=== PATIENT | male | born 1950 | race Caucasian/White ===

== ENCOUNTER 2016-07-20 23:26 | Inpatient (IN) | payer MEDICARE, MEDICAID ==
[~2016-07-20] VITALS: Ht 180.3 cm; Wt 137.4 kg
[2016-07-20 23:33] VITALS: BP 126/73; PULSE 163; RESP 30; O2SAT 86
[2016-07-21] VITALS (16 sets, daily range): BP systolic 88–138; BP diastolic 55–79; PULSE 94–142; RESP 18–25; O2SAT 79–93
--- NOTE | 2016-07-21 00:11 | ED.REPORT ---
HPI-General Illness Date of Service Jul 21, 2016 ED Provider: Dr. Emmett Laughlin The patient is a 65 year old male w/ a hx of chronic A. fib, and CHF who presents to the ED due to SOB for the past 8 days. Associated symptoms include nausea, bloated abdomen, insomnia, diaphoresis, chills, and cough. Pt is on a CPAP at home and he cannot sleep lying down due to SOB . He was hospitalized 2 years ago for similar symptoms. He denies any hx of heart disease, vomiting and chest pain. He has been excessively coughing to try to get a "lump" out of his throat. One year ago he had cardiac testing done which did not reveal any active ischemia. Pt is in rapid a-fib at the ED. Nursing Notes Stated Complaint: SHORT OF BREATH Chief Complaint: Respiratory Distress Nursing Notes Reviewed: Yes Allergies: Coded Allergies: No Known Allergies (Verified Allergy, Severe, POLLEN, 06/07/07) Scheduled Apixaban (Eliquis) 5 Mg Tablet 2.5 MG PO BID Digoxin (Digoxin) 125 Mcg Tablet 125 MCG PO DAILY Ferrous Gluconate (Ferrous Gluconate) 324 Mg Tab 324 MG PO DAILY Furosemide (Furosemide) 40 Mg Tablet 40 MG PO BID Metoprolol Succinate ER (Metoprolol Succinate ER) 50 Mg Tab.er.24h 50 MG PO BID Potassium Chloride (Potassium Chloride) 10 Meq Capsule.er 10 MEQ PO DAILY TAKE WITH FOOD Scheduled PRN Zolpidem (Zolpidem) 10 Mg Tablet 10 MG PO HS PRN PRN HS General Time Seen by MD: 00:11 Chief Complaint Other (shortness of breath ) Hx Obtained From: Patient Arrived By: Walk-in Sudden in Onset?: Yes Onset Occurred: 1 week ago Symptom Duration: Since onset Recent Healthcare: No recent doctor visit, No recent hospitalization Similar Sx Previous: No Past Medical History Past Medical History DM HTN atrial-fib Past Surgical History knee surgery hiatal hernia tonsillectomy Social History Alcohol Use: In recovery Other Social History: Local resident Ambulatory Status Independent Review of Systems bloated abdomen insomnia Full Review of Systems Constitutional: Reports: Chills Respiratory: Reports: Non-productive cough, Shortness of breath Cardiovascular: Denies: Chest pain GI: Reports: Nausea, Denies: Vomiting Skin: Reports Diaphoresis Complete sys rev & neg: except as marked. Physical Exam Vital Signs Vital Signs Date Time Temp Pulse Resp B/P Pulse Ox O2 Delivery O2 Flow Rate FiO2 07/20/16 23:33 36.8 163 30 126/73 86 Room Air Initial VS: Reviewed General/Constitutional: Awake, Alert, Cooperative Appearance / Presentation: Positive: Obese, morbidly, Pale Head / Eyes: Atraumatic, Normocephalic, PERRL, EOMI Respiratory / Chest: Atraumatic Resp Distress / Stridor: Positive: Resp distress mild Diminished Breath Sounds: Positive: Decreased L, Decreased R Rales / Rhonchi: Positive: Rales bilateral up to 1/3 Cardiovascular: No gallop, No murmurs, No rubs Heart Rate / Rhythm: Positive: Irreg irregular rhythm, Tachycardia Lower Ext Edema: Positive: Left 2+, Pitting, Right 2+ rapid a-fib Tenderness/Guarding/Rebound: Positive: Tender diffuse Bowel Sounds / Distention: Positive: Distention moderate Upper Extremities Upper Extremity / MS: Atraumatic, Inspection NL, No deformity Wrist / Hand: Atraumatic, Inspection NL, No deformity Lower Extremity / Pelvis / MS: Atraumatic, No deformity Ankle / Foot: Atraumatic, Inspection NL, No deformity Skin: Atraumatic, Warm, Dry Neurologic: Oriented X3, Speech NL, No motor deficits Interpretation & Diagnostics Lab Results Interpretation Result Diagram: 07/20/16 2354 07/20/16 2354 Test 07/20/16 23:54 07/21/16 00:00 White Blood Count 13.1th/mm3 (3.8-10.1) Red Blood Count 5.17mil/mm3 (4.40-5.80) Hemoglobin 15.5g/dL (13.8-17.2) Hematocrit 47.7% (41.0-50.0) Mean Corpuscular Volume 92.3fL (81-100) Mean Corpuscular Hemoglobin 30.0pg (27.0-35.0) Mean Corpuscular Hemoglobin Concent 32.5% (32.0-37.0) Red Cell Distribution Width 17.2% (12.3-15.4) Platelet Count 262bil/L (150-400) Neutrophils (%) (Auto) 79.1% (40-74) Lymphocytes (%) (Auto) 10.7% (14-46) Monocytes (%) (Auto) 9.4% (4-12) Eosinophils (%) (Auto) 0.1% (0-5) Basophils (%) (Auto) 0.2% (0-3) Prothrombin Time 22.0sec (8.1-12.5) Prothromb Time International Ratio 2.03ratio Activated Partial Thromboplast Time 30.7sec (22.8-33.0) Sodium Level 135mEq/L (134-144) Potassium Level 3.9mEq/L (3.5-5.2) Chloride Level 96mEq/L (97-108) Carbon Dioxide Level 20mmol/L (18-29) Blood Urea Nitrogen 23mg/dL (8-27) Creatinine 0.89mg/dL (0.76-1.27) Estimat Glomerular Filtration Rate 91mL/min (>59) Glucose Level 183mg/dL (60-99) Calcium Level 8.3mg/dL (8.5-10.1) Magnesium Level 2.0mg/dL (1.6-2.6) Total Bilirubin 3.2mg/dL (0.0-1.2) Aspartate Amino Transf (AST/SGOT) 1279U/L (0-50) Alanine Aminotransferase (ALT/SGPT) 922U/L (0-44) Alkaline Phosphatase 105U/L (25-160) Troponin T < 0.010ug/L (0.0-0.011) Pro-B-Type Natriuretic Peptide 3061pg/mL (0-376) Total Protein 6.8g/dL (6.4-8.4) Albumin 3.8g/dL (3.4-5.0) Thyroid Stimulating Hormone (TSH) 1.610uIU/mL (0.450-4.500) Direct Bilirubin 0.8mg/dL (0.0-0.3) Procalcitonin 0.48ng/mL (0.00-0.08) X-Ray Chest Interpretation Chest Xray Interpretation: IMPRESSION: CHF View: Portable Interpretation / Wet Read by: Wet read ED physician Re-Eval/Medical Decision Med Decision/Clinical Course 65-year-old with chronic A. fib, orthopnea PND and increasing congestive heart failure, now with rapid ventricular response with his A. 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 His heart rate is only grudgingly responded to diltiazem. He has had Lasix with some diuresis. Would consider digoxin while under observation in the hospital. Admitted now for further evaluation and management on a diltiazem drip. Time of Eval: 00:15 Re-Evaluation/Progress Note: Pt rechecked. Plan for Lasix. 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 Accepts admit. Counseled Regarding: Diagnosis, Lab results, Need for admission Discharge & Departure Primary Impression: CHF (congestive heart failure) Congestive heart failure type: unspecified congestive heart failure type Congestive heart failure chronicity: unspecified congestive heart failure chronicity Qualified Code: I50.9 - Heart failure, unspecified Additional Impressions: Atrial fibrillation Atrial fibrillation type: chronic Qualified Code: I48.2 - Chronic atrial fibrillation Paroxysmal nocturnal dyspnea Disposition: ADMITTED TO HOSPITAL Discharge Condition All VS Reviewed: Yes Condition: Stable Referrals: NOPCP (PCP) [facility] Crit Care Except Billable Proc Time Spent: 30-74 minutes Services Performed: Patient management by me, Time spent at bedside, Reviewing test results, Reviewing imaging, Discussing patient care, Documentation in record, Time with fam/surrogate Scribe Attestation Portion of this note were transcribed by Yahaira Martinez. I, Dr. Laughlin, personally performed the history, physical exam, and medical decision-making: I reviewed and confirmed the accuracy for the information in the transcribed note. Signed by: joseph Phan, 07/21/16 0500 copies to: [facility] Emmett Laughlin MD Jul 21, 2016 00:11 Yahaira Martinez Jul 21, 2016 00:16
[2016-07-21 00:13] LABS: BASOPHILS % (AUTO) 0.2 % (0-3); EOSINOPHILS % (AUTO) 0.1 % (0-5); MONOCYTES % (AUTO) 9.4 % (4-12); Mean Corpuscular Volume 92.3 fL (81-100); NEUTROPHILS % (AUTO) 79.1 % (40-74); Platelet Count 262 bil/L (150-400)
[2016-07-21] MEDS ORDERED: Diltiazem Inj 125 MG in 0.9% Sodium Chloride 100 ML, Pharmacy To Mix 1 EA IV SCH (00:20)
[2016-07-21] MEDS ORDERED: Furosemide 10 mg/mL 10 mL Inj IVPUSH ONE (00:20)
[2016-07-21] MEDS ORDERED: Diltiazem 5 mg/mL 5 mL Inj IVPUSH ONE ×2 (00:20→02:25)
[2016-07-21 00:37] LABS: INR 2.03 ratio
[2016-07-21 01:21] LABS: TROPONIN T < 0.010 ug/L (0.0-0.011)
[2016-07-21] MEDS ORDERED: Alum-Mag Hydrox-Simeth 30 mL Suspension PO PRN (02:10)
[2016-07-21] MEDS ORDERED: Ondansetron 2 mg/mL 2 mL Inj IVPUSH PRN (02:10)
[2016-07-21] MEDS ORDERED: Polyethylene Glycol (PEG) 17 Gm Powder PO PRN (02:10)
[2016-07-21 03:09] LABS: Bilirubin, Direct 0.8 mg/dL (0.0-0.3)
--- NOTE | 2016-07-21 03:13 | NUR ---
ADMISSION PATIENT ADMITTED TO ROOM 2018 Addendum: 07/21/16 at 0417 by KYLEE MONTOYA RN COMPLETED ADMISSION AND MED REC. PATIENT REPORTS "I CUT MY MEDICATION DOSES IN HALF, BUT I THINK I SHOULDN'T DO THAT ANYMORE." GIVEN MEAL REVIEWED PLAN OF CARE, CPAP AT BEDSIDE. Addendum: 07/21/16 at 0510 by KYLEE MONTOYA RN on arrival to room telemetry is afib rate 130's loc gtt running at 15 mg/hour.
--- NOTE | 2016-07-21 04:02 | PCM.HPMED ---
Subjective Date of Service Jul 21, 2016 Primary Provider: Admitting Physician: Cassandra Shahid DO Primary Care Physician: Ozzy Lowry MD Attending Physician: Cassandra Shahid DO Admit Status: From the Emergency Department Chief Complaint: shortness of breath History of Present Illness: 65-year-old male with past medical history remarkable for high output/ tachycardia associated cardiomyopathy, chronic systolic heart failure, and atrial fibrillation presents with 1 week of worsening shortness of breath. The patient states that he has noted the shortness of breath both with exertion stating he can only walk less than 50ft before needing to stop as well as lying flat. The patient states that he has not been able to sleep more than a few hours due to severe orthopnea. The patient states that he has had a dry cough recently which he is not sure is associated with his heart failure or seasonal allergies. The patient states that he believes his belly is more distended and with associated lower extremity swelling. The patient also admits to nausea without vomiting or diarrhea. Patient states that his heart rate is chronically elevated but not as elevated as it is today. The patient states that he continues to only take half of a tab about quits daily due to rectal bleeding he believes is due to hemorrhoids without a formal diagnosis. He has not had a colonoscopy ever. The patient is also only taking a half tab of metoprolol XL due to drug associated fatigue. 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 The patient had a possible gout flare after his last outpatient cardiology appointment delaying his scheduling of the cardioversion. He states that he lives in [facility] [address] however he remains a patient of Dr. Reeder and Dr. Lowry. Review of Systems: A comprehensive review of systems was obtained and all are negative except for what is included in the history of present illness. Allergies Coded Allergies: No Known Allergies (Verified Allergy, Severe, POLLEN, 06/07/07) Home Medications Ambien 10 mg tablet digoxin 125 mcg tablet take 1/2 tablet by oral route every day Eliquis take 1/2 tablet by oral route 2 times every day FERROUS GLUCONATE 324 MG TAB take 1 tablet by mouth once daily furosemide (LASIX) 40 MG tablet Take 1 tablet by mouth Two times daily. hydrocodone 7.5 mg-acetaminophen 325 mg tablet take 1 tablet by oral route every 8 hours as needed for pain Hyomax 0.125 mg Tab take 1 tablet by mouth four times a day losartan 25 mg tablet take 1 tablet by oral route every day metoprolol succinate ER 50 mg tablet,extended release 24 hr take 1 tablet by oral route 2 times every day Multiple Vitamin Tab take 1 tablet by ORAL route every day with food potassium chloride ER 10 mEq capsule,extended release take 1 capsule by oral route every day with food PMH Tachycardia-induced cardiomyopathy COPD Diabetes mellitus Hypothyroidism Hyperlipidemia Atrial fibrillation Hypertension Chronic lower back pain Cataracts Seasonal allergies IBS Sleep apnea Restless leg syndrome Moderate aortic arch aneurysm Seborrheic dermatitis Diverticulosis History of C. difficile infection Surgical History Tracheostomy in 2007 Percutaneous closure of patent foramen ovale 2007 Right inguinal hernia repair Tonsillectomy Knee surgery Family History The patient was adopted and does not know the health history of his mother or father or 2 siblings. Social History Occupation: retired white Hx Alcohol Use: Yes (quit in 2007) Hx Substance Use: Yes (marijuana only) Hx Tobacco Use: Yes (quit in 2007) Smoking Status: Former Smoker Years of Smokin Living Arrangement: Alone Exam Vital Signs Vital Sign - Last Date Time Temp Pulse Resp B/P Pulse Ox O2 Delivery O2 Flow Rate FiO2 07/21/16 03:06 123 07/21/16 02:55 36.8 20 126/64 90 Nasal Cannula 5 Exam Gen.: obese male in no acute distress sitting comfortably in bed Eyes: Pupils equal round and reactive to light, extraocular motion intact, mild icteric sclera, noninjected conjunctiva HENT: Normocephalic atraumatic, moist mucous membranes without central cyanosis , sublingual jaundice noted without cobblestoning mucosa Neck: Supple, trachea midline, thick neck without noted JVD Cardiovascular: tachycardia with irregularly irregular rhythm, no murmurs rubs or gallops noted Lungs: rales noted in the bases bilaterally, no wheezing noted GI: nontender, normal active bowel sounds, distended, tympanic to percussion Extremities: 2+ peripheral edema to the knee, Pulses intact at radial and dorsalis pedis bilaterally Skin: Warm and dry, very mild chronic venous stasis changes in bilateral lower extremities right worse than left : No Kiser in place Lymph: no cervical or supraclavicular lymphadenopathy Neuro: No focal neurologic deficits MSK: no erythema or edema of joints, ROM is WNL Psych: Normal mood and affect Lab and Diagnostics Result Diagram: 07/20/16 0966 07/20/16 0033 Cardiac Echo Impressions Echocardiogram Report from 10/30/2014 Interpretation Summary The left ventricle is mild-moderately dilated. Left ventricular systolic function is moderately reduced. The ejection fraction is estimated to be 40- 45%. There is moderate hypokinesis along the septum and basal/mid inferior wall with the lateral wall showing preserved augmentation. The right ventricle is mildly dilated. Right ventricular systolic function is mildly reduced. The right ventricular systolic pressure is estimated at 35 mmHg assuming a right atrial pressure of 3 mm Hg. The left atrium is severely dilated. The right atrium is severely dilated. An ASD closure device is visualized. There is mild mitral regurgitation. There is no other significant valvular heart disease. The aortic root is moderately dilated. The ascending aorta is mildly enlarged. Reading Physician:PM Assessment & Plan 65-year-old male with past medical history remarkable for high output/ tachycardia associated cardiomyopathy, chronic systolic heart failure, and atrial fibrillation presents with 1 week of worsening shortness of breath. # atrial fibrillation with rapid ventricular response - Records indicate the patient was last seen by cardiology in May 2016 with plans for possible cardioversion in the future, and switched from carvedilol to metoprolol XL with possible future induction of diltiazem with improved ejection fraction - ECG shows A. fib with RVR - Patient given diltiazem loading dose 10mg and continued on diltiazem drip from ED - Complete echo ordered - Continue outpatient Apixaban at standard dosing, monitoring for lower GI bleed per patient report with full regular dosing - Continue outpatient metoprolol XL 50mg daily - Optimize electrolytes, monitor with daily BMP # Tachycardia induced cardiomyopathy - Echocardiogram from 2014 shows EF of 40-45% - Continue outpatient metoprolol XL 50 mg daily - Continue outpatient digoxin 0.0625mg - Patient given diltiazem loading dose 10mg and continued on diltiazem drip from ED # Acute exacerbation of Chronic systolic heart failure - Patient appears hypervolemic on exam, and elevated Pro-BNP 3061 - Echocardiogram from 2014 shows EF of 40-45% - Continue outpatient metoprolol XL 50 mg daily - Continue outpatient losartan 25 mg daily - Patient already received furosemide 80 mg IV push once in the ED - Lasix 40mg IV at twice daily at 08:30 and 14:30 # Leukocytosis - Patient is SIRS positive with WBC 13.1, heart rate 163, respiratory rate 30 - Elevated Lactic Acid 2.5 with elevated procalcitonin of 0.48 consistent with possible infection - No definitive source of infection is identified and patient does not appear acutely infectious at this time - Patient is hypervolemic with CHF described above avoid IV fluids - Acute hepatitis panel ordered - Blood cultures ordered - CXR ordered and pending - Patient has a history of C. difficile infection avoid unwanted antibiotics # Transaminitis with elevated indirect bilirubin - AST 1279 and ALT 922 with indirect bilirubin 2.4 - Patient denies risky sexual activity or illicit drug use - Acute hepatitis panel ordered - Potential congestive hepatopathy # Diabetes mellitus - Per [facility] records which also indicated an A1c of 5.8 in September 2015 - Correction scale lispro ordered - Constant carb diet # Subclinical Hypothyroidism - Per [facility] records which also indicated an TSH of 0.811 in June 2012 - TSH ordered - Not currently on outpatient medication # Hyperlipidemia - Per [facility] records which also indicated LDL 107, HDL 39, total cholesterol 177 - Not currently on outpatient medication # History of Moderate aortic arch aneurysm - Complete echo ordered - Monitor # History of lower GI bleed - [facility] records indicate possible diverticulosis - Patient indicates bright blood on toilet tissue when taking full dose of Apixaban - Encourage patient to obtain colonoscopy in near future - Hemoglobin is 15.5 - Monitor with initiation of full dose Apixaban DVT prophylaxis: Continue Apixaban GI prophylaxis: Not indicated CODE STATUS full The patient is admitted to inpatient status with expected length of stay greater than 2 midnights given presenting symptoms likely diagnosis possible complications and required treatment. Pain Evaluation: Adequate Pain Control GI Prophylaxis: Not indicated VTE Prophylaxis Indicated: Meets Criteria for Anticoag Therapy VTE Prophylaxis: Other (on our was chronically) Resuscitation Status: CPR: Attempt Resuscitation Attending Statement The patient was seen and examined together with house staff on 07/21/2016 and I agree with the history, exam and plan as outlined in the note above. Fam Baker DO Jul 21, 2016 04:02 Cassandra Shahid DO Jul 21, 2016 05:40
[2016-07-21] MEDS ORDERED: DIGO125T73 PO (04:13)
[2016-07-21] MEDS ORDERED: METO-272 PO (04:13)
[2016-07-21] MEDS ORDERED: ZOLP10TA5 PO (04:13)
[2016-07-21] MEDS ORDERED: APIX5TAB PO (04:14)
--- NOTE | 2016-07-21 04:43 | NUR ---
anxiety patient is very anxious about his belongings. does not want staff touching his belongings. states 'you are going to break it." will not allow his home medications or wallet to be checked in the pharmacy and safe. states "they are mine. you have no right." when his toothpaste fell off the table and i picked it up he said "you are manhandling my belongings." discussed the medications staying in the room with discharge specialist elton. patient given belongings waver to sign to keep his medications at the bedside. this includes eliquis, metoprolol and zolipidem and digoxin. explained to patient it is imperative that he does not take his medications while in the room. patient agreed. patient refuse to have bp cuff on his arm until he was "ready." care ongoing. Addendum: 07/21/16 at 0554 by KYLEE MONTOYA RN agreed to have bp every 2 hours. requests a different room. states he feels like he is in a "storage closet.' does not care for the bed. states it is uncomfortable. not able to tolerate cpap machine. care ongoing. Addendum: 07/21/16 at 0554 by KYLEE M BOLLES RN refuses bedside pulse oximetry.
[2016-07-21] MEDS ORDERED: FEG324 PO (05:04)
[2016-07-21] MEDS ORDERED: FURO40TA4 PO (05:04)
[2016-07-21] MEDS ORDERED: POTA10CA42 PO (05:04)
[2016-07-21] MEDS ORDERED: Glucose 40% Oral Gel 15 Gm Tube PO PRN (05:05)
--- NOTE | 2016-07-21 06:39 | NUR ---
oxygen need patient requirement increased. 9 liters oxymask for sats 88-90%. coarse breath sounds. rr 22. sitting at side of bed states "when i lie down i can't breathe." coughing up dark brown sputum. anxious. requests "more lasix." states "dont' just turn up my oxygen. get me lasix." cookpaged resident. awaiting call back Addendum: 07/21/16 at 0740 by KYLEE MONTOYA RN recieved orders for lasix 40mg give am dose now. (administered) recieved orders for ativan 0.5mg po ativan (given) paged resident and requested a chest xray. ordered. patient sitting at side of bed. requesting to order breakfast. asked patient to please be compliant with his oxygen (he takes the mask off). requests new bed. passed on to day shift. care ongoing.
[2016-07-21] MEDS ORDERED: LORazepam 0.5 mg Tablet PO ONE (06:45)
[2016-07-21] MEDS: Furosemide 10 mg/mL 4 mL Inj IVPUSH SCH ×2 (07:01→16:08)
[2016-07-21] MEDS: Insulin LISPRO 300 Unit/3 mL Inj SUBQ SCH ×4 (08:00→21:23)
[2016-07-21] MEDS ORDERED: Heparin 5,000 Unit/mL Inj SUBQ SCH (08:30)
[2016-07-21] MEDS: MeTOProlol XL 50 mg ER24 Tablet PO SCH (08:30)
--- NOTE | 2016-07-21 09:10 | DRSVH ---
PROCEDURE: X-RAY CHEST ONE VIEW, PORTABLE ([id number]) INDICATIONS: SOB TECHNIQUE: One view of the chest was acquired. COMPARISON: [facility], CR, XR CHEST 2VW, 10/10/2014, 15:03. [facility], CR , CHEST 1VW (PORTABLE), 06/18/2007, 6:22. FINDINGS: Surgical changes and devices: None. Lungs and pleura: No pleural effusions or pneumothorax. Lungs are clear and interstitium is promine nt. Mediastinum: Mediastinal contours appear normal. Heart size is enlarged. Bones and chest wall: No suspicious bony lesions. Overlying soft tissues appear unremarkable. IMPRESSION: Cardiomegaly and interstitial prominence. No definite acute cardiopulmonary process. Dictated by: Justice MARTINEZ Interpreted: Catalina Maxwell MD on 07/21/2016 at 9:09 Transcribed by: WILSON on 07/21/2016 at 9:09 Approved by: Catalina Maxwell M.D. on 07/21/2016 at 10:14
[2016-07-21] MEDS ORDERED: cefTRIAXone Inj 2,000 MG in Dextrose 5% Minibag Plus 50 ML IV SCH (12:00)
[2016-07-21] MEDS ORDERED: 0.9% Sodium Chloride 250 ML ONE (13:37)
--- NOTE | 2016-07-21 14:08 | PCM.PNMED ---
Subjective Date of Service Jul 21, 2016 Subjective Mr. Bui remains quite dyspnic and tachycardic. He continues to be intermittently noncompliant with care, frequently found without oxygen in place , manually deactivated his Dilt drip, and is generally difficult to work with and highly demanding of nursing care. He denies chest pain, nausea, vomiting, or diarrhea. He does relate that his abdomen has been increasing in circumference lately. Overnight the patient was very noncompliant with oxygen, yet frequently complaining of SOB. Comprehensive ROS negative except as listed above. Exam Vital Signs Vital Sign - Last Date Time Temp Pulse Resp B/P Pulse Ox O2 Delivery O2 Flow Rate FiO2 07/21/16 12:57 117 07/21/16 12:56 24 138/75 89 Simple Mask 9.00 07/21/16 02:55 36.8 Intake and Output 07/20/16 07/20/16 07/21/16 Cumulative From/Thru 14:59 22:59 06:59 07/20/16 23:33 - 07/21/16 05:25 Intake Total 275 ml 275 ml Output Total 475 ml 475 ml Balance -200 ml -200 ml Intake Oral 200 ml 200 ml IV Total 75 ml 75 ml Output Urine Total 475 ml 475 ml Exam Gen: A/O x3 somewhat anxious gentleman in mild acute distress secondary to SOB Neck: Large circumference neck with approximately 3 cm x 5 cm mass at the right base consistent with lipoma HEENT: PERRL, EOMI, no scleral icterus, no conjunctival pallor CV: Very distant heart sounds, irregularly irregular, no perceptible murmurs Resp: Lungs with mild bibasilar crackles, no wheezing rales or rhonchi Abd: Large protuberant belly, cannot appreciate fluid wave but patient refused to lie supine Extr: Moderate BL LE edema, no cyanosis or clubbing Neuro: CN 2-12 grossly intact, no focal neurologic deficit Psych: Very tangential conversation, anxiety about course of care, appropriate IVs and Medications IV Fluids 425 ml NS delivered with IV meds Medications Reviewed: Medications were reviewed in detail Lab and Diagnostics Item Value Date Time Red Blood Count 5.17 mil/mm3 07/20/162353 Mean Corpuscular Volume 92.3 fL 07/20/162353 Mean Corpuscular Hemoglobin 30.0 pg 07/20/162353 Mean Corpuscular Hemoglobin Concent 32.5 % 07/20/162353 Red Cell Distribution Width 17.2 % H 07/20/162353 Neutrophils (%) (Auto) 79.1 % H 07/20/162353 Lymphocytes (%) (Auto) 10.7 % L 07/20/162353 Monocytes (%) (Auto) 9.4 % 07/20/162353 Eosinophils (%) (Auto) 0.1 % 07/20/162353 Basophils (%) (Auto) 0.2 % 07/20/162353 Estimat Glomerular Filtration Rate 91 mL/min 07/20/162353 Calcium Level 8.3 mg/dL L 07/20/162353 Magnesium Level 2.0 mg/dL 07/20/162353 Total Bilirubin 3.2 mg/dL H 07/20/162353 Aspartate Amino Transf (AST/SGOT) 1279 U/L H 07/20/162353 Alanine Aminotransferase (ALT/SGPT) 922 U/L H 07/20/162353 Alkaline Phosphatase 105 U/L 07/20/162353 Troponin T < 0.010 ug/L 07/20/162353 Pro-B-Type Natriuretic Peptide 3061 pg/mL H 07/20/162353 Total Protein 6.8 g/dL 07/20/162353 Albumin 3.8 g/dL 07/20/162353 Lactic Acid Level 3.0 mmol/L H 07/21/16 1015 Direct Bilirubin 0.8 mg/dL H 07/21/16 0000 Procalcitonin 0.48 ng/mL H 07/21/16 0000 Thyroid Stimulating Hormone (TSH) 1.610 uIU/mL 07/20/162353 Result Diagram: 07/20/16235307/20/162353 X-Rays, CTs and MRIs X-RAY CHEST ONE VIEW, PORTABLE IMPRESSION: Cardiomegaly and interstitial prominence. No definite acute cardiopulmonary process. Dictated by: Justice MARTINEZ Interpreted: Catalina Maxwell MD on 07/21/2016 at 9:09 Transcribed by: WILSON on 07/21/2016 at 9:09 Approved by: Catalina Maxwell M.D. on 07/21/2016 at 10:14 . Cardiac Echo Impressions Echocardiogram Report from 10/30/2014 Interpretation Summary The left ventricle is mild-moderately dilated. Left ventricular systolic function is moderately reduced. The ejection fraction is estimated to be 40- 45%. There is moderate hypokinesis along the septum and basal/mid inferior wall with the lateral wall showing preserved augmentation. The right ventricle is mildly dilated. Right ventricular systolic function is mildly reduced. The right ventricular systolic pressure is estimated at 35 mmHg assuming a right atrial pressure of 3 mm Hg. The left atrium is severely dilated. The right atrium is severely dilated. An ASD closure device is visualized. There is mild mitral regurgitation. There is no other significant valvular heart disease. The aortic root is moderately dilated. The ascending aorta is mildly enlarged. Reading Physician:PM Assessment & Plan 65-year-old male with past medical history remarkable for high output/ tachycardia associated cardiomyopathy, chronic systolic heart failure, and atrial fibrillation presents with 1 week of worsening shortness of breath. Patient is intermittently compliant with care, frequently removes oxygen and then complains of SOB, manually switched off Dilt drip for no explicable reason , and patients Digoxin level was essentially zero despite his assurance that he takes that med as directed. Ongoing concern for as yet not established infection , likely pulmonary or abdominal source. Self reports that he takes Metoprolol and eliquis at half recommended dosing. atrial fibrillation with rapid ventricular response, POA, acute on chronic. Active - Records indicate the patient was last seen by cardiology in May 2016 with plans for possible cardioversion in the future, and switched from carvedilol to metoprolol XL with possible future induction of diltiazem with improved ejection fraction - ECG shows A. fib with RVR - Patient given diltiazem loading dose 10mg and continued on diltiazem drip from ED - Complete echo ordered - Continue outpatient Apixaban at standard dosing, monitoring for lower GI bleed per patient report with full regular dosing - Continue outpatient metoprolol XL 50mg daily - Optimize electrolytes, monitor with daily BMP Tachycardia induced cardiomyopathy, POA, chronic. Active - Echocardiogram from 2014 shows EF of 40-45% - Continue outpatient metoprolol XL 50 mg daily - Continue outpatient digoxin 0.0625mg(Dig level undetectable) - Patient given diltiazem loading dose 10mg and continued on diltiazem drip from ED Acute exacerbation of Chronic systolic heart failure, POA, acute on chronic. Active - Patient appears hypervolemic on exam, and elevated Pro-BNP 3061 - Echocardiogram from 2014 shows EF of 40-45% - Continue outpatient metoprolol XL 50 mg daily - Continue outpatient losartan 25 mg daily - Patient received furosemide 80 mg IV push once in the ED - Lasix 40mg IV at twice daily at 08:30 and 14:30 Leukocytosis, POA, acute. Active - Source likely either pulmonary or abdominal(SBP) - Patient is SIRS positive with WBC 13.1, heart rate 163, respiratory rate 30 - Elevated Lactic Acid 2.5 with elevated procalcitonin of 0.48 consistent with possible infection - No definitive source of infection is identified and patient does not appear acutely infectious at this time - Patient is hypervolemic with CHF described above avoid IV fluids - Acute hepatitis panel ordered - Blood cultures ordered - CXR ordered and pending - Abdominal US ordered to eval for possible diagnostic abdominocentesis to eval for SBP - ID consulted and we appreciate their input Acute liver failure with elevated indirect bilirubin and transaminase, POA, chronicity uncertain. Active - AST 1279 and ALT 922 with indirect bilirubin 2.4 - Meld 20 indicative of 6% 3 month mortality, Maddrey discriminate function 53 indicative of benefit from steroids - Prednisone 40 mg daily - Patient denies risky sexual activity or illicit drug use - Acute hepatitis panel ordered - Potential congestive hepatopathy - Abdominal US as above Diabetes mellitus type 2, POA, chronic. Active - Per [facility] records which also indicated an A1c of 5.8 in September 2015 - Correction scale lispro ordered - Constant carb diet - A1c repeated Subclinical Hypothyroidism, POA, chronic. Active - Per [facility] records which also indicated an TSH of 0.811 in June 2012 - TSH within normal limits - Not currently on outpatient medication Hyperlipidemia, POA, chronic. Active - Per [facility] records which also indicated LDL 107, HDL 39, total cholesterol 177 - Not currently on outpatient medication - Withholding Statin due to liver failure History of Moderate aortic arch aneurysm, POA, chronic. Active - Complete echo ordered - Monitor History of lower GI bleed, POA, chronicity uncertain. Active - [facility] records indicate possible diverticulosis - Patient indicates bright blood on toilet tissue when taking full dose of Apixaban - Encourage patient to obtain colonoscopy in near future - Hemoglobin is 15.5 - Monitor with initiation of full dose Apixaban DVT prophylaxis: Continue Apixaban GI prophylaxis: Not indicated CODE STATUS full Disposition: Patient will likely be able to DC home with no needs in the next 1- 3 days depending upon identification of his potential infectious etiology and rate control of his Afib. Pain Evaluation: Adequate Pain Control GI Prophylaxis: Not indicated VTE Prophylaxis: Other Resuscitation Status: CPR: Attempt Resuscitation Attending Statement The patient was seen and examined together with Dr. Thompson on 07/21/2016 and I agree with the history, exam and plan as outlined in the note above. . Guillermo Thompson DO Jul 21, 2016 14:08 Joel Jacobson MD Jul 22, 2016 07:38
[2016-07-21] MEDS ORDERED: Furosemide 10 mg/mL 4 mL Inj IVPUSH SCH (14:30)
--- NOTE | 2016-07-21 14:42 | DRSVH ---
PROCEDURE: US ABDOMEN, LIMITED ([id number]) INDICATIONS: eval for ascites possiblity for tap TECHNIQUE: Real-time focused scanning was performed of the abdomen, with image documentation. COMPARISON: None. FINDINGS: No ascites throughout the 4 quadrants of the abdomen. Incidental note is made of cortical thinning of the kidneys bilaterally with increased echogenicity. No hydronephrosis is evident. Ther e also is increased coarse echogenicity of the liver. IMPRESSION: 1. No ascites. 2. Probable chronic liver and kidney disease. No hydronephrosis of the kidneys. Dictated by: Justice MARTINEZ Interpreted: Kevin Kearney MD on 07/21/2016 at 14:40 Transcribed by: JACKY on 07/21/2016 at 14:42 Approved by: Kevin Kearney M.D. on 07/21/2016 at 15:10
--- NOTE | 2016-07-21 15:42 | NUR ---
Noncompliance Pt has been refusing to wear supplemental oxygen for much of the shift. Has to be reminded frequently to put his oxy mask back on and oftentimes would say that he wasn't going to put it on. He is also refusing to wear a nasal cannula. He reports that he is able to increase his own oxygen saturation level if he focuses on his breathing. He is refusing to wear a continuous pulse oximeter. Periodic checks of oxygen saturation showed o2 sats in the 80's on RA. Pt educated on the risk/danger of hypoxia but continues to wear supplemental oxygen only occasionally. He has refused to be on an MP30 monitor or the electronic device monitor in his room. At this time the patient is on remote tele. He was accepting of AM medications after initially refusing. He refused blood glucose check in the AM and insulin coverage at lunch (blood glucose was 188).
--- NOTE | 2016-07-21 16:05 | DRSVH ---
[facility] [address] [place] [address] Echocardiogram Report Name: KESHA PANIAGUA ate: 07/21/2016 Height: 71 in Hospital Exam Location: [facility] Weight: 31 5 lb Gender: Male BSA: 2.6 m2 : 1950 Age: 65 yrs BP: 130/79 mmHg Reason For Study: Hypervolemia Ordering Physician: HOSPITALIST [facility] Performed By: Gerson Kent Referring Physician: ABDIFATAH CRUZ Interpretation Summary The left ventricle is moderately dilated. The ejection fraction is estimated to be 20-25%. There is severe global hypokinesis of the left ventricle. Compared to the prior exam, left ventricular function is significantly decreased. The right ventricle is moderately dilated. Right ventricular systolic function is moderately reduced. There is severe biatrial enlargement. There is no Doppler evidence for an interatrial shunt. There is moderate mitral regurgitation. There is moderate tricuspid regurgitation. The right ventricular systolic pressure is estimated at 45 mmHg assuming a right atrial pressure of 15 mm Hg. Procedure: A two-dimensional transthoracic echocardiogram with color flow and Doppler was performed. The study quality was technically adequate. A contrast injection of Definity was performed to improve assessment of LV function. Comparison is made with the echocardiogram of 10/05/15. The patient was in atrial fibrillation with heart rates between 88-122 bpm during the exam. Left Ventricle: The left ventricle is moderately dilated. Left ventricular wall thickness is borderline increased. The ejection fraction is estimated to be 20-25%. Compared to the prior exam, left ventricular function is significantly decreased. There is severe global hypokinesis of the left ventricle. Diastolic function could not be accurately assessed due to atrial fibrillation. Right Ventricle: The right ventricle is moderately dilated. Right ventricular systolic function is moderately reduced. Atria: There is severe biatrial enlargement. There is no Doppler evidence for an interatrial shunt. Mitral Valve: The mitral valve leaflets appear borderline thickened, but open well. There is moderate mitral regurgitation. Aortic Valve: The aortic valve is normal in structure and function. There is trace aortic regurgitation. Tricuspid Valve: The tricuspid valve leaflets are thickened and/or calcified, but open well. There is moderate tricuspid regurgitation. The right ventricular systolic pressure is estimated at 45 mmHg assuming a right atrial pressure of 15 mm Hg. Pulmonic Valve: The pulmonic valve is not well seen, but is grossly normal. There is mild pulmonic regurgitation. Great Vessels: The aortic root is normal size. The ascending aorta is mild- moderately enlarged. The pulmonary artery is not well visualized, but is probably normal size. The IVC is dilated (diameter is greater than 2.1 cm) and it collapses less than 50% with a sniff. This suggests a high right atrial pressure of 15 mm Hg. Pericardium/ Pleura There is no pericardial effusion. There is no pleural effusion. MMode/2D Measurements & Calculations LVIDd: 6.8 cm RA long axis: 6.1 cm LVOT diam LVIDs: 5.9 cm LA A2 area: 30.4 cm FS: 13.2 % LA A4 area: 32.0 cm RA area: 33.6 cm AoV Opening EPSS: 2.0 cm LA length (vol): 6.2 cm RA vol: 157.4 ml IVSd: 1.1 cm LA vol: 133.2 ml RA : 61.5 ml/m2 Ao root diam LVPWd: 1.0 cm LA vol index asc Aorta Diam: 4.1 cm IVC diam: 3.0 cm EDV(MOD-sp2) LV giang. diameter/BSA LV sys. diameter/BSA RVD1 (basal) (cm/m^2): 2.6 (cm/m^2): 2.3 : 5.4 cm ESV(MOD-sp2) EF(MOD-sp2) TAPSE: 0.58 cm Doppler Measurements & Calculations Ao V2 max MV E max arben Med Peak E' Arben TR max arben : 98.0 cm/sec : 109.9 cm/sec : 274.6 cm/sec Ao max PG E/E' med: 19.3 TR max P.3 mmHg : 3.9 mmHg Lat Peak E' Arben PA V2 max: 48.0 cm/sec Ao mean PG PA mean P.50 mmHg E/E' lat: 10.6 LVOT Max Arben E/e' average : 75.8 cm/sec SUNDAY(I,D): 3.8 cm sev ratio Ao V2 mean LV V1 max PG PA V2 mean SUNDAY indexed to BSA : 76.3 cm/sec : 33.0 cm/sec (cm^2/m^2): 1.5 Ao V2 VTI LV V1 VTI: 9.7 cm PA pr(Accel) : 44.7 mmHg SUNDAY(V,D): 3.6 cm2 Electronically signed by: Jean Marie Arteaga on Reading Physician:07/21/2016 04:04 PM
[2016-07-21] MEDS: predniSONE 20 mg Tablet PO SCH (16:09)
[2016-07-21] MEDS ORDERED: Amiodarone 150 mg/100 mL D5W 150 MG in IV Premix 1 EACH IV ONE ×2 (19:15→19:50)
[2016-07-21] MEDS ORDERED: IV Premix 1 EACH IV ONE (20:20)
[2016-07-21] MEDS ORDERED: Amiodarone 360 mg/200 mL D5W Premix IV ONE (20:20)
[2016-07-21] MEDS: Amiodarone 360 mg/200 mL D5W 360 MG, Filter, Taxol 14256-28 1 EACH in IV Premix 1 EACH IV SCH (20:27)
--- NOTE | 2016-07-21 22:05 | CONS ---
[address] [address] CONSULTATION REPORT PATIENT: KESHA PANIAGUA : 1950 MR#: [id number] ADMIT: 07/21/2016 JOB ID: [id number] DATE OF SERVICE: 07/21/[address] Thompson for this timely consult. REASON FOR CONSULTATION: Pulmonary infiltrates in a patient with elevated procalcitonin. HISTORY OF THE PRESENT ILLNESS: The patient is a complex 65-year-old gentleman with longstanding cardiac disease including cardiomyopathy, congestive heat failure and atrial fibrillation. The patient is on a complex medical regimen for this but his compliance is uncertain. He recently moved to the [facility] in [facility] a while ago but continues to come up and see his physicians in [facility] and to get his followup care here. The patient was admitted overnight with increasing shortness of breath and dyspnea on exertion which has been going on for about a week. Because of concerns about possible pneumonia he was started on azithro and ceftriaxone, and we were consulted regarding whether or not he may have an infection. Note that the patient himself though says he has had no fevers, no chills, no sweats, no symptoms of sinusitis. He is short of breath with exertion and has a dry cough, but no purulent sputum. No diarrhea, no symptoms of urinary tract infection are noted. He does tell us in great detail about his recent struggles with gout which he said was diagnosed on the basis of uric acid level of 9.6. He also notes that he has been quite inactive during the last six months and has been basically confined to the house "eating donuts" for the last six months. PAST MEDICAL HISTORY: 1. Organic heart disease. a. Cardiomyopathy. b. Congestive heart failure. c. Atrial fibrillation. 2. COPD. 3. Diabetes mellitus. 4. Hyperlipidemia. 5. Hypothyroidism. 6. Chronic back pain. 7. Aortic arch aneurysm. 8. History of C. diff. SOCIAL HISTORY: The patient is a retired white. He quit smoking and drinking 10 years ago. He had about a 40 pack-year history of smoking before he quit. He lives alone in [place] at this point. FAMILY HISTORY: The patient has no known family history as he is adopted. He has no history that he is aware of, of tuberculosis. REVIEW OF SYSTEMS: The patient has no significant headache. No acute visual change. No sore throat. He has a nonproductive cough worse with exertion. No nausea, vomiting, diarrhea. No dysuria. He notes swelling of his legs but this is diffuse and bilateral. No skin rash he is aware of. Remainder of the review of systems negative. PHYSICAL EXAMINATION: Reveals a morbidly obese gentleman. BMI 44, weight 142 kg, which is slightly over 300 pounds. He is afebrile and has been since admission, which was just before midnight. Temperature currently 36.8, his pulse is 110 through 125, respiratory rate in the low to mid 20s. Blood pressure 138/75. He is saturating 89% and that requires a 9 L mask. Of note, the patient is not at all compliant, constantly takes off his mask, and has also even interrupted his intravenous drips. Despite these seemingly inappropriate actions, the patient is awake,alert, oriented and seems quite affable. Examination of the head: No trauma. Sinuses nontender. Eyes without conjunctivitis. Oral cavity: No thrush or hairy leukoplakia. Teeth are in fairly good repair. Neck is reasonably supple without adenopathy. Lungs notable for a few crackles at the right base. Fair air flow. Cardiac tones tachycardic and hard to discern if there is a murmur or not, but he has irregular rate and rhythm. Abdomen is distended, very obese without appreciable organomegaly, but it would be hard to tell given his girth. No obvious ascites. His inguinal nodes cannot be examined because of his size. He does not have a Kiser. No suprapubic tenderness can be appreciated, but again that would be difficult given his size. He has no evidence of synovitis. His lower extremities are notable for 2+ edema which extends above the knees bilaterally. Venous stasis changes are present bilaterally. The patient has difficult to palpate pulses in his feet because of edema, but he does have palpable dorsal pedal and posterior tibial pulses. Fair capillary refill is noted as well. Neurologically, he is intact, he can move around the room but slowly and with difficulty. LABORATORIES: Include white count 13,000; 79% segs. Lactic acid 2.8. Creatinine 0.89. Procalcitonin 0.48 on single measurement. Liver function tests are quite abnormal. His AST is 1279, his ALT 922, alk phos 105. Albumin 3.8. TSH 1.6. Digoxin level was not measurable when he was admitted. Hep B and hep C serologies are pending. Blood cultures are negative. IMAGING: Includes a chest x-ray which shows cardiomegaly and interstitial prominence bilaterally. Abdominal ultrasound of the right upper quadrant shows no ascites with what appears to be chronic liver disease with increased coarse echogenicity. An echocardiogram was just done. The tech gave us an unofficial estimate of his ejection fraction of 20% to 25% which is much worse than 45% two years ago. IMPRESSION: The patient does not look infected in any way to me. It would seem to me that most everything here can be explained by considerable worsening of his congestive heart failure and drop in his ejection fraction. The infiltrates on chest radiograph likely represent fluid overload and his cough and shortness of breath are likely a consequence of that. His LFTs are most likely explained by passive liver congestion on the basis of congestive heart failure. His gout may have contributed to the mildly elevated white blood count he had on admission. RECOMMENDATIONS: 1. I would discontinue all antibiotics at this time. 2. Infectious Disease will be available if there are additional questions or problems. For now, we are going to go ahead and sign off on this case as I really do not suspect strongly that he has any form of infection. Thank you very much for this consult.
[2016-07-22] VITALS (14 sets, daily range): BP systolic 87–136; BP diastolic 60–83; PULSE 102–123; RESP 15–28; O2SAT 89–95
[2016-07-22 02:08] LABS: Hepatitis A Antibody IgM Negative (Negative); Hepatitis B Core Antibody IgM Negative (Negative)
[2016-07-22] MEDS ORDERED: Amiodarone 360 mg/200 mL D5W Premix IV ONE (02:44)
[2016-07-22] MEDS ORDERED: IV Premix 1 EACH IV ONE (02:44)
[2016-07-22] MEDS: Amiodarone 360 mg/200 mL D5W 360 MG, Filter, Taxol 14256-28 1 EACH in IV Premix 1 EACH IV SCH (02:49)
[2016-07-22 03:20] LABS: BASOPHILS % (AUTO) 0.1 % (0-3); EOSINOPHILS % (AUTO) 0 % (0-5); MONOCYTES % (AUTO) 4.3 % (4-12); Mean Corpuscular Hemoglobin 29.7 pg (27.0-35.0); NEUTROPHILS % (AUTO) 85.1 % (40-74); Platelet Count 270 bil/L (150-400)
[2016-07-22 03:31] LABS: INR 2.29 ratio
[2016-07-22 03:59] LABS: Magnesium 2.3 mg/dL (1.6-2.6); Phosphorus 4.7 mg/dL (2.5-4.9)
--- NOTE | 2016-07-22 04:19 | ABG ---
DateTimeAnalyzed 04:13:00 -_ pH ____7.361 - 7.350 7.450 pCO2 ___44.8__ -mmHg 35.0 45.0 pO2 ___71.6__ -mmHg 69.0 116 HCO3- ___24.7__ -mmol/L 22.0 26.0 ABE ___-0.5__ -mmol/L -2.0 2.0 tHb ___15.5__ -g/dL O2Hb ___89.8__ -% COHb ____1.8__ -% MetHb ____0.8__ -% sO2 ___92.2__ -% 25.0 FIO2 ___80.0__ -% Drawn By blf - Date/Time Notified____ 04:18:00 -_ Spontaneous_RR ___20.0__ -b/min Liter_Flow ___20.0__ -L/min Oxygen Device 1 _oxy mask - Notified By blf - Notified Whom Miladys Pukwana RN - B 760 -mmHg tO2 ___19.6__ -Vol% Nain test _Positive -
--- NOTE | 2016-07-22 05:08 | NUR ---
Education / Resp Patient continues to be non-compliance with treatment. At the beginning of the shift nearly an hour was spent talking with him and educating him about his respiratory status, KANG, a-fib, the medications he is on to treat these conditions. Patient continues to take monitor off to get up to the bathroom, take of O2 mask, and take off pulse ox. Resp During spot checks of patient's oxygen he is found mostly in the 70s-80s but is seen at 69% once as well. Patient continues to take oxymask off. During vital sign check he is found to have increases RR in the 30s, have dusky looking feet, be grunting, using accessory muscles, and speak only 4-5 words at a time. Patient appears exhausted. All of these symptoms are explained to the patient and the great concern for continued respiratory deterioration. MD notified. Orders received for ABG. RT in to assess. Orders received for Bipap. Patient had been refusing his home CPAP machine but is agreeable to the bipap at this point. Patient falls asleep after it is placed and he appears comfortable. Addendum: 07/22/16 at 0601 by VIVEK VERDUGO RN Charge nurse also in patient room providing education on the importance of remaining on monitors during his current treatments.
[2016-07-22] MEDS: predniSONE 20 mg Tablet PO SCH (07:58)
[2016-07-22] MEDS: Furosemide 10 mg/mL 4 mL Inj IVPUSH SCH ×2 (07:59→14:30)
[2016-07-22] MEDS: MeTOProlol XL 50 mg ER24 Tablet PO SCH (07:59)
[2016-07-22] MEDS: Insulin LISPRO 300 Unit/3 mL Inj SUBQ SCH ×4 (08:00→20:24)
[2016-07-22] MEDS ORDERED: Azithromycin Inj 500 MG in Dextrose 5% w/Vial Mate 250 ML IV SCH (08:30)
[2016-07-22] MEDS: PrednisoLONE 1 mg/mL 118 mL Solution PO SCH (09:15)
--- NOTE | 2016-07-22 12:57 | NUR ---
Social Work: Initial Assessment D: EMR reviewed. Pt is a 65 y/o male admitted for MARTHA, CHF per H&P. SW met with pt at bedside to conduct initial assessment. Pt was alert and oriented x3. SW explained role and wrote phone number on white board in room. Pt gave verbal consent to contact friend, Tu Colón ([phone]) for discharge planning. Pt's insurance is Medicare and [facility] Supplemental. Pt states he does not have a [facility] caregiver. Pt's PCP is Ozzy Lowry MD. Pt has no hx of HH. Pt has hx at [facility]. Pt does not have LTC insurance or VA benefits. Pt is independent with ADLs. Pt owns/uses a CPAP machine. Pt owns a FWW, wheelchair, and crutches but does not use this equipment at this time. Pt does not own or use any other DME. Pt drives. Pt is independent at baseline. Pt lives at alone in a single-story home with 4 steps to enter in [place]. Pt's friend Tu Colón will provide transportation via POV when pt is medically stable. SW does not anticipate any discharge needs at this time but will continue to follow if needs arise. A: Pt who is independent at baseline. Pt's friend Tu Colón will provide transportation via POV when pt is medically stable. WILLIAN does not anticipate any discharge needs at this time but will continue to follow if needs arise. NAYELI Arzola Addendum: 07/22/16 at 1423 by KENTON ROQUE Amended: Links added.
[2016-07-22] MEDS: Diltiazem Inj 125 MG in Dextrose 5% 100 ML IV SCH (14:15)
--- NOTE | 2016-07-22 14:16 | PCM.PNMED ---
Subjective Date of Service Jul 22, 2016 Subjective The primary team had a brad discussion with Mr. Bui about compliance with medical recommendations and how following directions in regards to O2 supplementation would expedite his recovery and discharge. He expressed understanding and placed the nasal cannula in its proper position. Otherwise he states that his breathing has improved since admission, he remains slightly odd and very talkative with tangential longwinded answers to questioning. He reports that part of the reason for him seeking care so far from his residence in [place] is his desire to move back to the area, and refuses to consider establishing care with a provider closer to his current residence because he sees that as an impediment towards transitioning back here(despite the fact that he reports he purchased a large shipping crate to pack for moving 4 years ago). There were no significant overnight events beyond hypoxemic events due to non compliance with supplemental O2. Comprehensive ROS negative except as listed above. Exam Vital Signs Vital Sign - Last Date Time Temp Pulse Resp B/P Pulse Ox O2 Delivery O2 Flow Rate FiO2 07/22/16 12:29 113 119/81 92 Nasal Cannula 10.00 75 07/22/16 08:30 35.4 16 Intake and Output 07/21/16 07/21/16 07/22/16 Cumulative From/Thru 14:59 22:59 06:59 07/20/16 23:33 - 07/22/16 06:00 Intake Total 640 ml 250 ml 1165 ml Output Total 725 ml 325 ml 1525 ml Balance -85 ml -75 ml -360 ml Intake Oral 640 ml 250 ml 1090 ml IV Total 75 ml Output Urine Total 725 ml 325 ml 1525 ml # Voids 2 2 Exam Gen: A/O x3 somewhat anxious gentleman in mild acute distress secondary to SOB Neck: Large circumference neck with approximately 3 cm x 5 cm mass at the right base consistent with lipoma HEENT: PERRL, EOMI, no scleral icterus, no conjunctival pallor CV: Very distant heart sounds, irregularly irregular, no perceptible murmurs Resp: Lungs with mild bibasilar crackles, no wheezing rales or rhonchi Abd: Large protuberant belly,BS+ 4Q, no rebound masses or guarding Extr: Moderate BL LE edema, no cyanosis or clubbing Neuro: CN 2-12 grossly intact, no focal neurologic deficit Psych: Very tangential conversation, anxiety about course of care, appropriate IVs and Medications IV Fluids 125 ml NS delivered with IV meds Medications Reviewed: Medications were reviewed in detail Lab and Diagnostics Item Value Date Time Red Blood Count 5.22 mil/mm3 07/22/16299 Mean Corpuscular Volume 92.0 fL 07/22/16299 Mean Corpuscular Hemoglobin 29.7 pg 07/22/16299 Mean Corpuscular Hemoglobin Concent 32.3 % 07/22/16299 Red Cell Distribution Width 17.4 % H 07/22/16 030 Neutrophils (%) (Auto) 85.1 % H 07/22/16 030 Lymphocytes (%) (Auto) 10.1 % L 07/22/16299 Monocytes (%) (Auto) 4.3 % 07/22/16299 Eosinophils (%) (Auto) 0 % 07/22/16299 Basophils (%) (Auto) 0.1 % 07/22/16299 Estimat Glomerular Filtration Rate 76 mL/min 07/22/16299 Lactic Acid Level 2.1 mmol/L H 07/22/16 030 Calcium Level 8.5 mg/dL 07/22/16299 Phosphorus Level 4.7 mg/dL 07/22/16299 Magnesium Level 2.3 mg/dL 07/22/16 030 Total Bilirubin 2.3 mg/dL H 07/22/16 030 Aspartate Amino Transf (AST/SGOT) 638 U/L H 07/22/16 030 Alanine Aminotransferase (ALT/SGPT) 1069 U/L H 07/22/16 030 Alkaline Phosphatase 107 U/L 07/22/16 030 Total Protein 6.8 g/dL 07/22/16 030 Albumin 3.6 g/dL 07/22/16 030 Procalcitonin 0.90 ng/mL H 07/22/16 030 Result Diagram: 07/22/1629907/22/16299 Microbiology Blood cultures no growth after 24 hours X-Rays, CTs and MRIs X-RAY CHEST ONE VIEW, PORTABLE IMPRESSION: Cardiomegaly and interstitial prominence. No definite acute cardiopulmonary process. Dictated by: Justice MARTINEZ Interpreted: Catalina Maxwell MD on 07/21/2016 at 9:09 Transcribed by: WILSON on 07/21/2016 at 9:09 Approved by: Catalina Maxwell M.D. on 07/21/2016 at 10:14 . Additional Diagnostics PROCEDURE: US ABDOMEN, LIMITED IMPRESSION: 1. No ascites. 2. Probable chronic liver and kidney disease. No hydronephrosis of the kidneys. Dictated by: Justice Gregory RRA Interpreted: Kevin Kearney MD on 07/21/2016 at 14 :40 Transcribed by: JACKY on 07/21/2016 at 14:42 Approved by: Kevin Kearney M.D. on 07/21/2016 at 15:10 . Assessment & Plan 65-year-old male with past medical history remarkable for high output/ tachycardia associated cardiomyopathy, chronic systolic heart failure, and atrial fibrillation presents with 1 week of worsening shortness of breath. Patient remains in Afib Aflutter with rates in the 110-120 range, will have him work with PT to establish his exertional rate. atrial fibrillation with rapid ventricular response, POA, acute on chronic. Active - Records indicate the patient was last seen by cardiology in May 2016 with plans for possible cardioversion in the future, and switched from carvedilol to metoprolol XL with possible future induction of diltiazem with improved ejection fraction - ECG shows A. fib with RVR - Patient given diltiazem loading dose 10mg and continued on diltiazem drip from ED - Prior anticoagulation adherence before admission is questionable given overall non compliance and reported half dosing at best, will withhold anti- arrhythmics to forestall conversion until anti-coagulation is more assured - Complete echo ordered, official report pending, per Diet Consultant EF 20-25% - Continue outpatient Apixaban at standard dosing, monitoring for lower GI bleed per patient report with full regular dosing - Continue outpatient metoprolol XL 50mg daily - Optimize electrolytes, monitor with daily BMP - Cardiology consultation Acute on chronic hypoxemic respiratory failure, POA, acute on chronic. Active - Patient with desaturation as low as 70s without supplemental O2 - Patient only intermittently compliant with O2 supplementation, thus frequent hypoxemic events - Likely secondary to CHF exacerbation - Diuresis and cardiac management as outlined below Tachycardia induced cardiomyopathy, POA, chronic. Active - Echocardiogram from 2014 shows EF of 40-45%, repeat ECHO official results pending - Continue outpatient metoprolol XL 50 mg daily - Continue outpatient digoxin 0.0625mg(Dig level undetectable) - Patient given diltiazem loading dose 10mg and continued on diltiazem drip from ED Acute exacerbation of Chronic systolic heart failure, POA, acute on chronic. Active - Patient appears hypervolemic on exam, and elevated Pro-BNP 3061 - Echocardiogram from 2014 shows EF of 40-45% - Continue outpatient metoprolol XL 50 mg daily - Continue outpatient losartan 25 mg daily - Patient received furosemide 80 mg IV push once in the ED - Lasix 40mg IV at twice daily at 08:30 and 14:30 Leukocytosis, POA, acute. Active - Perhaps secondary to elevated uric acid - Patient is SIRS positive with WBC 13.1, heart rate 163, respiratory rate 30 upon admission - Elevated Lactic Acid 2.5 with elevated procalcitonin of 0.48 consistent with possible infection - No definitive source of infection is identified and patient does not appear acutely infectious at this time - Patient is hypervolemic with CHF described above avoid IV fluids - Acute hepatitis panel ordered - Blood cultures ordered - CXR ordered and pending - Abdominal US negative for ascites, indicative of perhaps liver or kidney disease - ID consulted and we appreciate their input Acute liver failure with elevated indirect bilirubin and transaminase, POA, chronicity uncertain. Active - AST 1279 and ALT 922 with indirect bilirubin 2.4 on admission, now improving - Meld 20 indicative of 6% [facility] indicative of benefit from steroids - Prednisolone 40 mg daily - Patient denies risky sexual activity or illicit drug use - Acute hepatitis negative - Potential congestive hepatopathy - Abdominal US as above Hyperglycemia, POA, chronic. Active - A1c 5.8 - Correction scale lispro ordered - Constant carb diet Subclinical Hypothyroidism, POA, chronic. Active - Per [facility] records which also indicated an TSH of 0.811 in June 2012 - TSH within normal limits - Not currently on outpatient medication Hyperlipidemia, POA, chronic. Active - Per [facility] records which also indicated LDL 107, HDL 39, total cholesterol 177 - Not currently on outpatient medication - Withholding Statin due to liver failure History of Moderate aortic arch aneurysm, POA, chronic. Active - Complete echo ordered - Monitor History of lower GI bleed, POA, chronicity uncertain. Active - [facility] records indicate possible diverticulosis - Patient indicates bright blood on toilet tissue when taking full dose of Apixaban - Encourage patient to obtain colonoscopy in near future - Hemoglobin is 15.5 - Monitor with initiation of full dose Apixaban DVT prophylaxis: Continue Apixaban GI prophylaxis: Not indicated CODE STATUS full Disposition: Patient will likely be able to DC home in 1-2 days depending upon control of his rapid Afib. Pain Evaluation: Adequate Pain Control GI Prophylaxis: Not indicated VTE Prophylaxis: Other (Continue home Eliquis) Resuscitation Status: CPR: Attempt Resuscitation Attending Statement The patient was seen and examined together with Dr. Thompson on 07/22/2016 and I agree with the history, exam and plan as outlined in the note above. . Guillermo Thompson DO Jul 22, 2016 14:16 Joel Jacobson MD Jul 23, 2016 17:46
--- NOTE | 2016-07-22 17:11 | CONS ---
[address] [address] CONSULTATION REPORT PATIENT: KESHA PANIAGUA : 1950 MR#: [id number] ADMIT: 07/21/2016 JOB ID: [id number] DATE OF SERVICE: 07/22/2016 CHIEF COMPLAINT: I was asked by the hospital team to consult on this patient given heart failure and atrial fibrillation with rapid ventricular response. HISTORY OF PRESENT ILLNESS: The patient is a 65-year-old man with a history of CHF and atrial fibrillation. He has a mild cardiomyopathy which has been attributed to a tachycardia mediated etiology. He is followed by Dr. Lyman in Cardiology and he last saw them in May of this year. At that time, he was only taking 25 mg a day, 25 mg b.i.d. of metoprolol although apparently he was supposed to be taking more. He was only taking half doses of Eliquis. He was being considered for cardioversion, but I think there was concern about the Eliquis. He says that he lives in the [facility] and spends a great deal of time driving back and forth, but at about the time of Dr. Lyman's visit with him, he developed right ankle pain. Apparently, he had a significant workup including ruling out DVT, MRIs, consultation, and for the patient no clear consensus was achieved in terms of the cause of his pain. He then developed some left toe pain. He thought maybe he had gout. Over the last week or so, he has been noticing that he has orthopnea and PND, increased lower extremity edema and has now gotten to the point where he could not walk without shortness of breath. He denies chest pain, chest pressure. When he is at rest sitting in bed, he feels fine. He did call Dr. Lyman and was told to increase his Lasix but told them that he might have to go to the ED. He ultimately did go to the ED and was found to be in atrial fibrillation with rapid ventricular response. He is now on a diltiazem drip with heart rates in the low 100s. He appears comfortable. He has received at least one IV dose of Lasix and he is scheduled for another later this evening. He says he does not feel that his lower extremity has yet improved, although he tells me that his heart rate only recently increased to this high. He said his heart rates have always been reasonably controlled, and he has been compliant with taking the medications at the doses that he felt he should be taking. PAST MEDICAL HISTORY/PROBLEM LIST: 1. History of atrial fibrillation. 2. Cardiomyopathy, possibly tachycardia mediated. 3. COPD. 4. Diabetes. 5. Hypothyroidism. 6. Hypertension. HOME MEDICATIONS: 1. Digoxin half tablet every day. The patient is not sure if he is taking this. 2. Eliquis only taking half a tablet by mouth two times a day. Not therapeutic. 3. Furosemide 40 mg b.i.d. 4. Losartan 25 mg daily. 5. Metoprolol succinate. He is supposed to be taking 50 2 times a day and I think he is actually taking only 25. 6. Potassium chloride 10 mEq daily. ALLERGIES: No known drug allergies. SOCIAL HISTORY: Quit alcohol in 2007. Sometimes smokes marijuana. Quit tobacco in 2007. FAMILY HISTORY: No early coronary disease. REVIEW OF SYSTEMS: Overall health: No fevers, night sweats or weight loss. GI: No problems with ulcers or blood in his stool although he says he has hemorrhoidal bleeding which is concerning and part of the reason why he cut his Eliquis dose. : No dysuria, hematuria. Pulmonary: Increased shortness of breath. He has history of COPD. Cardiac: As per HPI. Musculoskeletal: Problems with right ankle pain and left toe pain, possibly gout, per patient. Endocrine: No heat or cold intolerance. Positive for hypothyroidism and diabetes. Heme: No easy bruising or bleeding. Derm: No new rashes or skin breakdown. Neuro: No chronic headaches. ENT: No difficulty swallowing, no sore throat. Ophtho: Vision no acute changes. All other review of systems of a 12 point review of systems negative. PHYSICAL EXAMINATION: Blood pressure 133/60, heart rate 109, he is afebrile. Sats are 92% on 10 L. General: In no acute distress. Speaking in full sentences without apparent shortness of breath. Head and neck exam: Normocephalic, atraumatic. Neck: I do not appreciate carotid bruits. Heart exam: Distant sounds. Irregular. Lungs: Occasional crackles appreciated at the bases, no wheezes appreciated. Abdomen: Soft, nondistended, nontender. Extremities with edema. Difficult to appreciate distal pulses. Skin: Without obvious breakdown appreciated. Neuro: Alert and interactive. Gait is not tested. Psych: Appropriate mood and affect. ENT: Mucous membranes are moist. Ophtho: Vision is grossly intact. CURRENT MEDICATIONS: Include: 1. Diltiazem drip. 2. Colchicine. 3. Eliquis 5 mg b.i.d. 4. Losartan 25 daily. 5. Furosemide 40 IV push b.i.d. at this time. 6. Metoprolol succinate 50 mg daily. He did get a dose of that today. OTHER STUDIES: He has an echocardiogram from October 30, 2014 which shows EF of 40-45%. Left atrium was severely dilated. Right atrium was severely dilated. He had an ASD closure device which was visualized. Mild mitral regurgitation. No significant valvular disease. LABORATORIES: Show a white count 11.3, H and H 15.5 and 48, platelets of 270,000. Chemistry shows sodium 137, potassium 4.3, chloride and bicarb 97 and 20 respectively. BUN and creatinine 4 and 1.04. Total bilirubin elevated at 2.3. AST and ALT also elevated. Procalcitonin elevated. IMPRESSION: The patient comes in with increased dyspnea on exertion, symptoms consistent with heart failure. His heart rates are elevated right now. He said he has been taking a somewhat lower dose than recommended of metoprolol, but he tells me heart rates were well controlled until recently. He has edema. He has elevated LFTs which may be related to hepatic congestion related to heart failure. PLAN: 1. I would continue with the IV rate control for now, mostly to get his rate under control. I believe he is getting a dose of metoprolol which is fine as long as he is absorbing this. 2. I would continue with IV diuresis right now. We will try to keep a tally of the ins and outs, although that has been somewhat difficult. We can certainly follow him for symptoms and some of the edema and see if this improves with his continued diuresis. 3. Once he has achieved a reasonable diagnosis, we can certainly transition him back to oral medications. Per review of his MAR, it does appear that he is getting an oral dose of metoprolol. Since the patient has not been fully compliant with anticoagulants and taking only half doses, he was therapeutic and he is not a good candidate at this juncture for cardioversion. I spent 45 minutes reviewing this patient's records and old studies, speaking with him and examining him and discussing my recommendations with the hospitalists DONNA
[2016-07-23] VITALS (13 sets, daily range): BP systolic 96–134; BP diastolic 64–105; PULSE 90–122; RESP 16–22; O2SAT 90–97
--- NOTE | 2016-07-23 04:53 | NUR ---
Cardiac/Resp Patient rested in bed this shift, up in room walking around and into bathroom, requested Ambien for sleep, notified and Melatonin ordered for sleep but patient refused med, on BiPap this shift for a few hours, O2 6L NC when not on Bipap. On Diltiazem gtt at 10mg/hr this shift and HR 100-110's, BP 100-110's/50-70's, denied any pain this shift, denied chest pain, patient stated he is concerned about 3kg wt gain since admit, no distress noted at this time, will continue to monitor. Addendum: 07/23/16 at 5784 by TYE SUBRAMANIAN RN Amended: Links added.
[2016-07-23] MEDS: Diltiazem Inj 125 MG in Dextrose 5% 100 ML IV SCH ×2 (05:09→13:28)
[2016-07-23] MEDS: Insulin LISPRO 300 Unit/3 mL Inj SUBQ SCH ×4 (08:00→20:45)
[2016-07-23 08:02] LABS: BASOPHILS % (AUTO) 0.1 % (0-3); EOSINOPHILS % (AUTO) 0.4 % (0-5); MONOCYTES % (AUTO) 9.8 % (4-12); Mean Corpuscular Hemoglobin 29.7 pg (27.0-35.0); NEUTROPHILS % (AUTO) 80.8 % (40-74); Platelet Count 277 bil/L (150-400)
[2016-07-23 08:26] LABS: Magnesium 2.5 mg/dL (1.6-2.6); Phosphorus 4.2 mg/dL (2.5-4.9)
[2016-07-23] MEDS: PrednisoLONE 1 mg/mL 118 mL Solution PO SCH ×2 (09:00→09:59)
[2016-07-23] MEDS: MeTOProlol XL 50 mg ER24 Tablet PO SCH (09:12)
[2016-07-23] MEDS: Furosemide 10 mg/mL 4 mL Inj IVPUSH SCH ×2 (09:27→15:26)
--- NOTE | 2016-07-23 10:11 | NUR ---
Non compliant with treatment/ Medications: Patient refused AM glucose check stating that he only checks his blood sugar once or twice a month and "they are always fine". Pt angry about monitoring and states he is being tied down. Educated pt on Diltiazem gtt and need for continuous monitoring. Pt continues to be agitated/angry and states that monitor readings are not correct anyway. Pt refused Prednisolone solution 40mg PO despite medication education by RN and by Pharmacist. MD notified. VSS. Oxygen titrated down from 6L NC to 4L NC. SpO2 remains low 90's. Pt continues on telemetry for monitoring and frequent rounding in place.
--- NOTE | 2016-07-23 10:12 | DRSVH ---
PROCEDURE: X-RAY CHEST ONE VIEW, PORTABLE ([id number]) INDICATIONS: FU CHF v PNA TECHNIQUE: One view of the chest was acquired. COMPARISON: [facility] [place], [place], CR, CHEST 2VW, 12/12/2009, 14:42. [facility], CR, XR CHEST 1VW (PORTABLE), 07/20/2016, 23:48. FINDINGS: Surgical changes and devices: None. Lungs and pleura: Trace effusions. No pneumothorax. No focal lung consolidation. Mild bilateral in terstitial infiltrates compatible with mild congestive heart failure. Mediastinum: Mediastinal contours appear normal. Heart size is enlarged. Aortic atherosclerosis. Bones and chest wall: No suspicious bony lesions. Overlying soft tissues appear unremarkable. IMPRESSION: Cardiomegaly and mild congestive heart failure. Dictated by: Justice Gregory RRA Interpreted: India Kraus MD on 07/23/2016 at 9:35 Approved by: India Kraus M.D. on 07/23/2016 at 10:10
--- NOTE | 2016-07-23 13:26 | PCM.PNMED ---
Subjective Date of Service Jul 23, 2016 Subjective Mr. Bui continues to complain of SOB, which has improved slightly, and LE edema which he says has gotten worse. He was counseled that his habit of sitting upright with his legs hanging down all day is not conducive to resolution of his LE edema, and furthermore he needs to urinate in the appropriate receptacle in order to titrate his diuretic. He expressed a willingness to comply with these orders in exchange for a mobile telemetry unit that would allow him move freedom of movement. He did experience a 14 beat run of Vtach in the afternoon, otherwise no significant overnight events other than his usual curmudgeonly behavior. Comprehensive ROS negative except as listed above. Exam Vital Signs Vital Sign - Last Date Time Temp Pulse Resp B/P Pulse Ox O2 Delivery O2 Flow Rate FiO2 07/23/16 11:59 98 07/23/16 11:42 36.9 20 134/96 94 Nasal Cannula 6.00 07/23/16 02:10 50 Intake and Output 07/22/16 07/22/16 07/23/16 Cumulative From/Thru 15:00 23:00 07:00 07/20/16 23:33 - 07/23/16 06:46 Intake Total 1530 ml 1145 ml 3840 ml Output Total 2350 ml 325 ml 4200 ml Balance -820 ml 820 ml -360 ml Intake Oral 1530 ml 1020 ml 3640 ml IV Total 125 ml 200 ml Output Urine Total 2350 ml 325 ml 4200 ml # Voids 1 3 # Bowel Movements 1 1 Exam Gen: A/O x3, very talkative and tangential gentleman in NAD Neck: Large circumference neck, no JVD, Full ROM HEENT: PERRL, EOMI, no scleral icterus, no conjunctival pallor CV: Very distant heart sounds, irregularly irregular, no perceptible murmurs Resp: Lungs with mild bibasilar crackles, no wheezing rales or rhonchi Abd: Large protuberant belly,BS+ 4Q, no rebound masses or guarding Extr: Moderate BL LE edema, no cyanosis or clubbing Neuro: CN 2-12 grossly intact, no focal neurologic deficit Psych: Very tangential conversation, anxiety about course of care, appropriate IVs and Medications IV Fluids 125 ml NS delivered with IV medications Medications Reviewed: Medications were reviewed in detail Lab and Diagnostics Item Value Date Time Red Blood Count 5.19 mil/mm3 07/23/16733 Mean Corpuscular Volume 94.0 fL 07/23/16733 Mean Corpuscular Hemoglobin 29.7 pg 07/23/16733 Mean Corpuscular Hemoglobin Concent 31.6 % L 07/23/16733 Red Cell Distribution Width 17.6 % H 07/23/16 07 Neutrophils (%) (Auto) 80.8 % H 07/23/16 07 Lymphocytes (%) (Auto) 8.7 % L 07/23/16 07 Monocytes (%) (Auto) 9.8 % 07/23/16733 Eosinophils (%) (Auto) 0.4 % 07/23/16733 Basophils (%) (Auto) 0.1 % 07/23/16733 Estimat Glomerular Filtration Rate 97 mL/min 07/23/16733 Lactic Acid Level 2.1 mmol/L H 07/22/16 0300 Calcium Level 9.1 mg/dL 07/23/16733 Phosphorus Level 4.2 mg/dL 07/23/16 0734 Magnesium Level 2.5 mg/dL 07/23/16 0734 Total Bilirubin 1.6 mg/dL H 07/23/16 07 Aspartate Amino Transf (AST/SGOT) 195 U/L H 07/23/16 07 Alanine Aminotransferase (ALT/SGPT) 684 U/L H 07/23/16 07 Alkaline Phosphatase 112 U/L 07/23/16 0734 Total Protein 6.5 g/dL 07/23/16 07 Albumin 3.7 g/dL 07/23/16 07 Procalcitonin 0.57 ng/mL H 07/23/16 07 Result Diagram: 07/23/16 0707/23/16733 Microbiology Blood cultures no growth after 24 hours X-Rays, CTs and MRIs X-RAY CHEST ONE VIEW, PORTABLE IMPRESSION: Cardiomegaly and interstitial prominence. No definite acute cardiopulmonary process. Dictated by: Justice MARTINEZ Interpreted: Catalina Maxwell MD on 07/21/2016 at 9:09 Transcribed by: WILSON on 07/21/2016 at 9:09 Approved by: Catalina Maxwell M.D. on 07/21/2016 at 10:14 . Additional Diagnostics PROCEDURE: US ABDOMEN, LIMITED IMPRESSION: 1. No ascites. 2. Probable chronic liver and kidney disease. No hydronephrosis of the kidneys. Dictated by: Justice Gregory RRA Interpreted: Kevin Kearney MD on 07/21/2016 at 14 :40 Transcribed by: JACKY on 07/21/2016 at 14:42 Approved by: Kevin Kearney M.D. on 07/21/2016 at 15:10 . Assessment & Plan 65-year-old male with past medical history remarkable for high output/ tachycardia associated cardiomyopathy, chronic systolic heart failure, and atrial fibrillation presents with 1 week of worsening shortness of breath. Patient remains in Afib Aflutter with rates in the 90-110 range, will have him work with PT to establish his exertional rate. Patient with 14 beat run of Vtach. We are increasing his dosage of beta jonnie and Lasix to see if this improves his breathing and heart rate. atrial fibrillation with rapid ventricular response, POA, acute on chronic. Active - Records indicate the patient was last seen by cardiology in May 2016 with plans for possible cardioversion in the future, and switched from carvedilol to metoprolol XL with possible future induction of diltiazem with improved ejection fraction - Changing to Metoprolol tartrate 50 mg BID due to nocturnal tachycardia and increased beta blockage - ECG shows A. fib with RVR - Patient given diltiazem loading dose 10mg and continued on diltiazem drip from ED - Prior anticoagulation adherence before admission is questionable given overall non compliance and reported half dosing at best, will withhold anti- arrhythmics to forestall conversion until anti-coagulation is more assured - Complete echo reveals decreased EF of 25% down from 45% in 2015 - Continue outpatient Apixaban at standard dosing, monitoring for lower GI bleed per patient report with full regular dosing - Optimize electrolytes, monitor with daily BMP - Cardiology consulted and we appreciate their expertise Acute on chronic hypoxemic respiratory failure, POA, acute on chronic. Active - Patient with desaturation as low as 70s without supplemental O2 - Patient initially only intermittently compliant with O2 supplementation, thus frequent hypoxemic events, now more compliant with less desaturation - Likely secondary to CHF exacerbation - Diuresis and cardiac management as outlined below Tachycardia induced cardiomyopathy, POA, chronic. Active - Echocardiogram from 2014 shows EF of 40-45%, repeat ECHO official results pending - Continue outpatient digoxin 0.0625mg(Dig level undetectable) - Patient given diltiazem loading dose 10mg and continued on diltiazem drip from ED - Metoprolol as above Acute exacerbation of Chronic systolic heart failure, POA, acute on chronic. Active - Patient appears hypervolemic on exam, and elevated Pro-BNP 3061 - Echocardiogram from 2014 shows EF of 40-45% - Continue outpatient losartan 25 mg daily - Patient received furosemide 80 mg IV push once in the ED - Lasix 60mg IV at twice daily at 08:30 and 14:30 Leukocytosis, POA, acute. Active - Perhaps secondary to elevated uric acid - Patient is SIRS positive with WBC 13.1, heart rate 163, respiratory rate 30 upon admission - Elevated Lactic Acid 2.5 with elevated procalcitonin of 0.48 consistent with possible infection - No definitive source of infection is identified and patient does not appear acutely infectious at this time - Patient is hypervolemic with CHF described above avoid IV fluids - Acute hepatitis panel ordered - Blood cultures ordered - CXR ordered and pending - Abdominal US negative for ascites, indicative of perhaps liver or kidney disease - ID consulted and we appreciate their input Acute liver failure with elevated indirect bilirubin and transaminase, POA, chronicity uncertain. Improving - AST 1279 and ALT 922 with indirect bilirubin 2.4 on admission, now improving - Meld 20 indicative of 6% 3 month mortality, [facility] discriminate function 53 indicative of benefit from steroids - Patient denies risky sexual activity or illicit drug use - Acute hepatitis negative - Potential congestive hepatopathy - Abdominal US as above Hyperglycemia, POA, chronic. Active - A1c 5.8 - Correction scale lispro ordered - Constant carb diet Subclinical Hypothyroidism, POA, chronic. Active - Per [facility] records which also indicated an TSH of 0.811 in June 2012 - TSH within normal limits - Not currently on outpatient medication Hyperlipidemia, POA, chronic. Active - Per [facility] records which also indicated LDL 107, HDL 39, total cholesterol 177 - Recheck this admission - Not currently on outpatient medication - Withholding Statin due to liver failure History of Moderate aortic arch aneurysm, POA, chronic. Active - Complete echo ordered - Monitor History of lower GI bleed, POA, chronicity uncertain. Active - [facility] records indicate possible diverticulosis - Patient indicates bright blood on toilet tissue when taking full dose of Apixaban - Encourage patient to obtain colonoscopy in near future - Hemoglobin is 15.5 - Monitor with initiation of full dose Apixaban DVT prophylaxis: Continue Apixaban GI prophylaxis: Not indicated CODE STATUS full Disposition: Patient will likely be able to DC home in 1-2 days depending upon control of his rapid Afib. Pain Evaluation: Adequate Pain Control GI Prophylaxis: Not indicated VTE Prophylaxis: Other (Continue home Eliquis) Resuscitation Status: CPR: Attempt Resuscitation Attending Statement The patient was seen and examined together with Dr. Thompson on 07/23/2016 and I agree with the history, exam and plan as outlined in the note above. . Guillermo Thompson DO Jul 23, 2016 13:26 Joel Jacobson MD Jul 23, 2016 17:47
--- NOTE | 2016-07-23 14:21 | NUR ---
spiritual care: routine/staff lengthy conversational visit. pt began conversation with his account of a longtime medical coma at [facility] in 2007. He described his sense of general mistrustfulness and feeling misunderstood as he shared various details about care and procedures (feeling tied down by wires, dependence on staff for bathroom help, call light time, food temperature) pt reflected on his personal history kailey in terms of his own resourcefulness and supportive family (including past local leaders) pt shared some sources of longtime grief and personal challenge, as well as his sense of managing through current medical condition. He described managing diabetes with minimal effort though he knows others who "make a big deal about it" he described his experiences with "afib--all the time. I'm used to it." Pt engaged easily on many themes and seemed to appreciate supportive listening. he articulated his beliefs and values from family's islam background. available to follow
--- NOTE | 2016-07-23 17:39 | NUR ---
Diltiazem gtt /Tele/ Oxygen/urine output: P: rec'd order for patient to be off tele for shower I: Tele: Afib 90-115. Diltiazem 15mg/hr gtt, @ 1109 had 13 beats of VTach (pt asymptomatic) and is non-compliant with keeping oxygen on. SpO2: at rest is mid 80's and low 90s on 4L NC. Patient was educated on the need for oxygen. Pt states he can just concentrate on breathing and oxygen will come up. Dr Thompson notified of RN concerns. E: Patient was offered and bed bath and refused insisting he needed a shower. Pt signed a waiver indicating he was aware of possible risks if tele and oxygenation monitors were discontinued during shower (waiver in chart). Pt is also non-compliant with urinal use and accurate urine output was difficult to obtain. Diltiazem was titrated down to 10mg/hr. Tele: Afib 80-90s. SpO2: low 90s on 4L NC and needs frequent reminders to keep oxygen on.
--- NOTE | 2016-07-23 18:12 | NUR ---
spiritual care: follow up pt shared of afternoon's events including that he is feeling better after his shower. Reflections on illness and changes in his life since serious medical events. prayer
[2016-07-24] VITALS (11 sets, daily range): BP systolic 93–173; BP diastolic 63–139; PULSE 76–134; RESP 16–22; O2SAT 89–93
--- NOTE | 2016-07-24 04:05 | NUR ---
Cardiac/Resp Patient titrated off Cardizem gtt about 2100 and HR 95-103 A-Fib on PO Metoprolol now, refused to use home CPAP and BiPaP and O2 at times, patient aware of sats 87% but still refused to have O2 on at times, currently wearing NC with O2 at 4L this AM, sats 92%, unable to get good nights sleep, pleasant and cooperative this shift, no distress noted, uneventful shift, will continue to monitor. Addendum: 07/24/16 at 0411 by TYE SUBRAMANIAN RN Amended: Links added.
[2016-07-24] MEDS: Insulin LISPRO 300 Unit/3 mL Inj SUBQ SCH ×4 (08:00→22:00)
[2016-07-24 08:04] LABS: INR 1.31 ratio
[2016-07-24 08:04] LABS: BASOPHILS % (AUTO) 0.2 % (0-3); EOSINOPHILS % (AUTO) 1.1 % (0-5); MONOCYTES % (AUTO) 11.8 % (4-12); Mean Corpuscular Hemoglobin 29.7 pg (27.0-35.0); Mean Corpuscular Volume 94.2 fL (81-100); Platelet Count 241 bil/L (150-400)
--- NOTE | 2016-07-24 08:25 | NUR ---
Respiratory BiPAP on S/B, Pt refuses to wear.
[2016-07-24 08:27] LABS: Magnesium 2.6 mg/dL (1.6-2.6)
[2016-07-24] MEDS: Furosemide 10 mg/mL 4 mL Inj IVPUSH SCH ×2 (09:03→21:04)
--- NOTE | 2016-07-24 10:02 | PCM.PNMED ---
Subjective Date of Service Jul 24, 2016 Subjective Mr. Bui remains reasonably pleasantly tangential curmudgeonly self today. He is frustrated with his general lack of progress and continued edema. He is pleased that his various "leashes" have been removed as dilt drip and wired tele have been DC'd. Otherwise he has no new complaints beyond what he perceives as a deficiency in general hospitality. No new chest pain, unchanged SOB. No overnight events outside his normal behavior which is highly demanding of nursing care. Comprehensive ROS negative except as outlined above. Exam Vital Signs Vital Sign - Last Date Time Temp Pulse Resp B/P Pulse Ox O2 Delivery O2 Flow Rate FiO2 07/24/16 08:56 35.3 120 16 108/77 92 Room Air 07/24/16 00:29 4.00 07/23/16 02:10 50 Intake and Output 07/23/16 07/23/16 07/24/16 Cumulative From/Thru 15:00 23:00 07:00 07/20/16 23:33 - 07/24/16 05:28 Intake Total 1200 ml 350 ml 5390 ml Output Total 300 ml 300 ml 4800 ml Balance 900 ml 50 ml 590 ml Intake Oral 1040 ml 350 ml 5030 ml IV Total 160 ml 360 ml Output Urine Total 300 ml 300 ml 4800 ml # Voids 3 1 7 # Bowel Movements 1 1 3 Exam Gen: A/O x3, very talkative and tangential gentleman in NAD Neck: Large circumference neck, no JVD, Full ROM HEENT: PERRL, EOMI, no scleral icterus, no conjunctival pallor CV: Very distant heart sounds, irregularly irregular, no perceptible murmurs Resp: Lungs with mild bibasilar crackles, no wheezing rales or rhonchi Abd: Large protuberant belly,BS+ 4Q, no rebound masses or guarding Extr: Moderate BL LE edema unchanged from prior exam, no cyanosis or clubbing Neuro: CN 2-12 grossly intact, no focal neurologic deficit Psych: Very tangential conversation, anxiety about course of care, appropriate IVs and Medications Medications Reviewed: Medications were reviewed in detail Lab and Diagnostics Item Value Date Time Red Blood Count 5.32 mil/mm3 07/24/16 0725 Mean Corpuscular Volume 94.2 fL 07/24/16 0725 Mean Corpuscular Hemoglobin 29.7 pg 07/24/16 0725 Mean Corpuscular Hemoglobin Concent 31.5 % L 07/24/16 0725 Red Cell Distribution Width 17.8 % H 07/24/16 0725 Neutrophils (%) (Auto) 74.0 % 07/24/16 0725 Lymphocytes (%) (Auto) 12.5 % L 07/24/16 0725 Monocytes (%) (Auto) 11.8 % 07/24/16 07 Eosinophils (%) (Auto) 1.1 % 07/24/16 07 Basophils (%) (Auto) 0.2 % 07/24/16 07 Estimat Glomerular Filtration Rate 77 mL/min 07/24/16 0725 Calcium Level 9.0 mg/dL 07/24/16 0725 Magnesium Level 2.6 mg/dL 07/24/16 0725 Phosphorus Level 5.0 mg/dL H 07/24/16 0725 Total Bilirubin 1.5 mg/dL H 07/24/16 0725 Aspartate Amino Transf (AST/SGOT) 119 U/L H 07/24/16 0725 Alanine Aminotransferase (ALT/SGPT) 521 U/L H 07/24/16 0725 Alkaline Phosphatase 108 U/L 07/24/16 0725 Total Protein 6.2 g/dL L 07/24/16 0725 Albumin 3.7 g/dL 07/24/16 0725 Triglycerides Level 145 mg/dL 07/24/16 0725 Cholesterol Level 141 mg/dL 07/24/16 0725 LDL Cholesterol, Calculated 94.000 mg/dL 07/24/16 0725 VLDL Cholesterol 29.000 mg/dL 07/24/16 0725 HDL Cholesterol 18 mg/dL 07/24/16 0725 Cholesterol/HDL Ratio 7.83 H 07/24/16 0725 Procalcitonin 0.41 ng/mL H 07/24/16 0725 Result Diagram: 07/24/16 0725 07/24/16 07 Microbiology Blood cultures no growth after 24 hours X-Rays, CTs and MRIs X-RAY CHEST ONE VIEW, PORTABLE IMPRESSION: Cardiomegaly and interstitial prominence. No definite acute cardiopulmonary process. Dictated by: Justice MARTINEZ Interpreted: Catalina Maxwell MD on 07/21/2016 at 9:09 Transcribed by: WILSON on 07/21/2016 at 9:09 Approved by: Caatlina Maxwell M.D. on 07/21/2016 at 10:14 . Additional Diagnostics PROCEDURE: US ABDOMEN, LIMITED IMPRESSION: 1. No ascites. 2. Probable chronic liver and kidney disease. No hydronephrosis of the kidneys. Dictated by: Justice Gregory RRA Interpreted: Kevin Kearney MD on 07/21/2016 at 14 :40 Transcribed by: JACKY on 07/21/2016 at 14:42 Approved by: Kevin Kearney M.D. on 07/21/2016 at 15:10 . Assessment & Plan 65-year-old male with past medical history remarkable for high output/ tachycardia associated cardiomyopathy, chronic systolic heart failure, and atrial fibrillation presents with 1 week of worsening shortness of breath. Patient remains in Afib Aflutter with rates in the 90-110 range, will have him work with PT to establish his exertional rate. Patient with 14 beat run of Vtach. We are increasing his dosage of beta jonnie and Lasix to see if this improves his breathing and heart rate. Nephrology has been consulted to determine possible etiologies of his poor urine output atrial fibrillation with rapid ventricular response, POA, acute on chronic. Active - Records indicate the patient was last seen by cardiology in May 2016 with plans for possible cardioversion in the future, and switched from carvedilol to metoprolol XL with possible future induction of diltiazem with improved ejection fraction - Changing to Metoprolol tartrate 100 mg BID due to nocturnal tachycardia and increased beta blockage - ECG shows A. fib with RVR - Patient given diltiazem loading dose 10mg and initially continued on diltiazem drip from ED - Prior anticoagulation adherence before admission is questionable given overall non compliance and reported half dosing at best, will withhold anti- arrhythmics to forestall conversion until anti-coagulation is more assured - Complete echo reveals decreased EF of 25% down from 45% in 2015 - Continue outpatient Apixaban at standard dosing, monitoring for lower GI bleed per patient report with full regular dosing - Optimize electrolytes, monitor with daily BMP - Cardiology consulted and we appreciate their expertise Acute on chronic hypoxemic respiratory failure, POA, acute on chronic. Active - Patient with desaturation as low as 70s without supplemental O2 - Patient initially only intermittently compliant with O2 supplementation, thus frequent hypoxemic events, now more compliant with less desaturation - Likely secondary to CHF exacerbation - Diuresis and cardiac management as outlined below Tachycardia induced cardiomyopathy, POA, chronic. Active - Echocardiogram from 2014 shows EF of 40-45%, repeat ECHO official results pending - Continue outpatient digoxin 0.0625mg(Dig level undetectable) - Patient given diltiazem loading dose 10mg and continued on diltiazem drip from ED - Metoprolol as above Acute exacerbation of Chronic systolic heart failure, POA, acute on chronic. Active - Patient appears hypervolemic on exam, and elevated Pro-BNP 3061 - Echocardiogram from 2014 shows EF of 40-45% - Continue outpatient losartan 25 mg daily - Patient received furosemide 80 mg IV push once in the ED - Lasix 60mg IV at twice daily at 08:30 and 14:30 - Nephrology consult to evaluate poor urine output in the face of diuretic therapy Leukocytosis, POA, acute. Active - Perhaps secondary to elevated uric acid - Patient is SIRS positive with WBC 13.1, heart rate 163, respiratory rate 30 upon admission - Elevated Lactic Acid 2.5 with elevated procalcitonin of 0.48 consistent with possible infection - No definitive source of infection is identified and patient does not appear acutely infectious at this time - Patient is hypervolemic with CHF described above avoid IV fluids - Acute hepatitis panel ordered - Blood cultures ordered - CXR ordered and pending - Abdominal US negative for ascites, indicative of perhaps liver or kidney disease - ID consulted and we appreciate their input Acute liver failure with elevated indirect bilirubin and transaminase, POA, chronicity uncertain. Improving - AST 1279 and ALT 922 with indirect bilirubin 2.4 on admission, now improving - Initial scoring: Meld 20 indicative of 6% 3 month mortality, [facility] indicative of benefit from steroids - Patient denies risky sexual activity or illicit drug use - Acute hepatitis negative - Potential congestive hepatopathy - Abdominal US as above Hyperglycemia, POA, chronic. Active - A1c 5.8 - Correction scale lispro ordered - Constant carb diet Subclinical Hypothyroidism, POA, chronic. Active - Per [facility] records which also indicated an TSH of 0.811 in June 2012 - TSH within normal limits - Not currently on outpatient medication Hyperlipidemia, POA, chronic. Active - Per [facility] records which also indicated LDL 107, HDL 39, total cholesterol 177 - Recheck this admission - Not currently on outpatient medication - Withholding Statin due to liver failure History of Moderate aortic arch aneurysm, POA, chronic. Active - Complete echo ordered - Monitor History of lower GI bleed, POA, chronicity uncertain. Active - [facility] records indicate possible diverticulosis - Patient indicates bright blood on toilet tissue when taking full dose of Apixaban - Encourage patient to obtain colonoscopy in near future - Hemoglobin is 15.5 - Monitor with initiation of full dose Apixaban Disposition: Patient will likely be able to DC home in 1-2 days depending upon control of his rapid Afib and effective diuresis. Pain Evaluation: Adequate Pain Control GI Prophylaxis: Not indicated VTE Prophylaxis: Other (Continue home Eliquis) Resuscitation Status: CPR: Attempt Resuscitation Attending Statement The patient was seen and examined together with Dr. Thompson on 07/24/2016 and I agree with the history, exam and plan as outlined in the note above. . Guillermo Thompson DO Jul 24, 2016 10:02 Joel Jacobson MD Jul 25, 2016 08:05
[2016-07-24] MEDS ORDERED: Furosemide 10 mg/mL 4 mL Inj IVPUSH ONE (11:00)
--- NOTE | 2016-07-24 12:39 | PCM.CHPMED ---
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 He presented to [facility] on 07/21/16 with one week of worsening shortness of breath. Also found to be in a. fib with RVR. Thus far in the hospitalization the patient has been treated for a. fib and CHF exacerbation. I&O measurements have been inaccurate up to this point as the patient has been noted to urinate in inappropriate receptacles. By his own report, the patient states that his swelling is about at it's worst. If at home he does not believe he would be able to fit into his pants and shoes. Complete history is somewhat difficult to obtain as the patient perseverates on his recent gout exacerbation. He had acute right ankle pain with exquisite tenderness and swelling. This episode occurred about 7 weeks ago. He went to the ED and saw foot specialists before finally getting colchicine and allopurinol. He reports a uric acid level of 9.6 at the time of diagnosis. Other history, briefly, is negative for kidney stones, known kidney dysfunction , urinary retention, dysuria, hematuria. He has never seen a steam shovelman before. The patient does report that despite a more robust dose of Lasix, his urine output is not as good as it has been in the past. His lack of response to the medication is concerning to him and the fluid collection is becoming uncomfortable in his legs. Review of Systems: Constitutional: Denies: Chills, Fever, Sweats Cardiovascular: Denies: Chest Pain, Irregular Heart Rate Respiratory: Denies: Cough, Shortness of Breath, Wheezing Gastrointestinal: Denies: Abdominal Pain, Diarrhea, Nausea, Vomiting Genitourinary: Reports: Decrease Urinary Output, Denies: Dysuria, Hematuria Neurological: Denies: Dizziness PMH Past Medical History Tachycardia-induced cardiomyopathy Diabetes mellitus Hypothyroidism Hyperlipidemia Atrial fibrillation Hypertension Chronic lower back pain Cataracts Seasonal allergies IBS Sleep apnea Restless leg syndrome Moderate aortic arch aneurysm Diverticulosis History of C. difficile infection Bedside Blood Glucose: 89 Surgical History Tracheostomy in 2007 Percutaneous closure of patent foramen ovale 2008 Right inguinal hernia repair Tonsillectomy Knee surgery Home Medications Per [employer] 05/26/16: Ambien 10 mg every day at bedtime Digoxin 125 mcg take 1/2 tablet by oral route every day Eliquis take 1/2 tablet by oral route 2 times every day furosemide (LASIX) 40 MG Two times daily. Hydrocodone 7.5 mg-acetaminophen 325 mg take 1 tablet by oral route every 8 hours as needed for pain Hyomax 0.125 mg four times a day Losartan 25 mg every day Metoprolol succinate ER 50 mg take 1/2 tablet by oral route 2 times every day Potassium chloride ER 10 mEq every day with food Allergies: Coded Allergies: No Known Allergies (Verified Allergy, Severe, POLLEN, 06/07/07) Family History Family History Patient is adopted Social History Occupation: retired [employer] Alcohol Use: Yes (quit in 2007)Hx Substance Use: Yes (marijuana only)Hx Tobacco Use: Yes (quit in 2007) Smoking Status: Former Smoker Years of Smokin Living Arrangement: Alone (In the [facility] area) Exam Vital Signs Vital Sign - Last Date Time Temp Pulse Resp B/P Pulse Ox O2 Delivery O2 Flow Rate FiO2 07/24/16 11:21 36.6 108 18 100/70 90 Room Air 07/24/16 00:29 4.00 07/23/16 02:10 50 Intake and Output 07/23/16 07/23/16 07/24/16 Cumulative From/Thru 15:00 23:00 07:00 07/20/16 23:33 - 07/24/16 05:28 Intake Total 1200 ml 350 ml 5390 ml Output Total 300 ml 300 ml 4800 ml Balance 900 ml 50 ml 590 ml Intake Oral 1040 ml 350 ml 5030 ml IV Total 160 ml 360 ml Output Urine Total 300 ml 300 ml 4800 ml # Voids 3 1 7 # Bowel Movements 1 1 3 General: Alert, Oriented X3, Cooperative, No Acute Distress Head: Normal Eyes: PERRLA, EOMI, Scleral Anicteric Chest & Lungs: Expiratory wheezes (heard throughout the lung hardy) Cardiovascular: No Murmurs/Rubs/Gallops, Other (Irregularly irregular) Pulses: Radial (present and equal bilaterally), Dorsalis Pedis (could not appreciate) Abdomen: Non-tender, Distended, Normoactive bowel tones Genitourinary: Kiser Absent Extremities: Edema (Severe pitting edema up to the level of the knee) Skin: Other (Skin tight of the lower extremities) Neurological: Grossly Neurologically Intact, Cranial Nerves 2-12 Intact, Normal Speech, Normal Gait Lab and Diagnostics Result Diagram: 07/24/1672407/24/16 07 Assessment & Plan Assessment Patient is a 65 year old male with a history of 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 He presented to [facility] on 07/21/16 with one week of worsening shortness of breath. Nephrology service is consulted due to oliguria and poor diursesis. Hospital day #4. 1) Oliguria. - Urine output believed to be low despite IV Lasix 60 mg BID. - Increase Lasix to 80 mg IV BID. - Add metolazone 5 mg once. Will re-evaluate for need of this tomorrow. - Inaccurate I&O - encourage patient to urinate in appropriate container so as to better monitor this. - Continue to monitor BMP for changes in creatinine - normal to date. 2) Peripheral edema. - Secondary to systolic dysfunction. - Diuretic changes as above in #1. - If potassium level drops below 4 mEq tomorrow, will add daily potassium supplementation. Check BMP. - Encourage patient to elevate the legs. Could consider use of compression stockings. - Daily standing weights. - Limit sodium in diet to 2 gm daily. 3) Systolic CHF secondary to tachycardia induced cardiomyopathy. - Continue losartan at this time. - Diuretics as above as patient appears to be decompensated. 4) Atrial fibrillation with RVR. - Defer to primary team for management. 5) Abnormal LFT's, improving. - Possibly secondary to congestive hepatopathy. - Continue to monitor CMP. Thank you for the consultation on this interesting patient. We will continue to follow along during this admission. Patient was seen and examined. Case discussed with a resident. Agreed with assessment and plan as above. Julia Montesinos MD Pg [phone] Problems: Pain Evaluation: Adequate Pain Control GI Prophylaxis: Not indicated VTE Prophylaxis Indicated: Meets Criteria for Anticoag Therapy VTE Prophylaxis: Other (Continue home Eliquis) Resuscitation Status: CPR: Attempt Resuscitation Jeanne Stuart DO Jul 24, 2016 12:19 Alec Tiwari MD Jul 24, 2016 17:00
--- NOTE | 2016-07-24 14:46 | NUR ---
ALFONSO Signed @ 0297AM
--- NOTE | 2016-07-24 16:17 | NUR ---
Spoke with patient at bedside and he has been working with [facility] in [place] and he requested her phone number so he could get in contact with her while he was here. Located phone number and gave to DATA MODELER to give to patient. Updated DATA MODELER
--- NOTE | 2016-07-24 16:54 | DRSVH ---
PROCEDURE: X-RAY CHEST ONE VIEW, PORTABLE ([id number]) INDICATIONS: chf TECHNIQUE: One view of the chest was acquired. COMPARISON: [facility], CR, XR CHEST 1VW (PORTABLE), 07/23/2016, 5:31. FINDINGS: Surgical changes and devices: None. Lungs and pleura: Trace effusions. No pneumothorax. No focal lung consolidation. Mild bilateral in terstitial infiltrates compatible with mild congestive heart failure. Mediastinum: Mediastinal contours appear normal. Heart size is enlarged. Aortic atherosclerosis. Bones and chest wall: No suspicious bony lesions. Overlying soft tissues appear unremarkable. IMPRESSION: Cardiomegaly and edema unchanged. Dictated by: Justice Gregory [facility] Interpreted: Kita Solo MD on 07/24/2016 at 9:04 Approved by: Kita Solo M.D. on 07/24/2016 at 16:52
--- NOTE | 2016-07-24 18:47 | NUR ---
Hypotension Pt's metoprolol dose increased from 50mg BID to 100mg BID after am medications today, one time 50mg dose placed for total of 100mg this am. Pt's IV lasix dose also increased. Pt reporting feeling lightheaded early afternoon, BP 93/63 at this time, notified, instructed to hold new metolazone and lasix dose placed, f/u BP 95/72 on L arm.
--- NOTE | 2016-07-24 18:58 | NUR ---
VS taken at 1644 on right arm 173/139 repeated VS at 1647 on the left arm 95/77. Pt. stated right arm was sensitive from constant BPs so attempted opposite arm with what seemed to be a false reading possibly due to activity. Pt wanted both readings charted. Addendum: 07/24/16 at 1901 by LOBITO ORELLANA CNA Amended: Links added.
[2016-07-24 22:03] LABS: APPEARANCE,URINE HAZY (CLEAR,HAZY); COLOR,URINE YELLOW (YELLOW); OCCULT BLOOD,URINE NEGATIVE (NEGATIVE); PH,URINE 5.5 (5.0-8.0); UROBILINOGEN,URINE NORMAL (NORMAL)
--- NOTE | 2016-07-24 22:25 | NUR ---
Pt very argumentative with care. Refused to take the ordered 100 mg of metoprolol, pt would only take 50 mg. Pt also refused blood sugar check for HS.
[2016-07-25] VITALS (7 sets, daily range): BP systolic 90–126; BP diastolic 50–86; PULSE 55–122; RESP 16–20; O2SAT 90–94
[2016-07-25 03:35] LABS: BASOPHILS % (AUTO) 0.2 % (0-3); EOSINOPHILS % (AUTO) 1.1 % (0-5); MONOCYTES % (AUTO) 9.1 % (4-12); Mean Corpuscular Volume 93.7 fL (81-100); NEUTROPHILS % (AUTO) 73.7 % (40-74); Platelet Count 249 bil/L (150-400)
[2016-07-25 04:21] LABS: Magnesium 2.3 mg/dL (1.6-2.6); Phosphorus 4.2 mg/dL (2.5-4.9)
[2016-07-25] MEDS: Insulin LISPRO 300 Unit/3 mL Inj SUBQ SCH ×4 (08:00→21:03)
[2016-07-25] MEDS: Furosemide 10 mg/mL 4 mL Inj IVPUSH SCH (08:53)
[2016-07-25] MEDS: Diltiazem CD 240 mg ER24 Capsule PO SCH ×2 (11:40→12:56)
--- NOTE | 2016-07-25 13:52 | PCM.PNMED ---
Subjective Date of Service Jul 25, 2016 Subjective NEPHROLOGY PROGRESS NOTE Patient is expressing frustration this morning at the number of interruptions he is experiencing with his meals. Is initially resistant to speaking with me but then relents and reports his swelling continues to be bothersome. He requests EARLENE hose or compression stockings to see if this helps. He states that he does not tolerate the dosing of metoprolol given him and would like to know more about the medication regimen on which he has been placed. Exam Vital Signs Vital Sign - Last Date Time Temp Pulse Resp B/P Pulse Ox O2 Delivery O2 Flow Rate FiO2 07/25/16 09:08 Supplement Oxygen 07/25/16 09:01 36.4 122 18 108/70 94 4.00 50 Intake and Output 07/24/16 07/24/16 07/25/16 Cumulative From/Thru 15:00 23:00 07:00 07/20/16 23:33 - 07/25/16 06:44 Intake Total 1520 ml 440 ml 7350 ml Output Total 350 ml 5150 ml Balance 1170 ml 440 ml 2200 ml Intake Oral 1520 ml 440 ml 6990 ml IV Total 360 ml Output Urine Total 350 ml 5150 ml # Voids 5 4 16 # Bowel Movements 7 2 12 Exam General: Alert, Oriented X3, Cooperative, No Acute Distress Head: Normal Eyes: PERRLA, EOMI, Scleral Anicteric Chest & Lungs: Bibasilar crackles heard posteriorly Cardiovascular: No Murmurs/Rubs/Gallops, Other (Irregularly irregular) Pulses: Radial (present and equal bilaterally), Dorsalis Pedis (could not appreciate) Abdomen: Non-tender, Distended, Normoactive bowel tones Genitourinary: Kiser Absent Extremities: Severe pitting edema up to the level of the knee Skin: Skin tight on the lower extremities Neurological: Grossly Neurologically Intact, Cranial Nerves 2-12 Intact, Normal Speech, Normal Gait IVs and Medications Medications Reviewed: Medications were reviewed in detail Lab and Diagnostics Result Diagram: 07/25/1631107/25/16311 Assessment & Plan Patient is a 65 year old male with a history of 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 He presented to [facility] on 07/21/16 with one week of worsening shortness of breath. Nephrology service is consulted due to oliguria and poor diuresis. Hospital day #5. 1) Oliguria. - Urine output believed to be low despite IV Lasix 60 mg BID. - Continue Lasix to 80 mg IV BID. - Will give another one time dose of metolazone 5 mg and re-evaluate tomorrow. - Inaccurate I&O - encourage patient to urinate in appropriate container so as to better monitor this. - Continue to monitor BMP for changes in creatinine - normal to date. 2) Peripheral edema. - Secondary to systolic dysfunction. - Diuretic changes as above in #1. - If potassium level drops below 4 mEq tomorrow, will add daily potassium supplementation. Check BMP. - Encourage patient to elevate the legs. Will also order EARLENE hose. - Daily standing weights. - Limit sodium in diet to 2 gm daily. 3) Systolic CHF secondary to tachycardia induced cardiomyopathy. - Continue losartan at this time. - Diuretics as above as patient appears to be decompensated. 4) Atrial fibrillation with RVR. - Defer to primary team for management. 5) Abnormal LFT's, improving. - Possibly secondary to congestive hepatopathy. - Continue to monitor CMP. 6) Gout. - Uric acid level 15. - Patient likely needs a higher dose of allopurinol - currently on 100mg daily. Due to abnormal LFT's will not increase the dose at this time but if they continue to normalize consider increasing dose to 300 mg daily. Thank you for the consultation on this interesting patient. We will continue to follow along during this admission. Patient was seen and examined. Case discussed with a resident. Agreed with assessment and plan as above. Julia Montesinos MD Pg [phone] GI Prophylaxis: Not indicated VTE Prophylaxis: Other (Continue home Eliquis) Resuscitation Status: CPR: Attempt Resuscitation Jeanne Stuart DO Jul 25, 2016 09:31 Alec Tiwari MD Jul 25, 2016 13:56
[2016-07-25] MEDS ORDERED: Amiodarone 150 mg/100 mL D5W IV ONE (14:05)
--- NOTE | 2016-07-25 14:32 | PROG NOTE ---
[address] [address] PROGRESS NOTE PATIENT: KESHA PANIAGUA : 1950 MR#: [id number] ADMIT: 07/21/2016 JOB ID: [id number] DATE: 07/25/2016 SUBJECTIVE: Patient is sitting on bed. He has shortness of breath on mild exertion. He has PND components as well. At present, he is not having any palpitation or chest pain. His weight is not decreasing. In summary, this 65-year-old, male, who is a patient of Dr. Lyman, who has a history of likely tachycardia-induced cardiomyopathy with chronic atrial fibrillation, history of systolic CHF, diabetes mellitus, hypertension, hypothyroidism, COPD, got admitted on July 21, 2016, because of worsening shortness of breath with PND, orthopnea-like components, as well as weight gain. In the hospital, he is being treated for CHF exacerbation. The patient has AFib with fast ventricular rate. Dr. Rodriguez saw this patient on July 22, 2016, from cardiology. This is the first time I am seeing him. He had echocardiogram on July 21, 2016, which revealed moderately dilated left ventricle with LV ejection fraction 20% to 25%. In October 2014, his LV ejection fraction was noted to be 45%. Right ventricle function was moderately reduced. There was severe bi-atrium enlargement as well as moderate MR, TR, and pulmonary artery systolic pressure about 45 mmHg and right atrial pressure about 15 mmHg. The patient also has PFO closure with occluded device in the past. There was no shunt across the device. OBJECTIVE: Blood pressure 108/70, heart rate 108-124, irregularly irregular, respiratory rate 18, oxygen saturation on 4 L 94%. HEENT: Patient has positive JVD. Chest: Decreased air entry with basal crepitations CVS: S1 variable. P2 appears prominent. No S3, no S4. I do not appreciate any significant murmur. Abdomen: Obese. Unable to palpate liver or spleen. Extremities: 3+ bilateral pedal edema. MOSAIC TECHNICIAN: Alert, oriented to time, place, and person. Vascular: No evidence of critical limb ischemia. Telemetry: AFib with fast ventricular rate. WBC 9.3, hemoglobin 15.2, platelets 249. On July 24, INR 1.31. Sodium 142, potassium 4.2, BUN 14, creatinine 0.79. Uric acid 15, total bilirubin decreased to 1.6. On July 22 was 2.3. AST, ALT decreased to 88 and 411. On July 22, ALT was 1069 and AST 638. Triglycerides 145, total cholesterol 141, LDL 94, HDL 18. TSH on July 20 was 1.61. Magnesium 2.3. Phosphorus 4.2. His weight, according to the scale, on July 20 it was 136 kg; then it was mentioned 143 kg, and on July 25 this was about 144.5 kg. ASSESSMENT/PLAN: Acute on chronic predominantly systolic congestive heart failure with profound left ventricular dysfunction with decrease in left ventricular function from 40% to 45%, ejection fraction to 20% to 25% with severe biatrial enlargement, moderate mitral and moderate tricuspid regurgitation, moderate pulmonary hypertension, abnormal liver function likely due to congested liver which is getting better, history of essential hypertension, elevated uric acid, suspicion for sleep apnea and other problems as stated above. Patient still has significant volume overload. I will start him on Lasix drip 5 mg IV per hour along with Aldactone 25 mg daily. He is on diltiazem. In view of profound LV dysfunction, we will stop diltiazem. With metoprolol tartrate, he is getting sleepy. I will change to metoprolol succinate to 50 mg three times a day. The patient will need cardioversion in anticipation of maintaining sinus rhythm to improve likely tachycardia-induced cardiomyopathy. However, he will need antiarrhythmic medications. In his case, amiodarone is a reasonable drug. Long-term side effects and multi-organ toxicities discussed with the patient. His liver function is improving. It was likely due to congested liver. The patient will need close watch on electrolytes as well as liver function. His baseline TSH is within normal limits. Once his CHF gets better, patient becomes more euvolemic, will recommend KALINA, cardioversion. Meanwhile, will continue Eliquis for stroke prevention. CHF education discussed with the patient. He is already on losartan which will continue. Discussed the plan with the patient. He agrees and concurs. The nurse will provide him literature of his medications. Total time spent today is about 50 minutes, including reviewing his records, counseling, education, etc.
[2016-07-25] MEDS ORDERED: IV Premix 1 EACH IV ONE ×2 (14:39→14:41)
[2016-07-25] MEDS ORDERED: Amiodarone 150 mg/100 mL D5W Premix IV ONE ×2 (14:39→14:41)
[2016-07-25] MEDS: MeTOProlol XL 50 mg ER24 Tablet PO SCH ×2 (14:59→20:32)
[2016-07-25] MEDS: Furosemide 5 mg/Hr Drip IV SCH ×2 (15:25)
--- NOTE | 2016-07-25 15:49 | NUR ---
Social Work: Readiness for Discharge D: Pt discussed in am rounds. Pt is not yet medically stable for discharge at this time but is approaching discharge. MD identifies no anticipated sw needs at discharge. EMR reviewed; pt has been ambulating I. PT was ordered however pt has refused multiple times and reports I ambulation to PT staff. Order canceled by MD. SUPERINTENDENT DRILLING met with pt briefly at bedside to provide him with information on [facility] information in [place]. Pt accepted information; pt denies any discharge needs or concerns and states his friend will transport him home to the [facility]. A: Pt who is I at baseline and receives medical care in [facility]. P: Anticipate pt to return to the [facility] with friend to transport once medically stable; SUPERINTENDENT DRILLING to continue to follow. NAYELI Miles
--- NOTE | 2016-07-25 16:09 | PCM.PNMED ---
Subjective Date of Service Jul 25, 2016 Subjective Patient continues to express frustration with his lack of progress and course of care. He states that he would be up and walking but was chastised for being in hallway with his backside exposed(pants and robe are available to him), he states that he has been urinating in the toilet because he thinks the urinal is dirty and doesn't want to get an infection(this greatly complicated accurate measures of I/Os), states that Metoprolol makes him too light headed to take recommended dose. Refused additional diuretic due to aforementioned lightheadedness. Refusing blood glucose checks and insulin administration. Overnight remained belligerent and uncooperative with care. Comprehensive ROS negative except as listed above. Exam Vital Signs Vital Sign - Last Date Time Temp Pulse Resp B/P Pulse Ox O2 Delivery O2 Flow Rate FiO2 07/25/16 15:36 36.9 58 16 106/62 90 Room Air 07/25/16 09:01 4.00 50 Intake and Output 07/24/16 07/24/16 07/25/16 Cumulative From/Thru 15:00 23:00 07:00 07/20/16 23:33 - 07/25/16 06:44 Intake Total 1520 ml 440 ml 7350 ml Output Total 350 ml 5150 ml Balance 1170 ml 440 ml 2200 ml Intake Oral 1520 ml 440 ml 6990 ml IV Total 360 ml Output Urine Total 350 ml 5150 ml # Voids 5 4 16 # Bowel Movements 7 2 12 Exam Gen: A/O x3, very talkative and tangential gentleman who is frustrated with course of care Neck: Large circumference neck, no JVD, Full ROM HEENT: PERRL, EOMI, no scleral icterus, no conjunctival pallor CV: Very distant heart sounds, irregularly irregular with rate in 110s, no perceptible murmurs Resp: Lungs with mild bibasilar crackles, no wheezing rales or rhonchi Abd: Large protuberant belly,BS+ 4Q, no rebound masses or guarding Extr: +2 pitting BL LE edema unchanged from prior exam, no cyanosis or clubbing Neuro: CN 2-12 grossly intact, no focal neurologic deficit Psych: Very tangential conversation, anxiety about course of care, appropriate IVs and Medications IV Fluids 300 ml delivered with IV meds Medications Reviewed: Medications were reviewed in detail Lab and Diagnostics Item Value Date Time Red Blood Count 5.07 mil/mm3 07/25/16311 Mean Corpuscular Volume 93.7 fL 07/25/16311 Mean Corpuscular Hemoglobin 30.0 pg 07/25/16311 Mean Corpuscular Hemoglobin Concent 32.0 % 07/25/16311 Red Cell Distribution Width 17.3 % H 07/25/16311 Neutrophils (%) (Auto) 73.7 % 07/25/16311 Lymphocytes (%) (Auto) 15.6 % 07/25/16311 Monocytes (%) (Auto) 9.1 % 07/25/16311 Eosinophils (%) (Auto) 1.1 % 07/25/16311 Basophils (%) (Auto) 0.2 % 07/25/16311 Estimat Glomerular Filtration Rate 104 mL/min 07/25/16311 Uric Acid 15.0 mg/dL H 07/25/16311 Calcium Level 8.6 mg/dL 07/25/16311 Phosphorus Level 4.2 mg/dL 07/25/16311 Magnesium Level 2.3 mg/dL 07/25/16311 Total Bilirubin 1.6 mg/dL H 07/25/16311 Aspartate Amino Transf (AST/SGOT) 88 U/L H 07/25/16311 Alanine Aminotransferase (ALT/SGPT) 411 U/L H 07/25/16311 Total Protein 6.0 g/dL L 07/25/16311 Albumin 3.5 g/dL 07/25/16311 Result Diagram: 07/25/1631107/25/16311 Microbiology Blood cultures no growth after 48 hours X-Rays, CTs and MRIs X-RAY CHEST ONE VIEW, PORTABLE IMPRESSION: Cardiomegaly and interstitial prominence. No definite acute cardiopulmonary process. Dictated by: Justice MARTINEZ Interpreted: Catalina Maxwell MD on 07/21/2016 at 9:09 Transcribed by: WILSON on 07/21/2016 at 9:09 Approved by: Catalina Maxwell M.D. on 07/21/2016 at 10:14 . Additional Diagnostics PROCEDURE: US ABDOMEN, LIMITED IMPRESSION: 1. No ascites. 2. Probable chronic liver and kidney disease. No hydronephrosis of the kidneys. Dictated by: Justice Gregory RRA Interpreted: Kevin Kearney MD on 07/21/2016 at 14 :40 Transcribed by: JACKY on 07/21/2016 at 14:42 Approved by: Kevin Kearney M.D. on 07/21/2016 at 15:10 . Assessment & Plan 65-year-old male with past medical history remarkable for high output/ tachycardia associated cardiomyopathy, chronic systolic heart failure, and atrial fibrillation presents with 1 week of worsening shortness of breath. Patient remains in Afib Aflutter with rates in the 130's-150's range, will have him work with PT to establish his exertional rate. Dr. Steinberg from Cardiology has been consulted on the patient and elected to modify course of treatment, which is understandable given previous frustrating lack of progress and compliance atrial fibrillation with rapid ventricular response, POA, acute on chronic. Active - Records indicate the patient was last seen by cardiology in May 2016 with plans for possible cardioversion in the future, and switched from carvedilol to metoprolol XL with possible future induction of diltiazem with improved ejection fraction - Metoprolol Succinate 50 mg TID per cardiology - ECG shows A. fib with RVR - Patient given diltiazem loading dose 10mg and initially continued on diltiazem drip from ED - Prior anticoagulation adherence before admission is questionable given overall non compliance and reported half dosing at best, will withhold anti- arrhythmics to forestall conversion until anti-coagulation is more assured - Complete echo reveals decreased EF of 25% down from 45% in 2015 - Continue outpatient Apixaban at standard dosing, monitoring for lower GI bleed per patient report with full regular dosing - Optimize electrolytes, monitor with daily BMP - Cardiology consulted and we appreciate their expertise - Amiodarone Drip per cardiology started today (07/25/16) - Consider KALINA with cardioversion once patient becomes more euvolemic - Will need to closely follow liver function and electrolytes on amiodarone Acute on chronic hypoxemic respiratory failure, POA, acute on chronic. Active - Patient with desaturation as low as 70s without supplemental O2 - Patient initially only intermittently compliant with O2 supplementation, thus frequent hypoxemic events, now more compliant with less desaturation - Likely secondary to CHF exacerbation - Diuresis and cardiac management as outlined below - Jasper luanip with strict I/Os Tachycardia induced cardiomyopathy, POA, chronic. Active - Echocardiogram from 2014 shows EF of 40-45%, repeat ECHO official results pending - Continue outpatient digoxin 0.0625mg(Dig level undetectable) - Amiodarone as above - Metoprolol as above Acute exacerbation of Chronic systolic heart failure, POA, acute on chronic. Active - Patient appears hypervolemic on exam, and elevated Pro-BNP 3061 - Echocardiogram from 2014 shows EF of 40-45%, now 20-25% - Continue outpatient losartan 25 mg daily - Lasix drip as above - Nephrology consult to evaluate poor urine output in the face of diuretic therapy Leukocytosis, POA, acute. Active - Perhaps secondary to elevated uric acid - Patient is SIRS positive with WBC 13.1, heart rate 163, respiratory rate 30 upon admission - Elevated Lactic Acid 2.5 with elevated procalcitonin of 0.48 consistent with possible infection - No definitive source of infection is identified and patient does not appear acutely infectious at this time - Patient is hypervolemic with CHF described above avoid IV fluids - Acute hepatitis panel ordered - Blood cultures ordered - CXR ordered and pending - Abdominal US negative for ascites, indicative of perhaps liver or kidney disease - ID consulted and we appreciate their input Acute liver failure with elevated indirect bilirubin and transaminase, POA, chronicity uncertain. Improving - AST 1279 and ALT 922 with indirect bilirubin 2.4 on admission, now improving - Initial scoring: Meld 20 indicative of 6% 3 month mortality, Maddrey discriminate function 53 indicative of benefit from steroids - Patient denies risky sexual activity or illicit drug use - Acute hepatitis negative - Potential congestive hepatopathy - Abdominal US as above - Will closely monitor with Amiodarone therapy Hyperglycemia, POA, chronic. Active - A1c 5.8 - Correction scale lispro ordered, patient is refusing glucose checks and correctional insulin - Constant carb diet Subclinical Hypothyroidism, POA, chronic. Active - Per [facility] records which also indicated an TSH of 0.811 in June 2012 - TSH within normal limits - Not currently on outpatient medication Hyperlipidemia, POA, chronic. Active - Per [facility] records which also indicated LDL 107, HDL 39, total cholesterol 177 - Recheck this admission - Not currently on outpatient medication - Withholding Statin due to liver failure History of Moderate aortic arch aneurysm, POA, chronic. Active - Complete echo ordered - Monitor History of lower GI bleed, POA, chronicity uncertain. Active - [facility] records indicate possible diverticulosis - Patient indicates bright blood on toilet tissue when taking full dose of Apixaban - Encourage patient to obtain colonoscopy in near future - Hemoglobin is 15.5 - Monitor with initiation of full dose Apixaban Disposition: Uncertain at this time, patient has proven difficult to treat both because of likely longstanding nature of Afib, and intermittent belligerent non- compliance with care; at least 2-3 more days. Pain Evaluation: Adequate Pain Control GI Prophylaxis: Not indicated VTE Prophylaxis: Other (Continue home Eliquis) Resuscitation Status: CPR: Attempt Resuscitation Time spent greater than 40 minutes Attending Statement The patient was seen and examined together with Dr. Thompson on 07/25/16 and I have added additional information to the note above. Patient is very difficult and seems very argumentative over each step of care. The patient has been convinced to urinate in the absence of that we can keep accurate account of the patient's fluids. The patient has been put on 1.5 L fluid restriction. The patient has some concerns about taking metoprolol as he states this causes him to be very lethargic. We will continue the 50 mg of metoprolol but we will give it 3 times a day and said the patient having 100mg twice a day. Amiodarone has also been added for rate control and patient has not placed on Lasix drip we will continue to monitor the patient to see if this helps to control his rate. The patient will be given information about his CHF and about the medications that he is currently taking. The patient does have a misunderstanding of his A. fib as the patient feels that he can track his A. fib with diet and exercise. It was explained to the patient that this is not the case but diet and exercise should help his CHF but he will definitely need medications in order to control his heart rate. Patient states that he understands and is more willing to comply with nursing and with taking his medications. Guillermo Thompson DO Jul 25, 2016 16:09 Arely Morgan DO Jul 26, 2016 12:16
--- NOTE | 2016-07-25 17:53 | NUR ---
Afib Pt HR in the 120's-130's. ordered amiodarone gtt started at 33.4ml/hr and a Lasix gtt at 5mg/hr. Metoprolol changed to succenate 50mg TID PO. Fluid restrictions are 1.5L a day. 2050cc urine output. 1 large BM. CHF pamphlet given. BP stable. Pt remains anxious with self care instructions. Refusing surjit hose at this time. Encouraging pt to elevated legs. Second peripheral IV placed by IV therapy.
[2016-07-25] MEDS: Amiodarone 360 mg/200 mL D5W IV SCH (21:35)
[2016-07-26] VITALS (9 sets, daily range): BP systolic 92–124; BP diastolic 58–77; PULSE 56–104; RESP 16–18; O2SAT 90–94
--- NOTE | 2016-07-26 01:00 | NUR ---
communication patient states "no one has done anything for me in a week. it was only today that I started to lose fluid." I: attempted to review patient's care, patient quickly became argumentative E: cont to provide supportive care and education
--- NOTE | 2016-07-26 05:05 | NUR ---
refused labs patient refused labs per medical lab tech instructor prefers after 0981
[2016-07-26] MEDS: Furosemide 5 mg/Hr Drip IV SCH ×2 (06:15)
[2016-07-26] MEDS: Insulin LISPRO 300 Unit/3 mL Inj SUBQ SCH ×4 (08:00→21:05)
[2016-07-26] MEDS: MeTOProlol XL 50 mg ER24 Tablet PO SCH ×3 (09:10→20:25)
--- NOTE | 2016-07-26 12:06 | PROG NOTE ---
[address] [address] PROGRESS NOTE PATIENT: KESHA PANIAGUA : 1950 MR#: [id number] ADMIT: 07/21/2016 JOB ID: [id number] DATE: 07/26/2016 SUBJECTIVE: The patient is feeling better. He is having good urine output. No worsening chest pain or palpitation or bleeding or new cardiovascular symptoms. OBJECTIVE: Blood pressure 114/77, heart rate 92-104, respiratory rate 18, oxygen saturation 98%. So far, he has negative balance of 3073 mL. Still has JVD. Chest: Decreased air entry at the bases. CVS: S1 variable, P2 appears to be prominent. No S3, no S4. No new murmur. Abdomen: Obese. Unable to palpate liver or spleen. Extremities: Still has 2+ bilateral pedal edema. HUMAN RESOURCES DISTRICT MANAGER: Alert. Oriented to time, place, and person. The patient has refused labs today. On telemetry the patient still has AFIB with fast ventricular rate but overall it is improving. ASSESSMENT AND PLAN: Acute on chronic predominantly systolic congestive heart failure with profound LV dysfunction which has decreased from 40% to 45% to 20% to 25% with likely chronic AFIB with fast ventricular rate, severe biatrial enlargement, moderate MR, moderate TR, moderate pulmonary hypertension, abnormal liver function likely due to congested liver, essential hypertension, sleep apnea, elevated uric acid. Yesterday I started him on Lasix drip 5 mg/hour which appears to be functioning well. His urine output has increased. He was started on Aldactone and amiodarone yesterday. For anticoagulation he is on Eliquis. He is on losartan as well. Most likely we are dealing with tachycardia induced cardiomyopathy. He is on a small dose of digoxin. At this point of time we will continue current medical treatment. The patient still has significant volume overload which will take a few days to make him euvolemic. The patient will need cardioversion down the road. Dr. Lyman, who is his regular bindery technician, will take the service in this coming Thursday and can plan the KALINA cardioversion down the road. Discussed the plan with the patient. He understands it. All the questions were answered. I tried to convince him to get his lab tests done as requested. TIME: Total time spent today about 40 minutes.
--- NOTE | 2016-07-26 12:10 | PCM.PNNEPH ---
Subjective Date of Service Jul 26, 2016 Subjective Now on IV amiodarone and IV lasix gtt per cardiology. He seems better today. UOP has improved. LE swelling persists but not worsens. Exam Vital Signs Vital Sign - Last Date Time Temp Pulse Resp B/P Pulse Ox O2 Delivery O2 Flow Rate FiO2 07/26/16 10:36 104 07/26/16 10:24 114/77 07/26/16 09:15 36.6 18 94 Room Air 07/25/16 09:01 4.00 50 Intake and Output 07/25/16 07/25/16 07/26/16 Cumulative From/Thru 15:00 23:00 07:00 07/20/16 23:33 - 07/26/16 06:29 Intake Total 1077 ml 8427 ml Output Total 4150 ml 9300 ml Balance -3073 ml -873 ml Intake Oral 550 ml 7540 ml IV Total 527 ml 887 ml Output Urine Total 4150 ml 9300 ml # Voids 16 # Bowel Movements 12 Exam General: Alert, Oriented X3, Cooperative, No Acute Distress Head: Normal Eyes: PERRLA, EOMI, Scleral Anicteric Chest & Lungs: Bibasilar crackles heard posteriorly Cardiovascular: No Murmurs/Rubs/Gallops, Other (Irregularly irregular) Pulses: Radial (present and equal bilaterally), Dorsalis Pedis (could not appreciate) Abdomen: Non-tender, Distended, Normoactive bowel tones Genitourinary: Kiser Absent Extremities: 3+ pitting edema up to the level of the knee Skin: Skin tight on the lower extremities Lab and Diagnostics Result Diagram: 07/25/16 0312 07/25/16 0312 Microbiology Blood cultures no growth after 48 hours X-Rays, CTs and MRIs X-RAY CHEST ONE VIEW, PORTABLE IMPRESSION: Cardiomegaly and interstitial prominence. No definite acute cardiopulmonary process. Dictated by: Justice MARTINEZ Interpreted: Catalina Maxwell MD on 07/21/2016 at 9:09 Transcribed by: WILSON on 07/21/2016 at 9:09 Approved by: Catalina Maxwell M.D. on 07/21/2016 at 10:14 . Additional Diagnostics PROCEDURE: US ABDOMEN, LIMITED IMPRESSION: 1. No ascites. 2. Probable chronic liver and kidney disease. No hydronephrosis of the kidneys. Dictated by: Justice Gregory RRA Interpreted: Kevin Kearney MD on 07/21/2016 at 14 :40 Transcribed by: JACKY on 07/21/2016 at 14:42 Approved by: Kevin Kearney M.D. on 07/21/2016 at 15:10 . Plan Impression 1) Oliguria. 2) Peripheral edema. 3) Systolic CHF secondary to tachycardia induced cardiomyopathy. 4) Atrial fibrillation with RVR. 5) Abnormal LFT's, improving. 6) Gout and hyperuricemia. Plan: Continue IV lasix gtt and PO aldactone as per cardiology recommendation. Renal service will follow peripherally. Please do not hesitate to call back with any question or concern. Thank you for the consultation. Alec Tiwari MD Jul 26, 2016 12:10
[2016-07-26 12:28] LABS: Mean Corpuscular Hemoglobin 29.5 pg (27.0-35.0); Mean Corpuscular Volume 92.1 fL (81-100)
[2016-07-26 12:52] LABS: Magnesium 1.9 mg/dL (1.6-2.6)
--- NOTE | 2016-07-26 15:20 | NUR ---
[facility] Signed
--- NOTE | 2016-07-26 15:25 | PCM.PNMED ---
Subjective Date of Service Jul 26, 2016 Subjective Mr. Bui appears to be improving greatly by the numbers, but remains disgruntled and intermittently uncooperative with care. He is frustrated by being tethered to "leashes" in the form of his drips, and is occasionally refusing lab draws. Overall compliance has improved after several alternating bonilla and compassionate discussions with doctors involved. No significant overnight events Exam Vital Signs Vital Sign - Last Date Time Temp Pulse Resp B/P Pulse Ox O2 Delivery O2 Flow Rate FiO2 07/26/16 12:34 109 07/26/16 10:24 114/77 07/26/16 09:15 36.6 18 94 Room Air 07/25/16 09:01 4.00 50 Intake and Output 07/25/16 07/25/16 07/26/16 Cumulative From/Thru 15:00 23:00 07:00 07/20/16 23:33 - 07/26/16 06:29 Intake Total 1077 ml 8427 ml Output Total 4150 ml 9300 ml Balance -3073 ml -873 ml Intake Oral 550 ml 7540 ml IV Total 527 ml 887 ml Output Urine Total 4150 ml 9300 ml # Voids 16 # Bowel Movements 12 Exam Gen: A/O x3, very talkative and tangential gentleman who is frustrated with course of care Neck: Large circumference neck, no JVD, Full ROM HEENT: PERRL, EOMI, no scleral icterus, no conjunctival pallor CV: Very distant heart sounds, irregularly irregular with rate in 110s, no perceptible murmurs Resp: Lungs with mild bibasilar crackles, no wheezing rales or rhonchi Abd: Large protuberant belly,BS+ 4Q, no rebound masses or guarding Extr: +2 pitting BL LE edema unchanged from prior exam, no cyanosis or clubbing Neuro: CN 2-12 grossly intact, no focal neurologic deficit Psych: Very tangential conversation, anxiety about course of care, reported outbursts directed at nursing staff IVs and Medications IV Fluids 300 ml NS delivered with IV meds Medications Reviewed: Medications were reviewed in detail Lab and Diagnostics Item Value Date Time Red Blood Count 5.22 mil/mm3 07/26/16 1216 Mean Corpuscular Volume 92.1 fL 07/26/16 1216 Mean Corpuscular Hemoglobin 29.5 pg 07/26/16 1216 Mean Corpuscular Hemoglobin Concent 32.0 % 07/26/16 1216 Red Cell Distribution Width 17.0 % H 07/26/16 1216 Platelet Count 269 dashawn/L 07/26/16 1216 Estimat Glomerular Filtration Rate 88 mL/min 07/26/16 1216 Calcium Level 9.3 mg/dL 07/26/16 1216 Magnesium Level 1.9 mg/dL 07/26/16 1216 Total Bilirubin 1.5 mg/dL H 07/26/16 1216 Aspartate Amino Transf (AST/SGOT) 69 U/L H 07/26/16 1216 Alanine Aminotransferase (ALT/SGPT) 314 U/L H 07/26/16 1216 Alkaline Phosphatase 104 U/L 07/26/16 1216 Total Protein 6.5 g/dL 07/26/16 1216 Albumin 3.8 g/dL 07/26/16 1216 Result Diagram: 07/26/16 1216 07/26/16 1216 Microbiology Blood cultures no growth after 48 hours X-Rays, CTs and MRIs X-RAY CHEST ONE VIEW, PORTABLE IMPRESSION: Cardiomegaly and interstitial prominence. No definite acute cardiopulmonary process. Dictated by: Justice MARTINEZ Interpreted: Catalina Maxwell MD on 07/21/2016 at 9:09 Transcribed by: WILSON on 07/21/2016 at 9:09 Approved by: Catalina Maxwell M.D. on 07/21/2016 at 10:14 . Additional Diagnostics PROCEDURE: US ABDOMEN, LIMITED IMPRESSION: 1. No ascites. 2. Probable chronic liver and kidney disease. No hydronephrosis of the kidneys. Dictated by: Justice MARTINEZ Interpreted: Kevin Kearney MD on 07/21/2016 at 14 :40 Transcribed by: JACKY on 07/21/2016 at 14:42 Approved by: Kevin Kearney M.D. on 07/21/2016 at 15:10 . Assessment & Plan 65-year-old male with past medical history remarkable for high output/ tachycardia associated cardiomyopathy, chronic systolic heart failure, and atrial fibrillation presents with 1 week of worsening shortness of breath. Patient's rate improved today with sustained periods in the 90-105 range, diuresing well on Lasix drip. Patients remains obstinate at times with particular difficulty interacting with ancillary staff. atrial fibrillation with rapid ventricular response, POA, acute on chronic. Active - Records indicate the patient was last seen by cardiology in May 2016 with plans for possible cardioversion in the future, and switched from carvedilol to metoprolol XL with possible future induction of diltiazem with improved ejection fraction - Metoprolol Succinate 50 mg TID per cardiology - ECG shows A. fib with RVR - Patient given diltiazem loading dose 10mg and initially continued on diltiazem drip from ED, but d/c 07/21/16 and changed to amiodorone drip which was then stopped on 07/22/16 - Prior anticoagulation adherence before admission is questionable given overall non compliance and reported half dosing at best - Complete echo reveals decreased EF of 25% down from 45% in 2015 - Continue outpatient Apixaban at standard dosing, monitoring for lower GI bleed per patient report with full regular dosing - Optimize electrolytes, monitor with daily BMP - Cardiology consulted and we appreciate their expertise - Amiodarone Drip per cardiology started 07/25/16 - Consider KALINA with cardioversion once patient becomes more euvolemic - Will need to closely follow liver function and electrolytes on amiodarone Acute on chronic hypoxemic respiratory failure, POA, acute on chronic. Active - Patient with desaturation as low as 70s without supplemental O2 - Patient initially only intermittently compliant with O2 supplementation, thus frequent hypoxemic events, now more compliant with less desaturation - Likely secondary to CHF exacerbation - Diuresis and cardiac management as outlined above - Lasix drip with strict I/Os Tachycardia induced cardiomyopathy, POA, chronic. Active - Echocardiogram from 2014 shows EF of 40-45%, repeat ECHO official results pending - Continue outpatient digoxin 0.0625mg(Dig level undetectable) - Amiodarone as above - Metoprolol as above Acute exacerbation of Chronic systolic heart failure, POA, acute on chronic. Active - Patient appears hypervolemic on exam, and elevated Pro-BNP 3061 - Echocardiogram from 2014 shows EF of 40-45%, now 20-25% - Continue outpatient losartan 25 mg daily - Lasix drip as above - Nephrology consult to evaluate poor urine output in the face of diuretic therapy Leukocytosis, POA, acute. Resolved - Perhaps secondary to elevated uric acid - Patient is SIRS positive with WBC 13.1, heart rate 163, respiratory rate 30 upon admission - Elevated Lactic Acid 2.5 with elevated procalcitonin of 0.48 consistent with possible infection - No definitive source of infection is identified and patient does not appear acutely infectious at this time - Patient is hypervolemic with CHF described above avoid IV fluids - Acute hepatitis panel negative - Blood cultures negative - CXR ordered and demonstrative of CHF without acute infiltrate - Abdominal US negative for ascites, indicative of perhaps liver or kidney disease - ID consulted and we appreciate their input Acute liver failure with elevated indirect bilirubin and transaminase, POA, chronicity uncertain. Improving - AST 1279 and ALT 922 with indirect bilirubin 2.4 on admission, now improving - Initial scoring: Meld 20 indicative of 6% 3 month mortality, Maddrey discriminate function 53 indicative of benefit from steroids - Patient denies risky sexual activity or illicit drug use - Acute hepatitis negative - Potential congestive hepatopathy - Abdominal US as above - Will closely monitor with Amiodarone therapy Hyperglycemia, POA, chronic. Active - A1c 5.8 - Correction scale lispro ordered, patient is refusing glucose checks and correctional insulin - Constant carb diet Subclinical Hypothyroidism, POA, chronic. Active - Per [facility] records which also indicated an TSH of 0.811 in June 2012 - TSH within normal limits - Not currently on outpatient medication Hyperlipidemia, POA, chronic. Active - Per [facility] records which also indicated LDL 107, HDL 39, total cholesterol 177 - Recheck this admission - Not currently on outpatient medication - Withholding Statin due to liver failure History of Moderate aortic arch aneurysm, POA, chronic. Active - Complete echo with results as above - Monitor History of lower GI bleed, POA, chronicity uncertain. Active - [facility] records indicate possible diverticulosis - Patient indicates bright blood on toilet tissue when taking full dose of Apixaban - Encourage patient to obtain colonoscopy in near future - Hemoglobin is 15.5 - Monitor with initiation of full dose Apixaban Disposition: Patient improving at this time, will likely need 1-2 more days of diuresis with possible KALINA and cardioversion early next week. Pain Evaluation: Adequate Pain Control GI Prophylaxis: Not indicated VTE Prophylaxis: Other (Continue home Eliquis) Resuscitation Status: CPR: Attempt Resuscitation Attending Statement The patient was seen and examined together with Dr. Thompson on 07/26/16 and I have added additional information to the note above. Patient continues to be a difficult patient. as he will request to have compression stockings to help with the lower extremity edema and then once the nurse brings it in he will refuse. Patient has been more compliant with allowing out measurement of his urine and has agreed to take the medication as prescribed by cardiology. We will continue to work with the patient and try to make allowances for possible however it will not be tolerated if this is obstructing good medical care. The patient states has been made aware of this and states that he will try to be more compliant and less difficult with nursing and doctors. Guillermo Thompson DO Jul 26, 2016 15:25 Arely Morgan DO Jul 27, 2016 12:29
[2016-07-26] MEDS: Amiodarone 360 mg/200 mL D5W IV SCH ×2 (15:32→20:56)
--- NOTE | 2016-07-26 15:37 | NUR ---
Amioderone I was told in report to turn off Amio at 1500. On the EMAR it looks like the first bag was hung at 2135 last night 07/25 (making this hour 18) this however was at the rate of 16.7. I can not find anywhere where the first bag at 33.3mls was hung and if so what time. Discussed with Resident and he said he will call and clarify with cardiology and to go ahead and keep the Amioderone running and he will let me know what Maryan says. Will continue to monitor this.
[2016-07-27] VITALS (8 sets, daily range): BP systolic 86–112; BP diastolic 62–75; PULSE 53–100; RESP 20–22; O2SAT 91–94
[2016-07-27] MEDS: Furosemide 5 mg/Hr Drip IV SCH ×4 (00:21→22:56)
--- NOTE | 2016-07-27 06:17 | NUR ---
Tele/Amiodarone/Lasix/Care Patient in a-fib with rates in the 90-100s. Amiodarone gtt infusing at 16.7 mls/hour (as per 07/26/16 day shift note). Lasix gtt continues at 5 mg/hr. Patient refused blood glucose checks but otherwise cooperative with care.
[2016-07-27] MEDS: Insulin LISPRO 300 Unit/3 mL Inj SUBQ SCH ×4 (08:00→22:00)
[2016-07-27 08:35] LABS: BASOPHILS % (AUTO) 0.2 % (0-3); EOSINOPHILS % (AUTO) 1.2 % (0-5); MONOCYTES % (AUTO) 10.8 % (4-12); Mean Corpuscular Hemoglobin 29.4 pg (27.0-35.0); Mean Corpuscular Volume 91.6 fL (81-100); NEUTROPHILS % (AUTO) 71.8 % (40-74); Platelet Count 265 bil/L (150-400)
[2016-07-27 08:57] LABS: Magnesium 1.9 mg/dL (1.6-2.6); Phosphorus 5.3 mg/dL (2.5-4.9)
[2016-07-27] MEDS: Amiodarone 360 mg/200 mL D5W IV SCH ×2 (10:00→11:15)
[2016-07-27] MEDS: MeTOProlol XL 50 mg ER24 Tablet PO SCH ×3 (11:55→22:55)
--- NOTE | 2016-07-27 12:46 | PROG NOTE ---
[address] [address] PROGRESS NOTE PATIENT: KESHA PANIAGUA : 1950 MR#: [id number] ADMIT: 07/21/2016 JOB ID: [id number] DATE: 07/27/2016 SUBJECTIVE: The patient is having good urine output. He is losing weight. Overall he is feeling better. No worsening chest pain or palpitation or shortness of breath. He is sleeping now better. OBJECTIVE: Blood pressure of 101/69, heart rate 91 and irregular, respiratory rate 20, oxygen saturation 91% to 92%. The patient still has JVD, however no obvious crepitation or rhonchi. CVS: S1 variable. P2 appears prominent. No S3, no S4. No significant murmur. Abdomen: Obese. PATTERN FITTER: Alert. Oriented to time, place, and person. Extremities: Still has around 2+ bilateral pedal edema. On telemetry the patient has AFIB but the rate is getting better controlled. Yesterday he was negative balance of 3463 mL, today 2013 mL. LABORATORY: Hemoglobin 16.1, platelets 265. Sodium 141, potassium 3.8, BUN 31, creatinine 0.88. AST and ALT getting better. Magnesium 1.9. ASSESSMENT AND PLAN: Acute on chronic predominantly systolic congestive heart failure with profound LV dysfunction which has decreased from 40% to 45% to 20% to 25% with likely tachycardia induced cardiomyopathy due to chronic AFIB with fast ventricular rate, underlying moderate MR, moderate TR, severe biatrial enlargement, moderate pulmonary hypertension, abnormal liver function likely due to congested liver which is getting better, essential hypertension, sleep apnea, elevated uric acid. The patient is responding to Lasix drip, which is 5 mg/hour. He is on Aldactone as well. He is on Eliquis for anticoagulation. I started him on amiodarone as well. Overall his rate is getting better. At this point of time will continue current medical regime. Once he gets euvolemic he will need KALINA cardioversion. Tomorrow my associate, Dr. Lyman, who is his regular bleacher [employer], will take care of him. He is on small dose of dig. As dig may have interaction with amiodarone, will check dig level as well. Discussed the plan with the patient. He agrees and concurs. TIME: Total time spent today about 35 minutes.
--- NOTE | 2016-07-27 14:23 | PCM.PNMED ---
Subjective Date of Service Jul 27, 2016 Subjective Patient was seen and examined today. It is questionable whether he is allowing us to track his output accurately. He has lost 5-6Kg since admission. His rate is currently being managed by cardiology and he is doing relatively well on the amiodarone drip. Exam Vital Signs Vital Sign - Last Date Time Temp Pulse Resp B/P Pulse Ox O2 Delivery O2 Flow Rate FiO2 07/27/16 12:12 97 07/27/16 11:46 36.6 20 112/74 94 Room Air 07/25/16 09:01 4.00 50 Intake and Output 07/26/16 07/26/16 07/27/16 Cumulative From/Thru 15:00 23:00 07:00 07/20/16 23:33 - 07/27/16 06:57 Intake Total 1660 ml 775 ml 79102 ml Output Total 2050 ml 2788 ml 39293 ml Balance -390 ml -2013 ml -3276 ml Intake Oral 1400 ml 536 ml 9476 ml IV Total 260 ml 239 ml 1386 ml Output Urine Total 2050 ml 2788 ml 70210 ml # Voids 16 # Bowel Movements 1 13 Exam Gen: A/O x3, very talkative and tangential CV: irregularly irregular, no perceptible murmurs Resp: CTA no wheezes or crackles Abd: Large protuberant belly,BS+ 4Q, no rebound masses or guarding Extr: +2 pitting BL LE edema Psych: Very tangential conversation, anxiety about course of care, reported outbursts directed at nursing staff continues IVs and Medications Medications Reviewed: Medications were reviewed in detail Lab and Diagnostics Result Diagram: 07/27/16 0820 07/27/16 0820 Microbiology Blood cultures no growth after 48 hours X-Rays, CTs and MRIs X-RAY CHEST ONE VIEW, PORTABLE IMPRESSION: Cardiomegaly and interstitial prominence. No definite acute cardiopulmonary process. Dictated by: Justcie MARTINEZ Interpreted: Catalina Maxwell MD on 07/21/2016 at 9:09 Transcribed by: WILSON on 07/21/2016 at 9:09 Approved by: Catalina Maxwell M.D. on 07/21/2016 at 10:14 . Additional Diagnostics PROCEDURE: US ABDOMEN, LIMITED IMPRESSION: 1. No ascites. 2. Probable chronic liver and kidney disease. No hydronephrosis of the kidneys. Dictated by: Justice Gregory RRA Interpreted: Kevin Kearney MD on 07/21/2016 at 14 :40 Transcribed by: JACKY on 07/21/2016 at 14:42 Approved by: Kevin Kearney M.D. on 07/21/2016 at 15:10 . Assessment & Plan 65-year-old male with past medical history remarkable for high output/ tachycardia associated cardiomyopathy, chronic systolic heart failure, and atrial fibrillation presents with 1 week of worsening shortness of breath. Patient's rate improved today with sustained periods in the 90-105 range, diuresing well on Lasix drip. Patients remains obstinate at times with particular difficulty interacting with ancillary staff. Atrial fibrillation with rapid ventricular response, POA, acute on chronic. Active - ECG shows A. fib with RVR; patient not compliant with mediation regimen at home - Metoprolol Succinate 50 mg TID per cardiology - Initially continued on diltiazem drip from ED - Continue abixaban - Cardiology consulted and we appreciate their expertise - Amiodarone Drip per cardiology started 07/25/16; another 24 hours and then switch to PO Acute on chronic hypoxemic respiratory failure, POA, acute on chronic. Active - Patient with desaturation as low as 70s without supplemental O2 - Patient initially only intermittently compliant with O2 supplementation, thus frequent hypoxemic events, now more compliant with less desaturation - Likely secondary to CHF exacerbation - Diuresis and cardiac management as outlined above - Lasix drip with strict I/Os Tachycardia induced cardiomyopathy, POA, chronic. Active - Echocardiogram from 2014 shows EF of 40-45%, repeat ECHO official results pending - Continue outpatient digoxin 0.0625mg(Dig level undetectable) - Amiodarone as above - Metoprolol as above Acute exacerbation of Chronic systolic heart failure, POA, acute on chronic. Active - Patient appears hypervolemic on exam, and elevated Pro-BNP 3061 - Echocardiogram from 2014 shows EF of 40-45%, now 20-25% - Continue outpatient losartan 25 mg daily - Lasix drip as above - Nephrology consult to evaluate poor urine output in the face of diuretic therapy Leukocytosis, POA, acute. Resolved - Perhaps secondary to elevated uric acid - Patient is SIRS positive with WBC 13.1, heart rate 163, respiratory rate 30 upon admission - Elevated Lactic Acid 2.5 with elevated procalcitonin of 0.48 consistent with possible infection - No definitive source of infection is identified and patient does not appear acutely infectious at this time - Patient is hypervolemic with CHF described above avoid IV fluids - Acute hepatitis panel negative - Blood cultures negative - CXR ordered and demonstrative of CHF without acute infiltrate - Abdominal US negative for ascites, indicative of perhaps liver or kidney disease - ID consulted and we appreciate their input Acute liver failure with elevated indirect bilirubin and transaminase, POA, chronicity uncertain. Improving - AST 1279 and ALT 922 with indirect bilirubin 2.4 on admission, now improving - Initial scoring: Meld 20 indicative of 6% 3 month mortality, Maddrey discriminate function 53 indicative of benefit from steroids - Patient denies risky sexual activity or illicit drug use - Acute hepatitis negative - Potential congestive hepatopathy - Abdominal US as above - Will closely monitor with Amiodarone therapy Hyperglycemia, POA, chronic. Active - A1c 5.8 - Correction scale lispro ordered, patient is refusing glucose checks and correctional insulin - Constant carb diet Subclinical Hypothyroidism, POA, chronic. Active - Per [facility] records which also indicated an TSH of 0.811 in June 2012 - TSH within normal limits - Not currently on outpatient medication Hyperlipidemia, POA, chronic. Active - Per [facility] records which also indicated LDL 107, HDL 39, total cholesterol 177 - Recheck this admission - Not currently on outpatient medication - Withholding Statin due to liver failure History of Moderate aortic arch aneurysm, POA, chronic. Active - Complete echo with results as above - Monitor History of lower GI bleed, POA, chronicity uncertain. Active - [facility] records indicate possible diverticulosis - Patient indicates bright blood on toilet tissue when taking full dose of Apixaban - Encourage patient to obtain colonoscopy in near future - Hemoglobin is 15.5 - Monitor with initiation of full dose Apixaban Disposition: Patient improving at this time, will likely need 1-2 more days of diuresis and amiodarone treatment prior to discharge. Patient will potentially transfer over to by mouth amiodarone tomorrow and have a possible KALINA on Thursday , with potential subsequent discharge. GI Prophylaxis: Not indicated VTE Prophylaxis: Other (Continue home Eliquis) Resuscitation Status: CPR: Attempt Resuscitation Attending Statement The patient was seen and examined together with Dr. Tee on 07/27/16 and I have added additional information to the note above. Niall Tee DO Jul 27, 2016 12:32 Arely Morgan DO Jul 28, 2016 14:57
--- NOTE | 2016-07-27 19:29 | NUR ---
Non Compliant with care/Amiodarone drip pt refusing to have his blood sugar checked, stating not needing to and having his blood sugars under control. Refusing to follow diet ordered by MD. Dr Zheng in to see pt this am, new order to keep Amiodarone drip going for an other 24hrs then switch to PO. Oncoming RN aware.
[2016-07-28] VITALS (12 sets, daily range): BP systolic 71–149; BP diastolic 47–78; PULSE 57–98; RESP 16–22; O2SAT 90–95
[2016-07-28] MEDS: Amiodarone 360 mg/200 mL D5W IV SCH (03:09)
--- NOTE | 2016-07-28 06:38 | NUR ---
Amiodarone Drip/Anxiety/Behavior Per report pt's amiodarone drip is to continue for another 24 hours from 1100 on 07/27/2016. Pt should have amiodarone drip completed by 1100 today. Pt has c/o anxiety regarding the upcoming cardioversion. Pt wants to know if the cardioversion will be done as inpatient here at the hospital since he lives in [facility]. Pt has been very gregarious and friendly as long as someone is willing to listen to him.
[2016-07-28] MEDS: Insulin LISPRO 300 Unit/3 mL Inj SUBQ SCH ×4 (08:00→21:51)
[2016-07-28 08:10] LABS: BASOPHILS % (AUTO) 0.2 % (0-3); EOSINOPHILS % (AUTO) 1.1 % (0-5); MONOCYTES % (AUTO) 9.4 % (4-12); Mean Corpuscular Hemoglobin 29.1 pg (27.0-35.0); Mean Corpuscular Volume 91.4 fL (81-100); NEUTROPHILS % (AUTO) 75.8 % (40-74); Platelet Count 217 bil/L (150-400)
[2016-07-28] MEDS: MeTOProlol XL 50 mg ER24 Tablet PO SCH ×3 (09:07→21:44)
[2016-07-28] MEDS ORDERED: Potassium Chloride 20 mEq SR Tablet PO ONE (10:00)
--- NOTE | 2016-07-28 11:35 | PCM.PNCARD ---
Subjective Date of service Jul 28, 2016 Chief Complaint Short summary breath History of Present Illness This is a patient that is bile unknown to me. Unfortunately he has history of noncompliancy to medications. He has reduced his metoprolol to half what he was supposed to be taking because he felt better. Unfortunately he came in with rapid atrial fibrillation and worsening left ventricular systolic dysfunction. He was seen by my colleague and patient was placed on intravenous Lasix and amiodarone. He is still in atrial fibrillation but with much better rate control. He has diuresed appropriately. Patient is symptomatically much improved. Constitutional: Denies: Fever, Sweats ENT: Denies: Ear Pain Cardiovascular: Reports: Edema, Irregular Heart Rate, Rapid Heart Rate, Denies: Chest Pain Respiratory: Reports: SOB with Exertion, Denies: Shortness of Breath, Wake up SOB Gastrointestinal: Denies: Abdominal Pain Genitourinary: Denies: No burning or pain with urination Musculoskeletal: Denies: Ankle Pain, Back Pain Neurological: Denies: Confusion, Dizziness Endocrine: Reports: Blood Glucose Review, Weight Gain Exam Vital Signs Vital Sign - Last Date Time Temp Pulse Resp B/P Pulse Ox O2 Delivery O2 Flow Rate FiO2 07/28/16 10:43 88 07/28/16 09:12 37.1 16 100/58 91 Room Air 07/25/16 09:01 4.00 50 Intake and Output 07/27/16 07/27/16 07/28/16 Cumulative From/Thru 15:00 23:00 07:00 07/20/16 23:33 - 07/28/16 06:13 Intake Total 748 ml 580 ml 68948 ml Output Total 2075 ml 2160 ml 10858 ml Balance -1327 ml -1580 ml -6183 ml Intake Oral 586 ml 580 ml 25327 ml IV Total 162 ml 1548 ml Output Urine Total 2075 ml 2160 ml 56151 ml # Voids 4 20 # Bowel Movements 1 14 General: Pleasant Cooperative Moderately obese Skin: Warm & dry to touch Head: Normocephalic Ears, Nose & Throat: Ears no gross abnormalities Neck: Nuchal obesity:JVP assess difficult Cardiac: Irregularly irregular rhythm Pulses: Pulses full/equal all extremities Extremities: Warm w/o deformities,erythema noted Neurological: Alert & oriented Psychological: Affect & interaction appropriate Lab and Diagnostics Result Diagram: 07/28/16 0803 07/28/16 0803 Additional Diagnostics: Left ventricular ejection fraction was estimated around 20-25% with severe global hypokinesis. The right ventricular systolic function is moderately reduced. There is severe biatrial enlargement. Moderate MR and TR with right ventricular systolic pressures estimated at 45 mmHg. Assessment & Plan Problems: (1) Acute on chronic clinical systolic heart failure Plan: Agree with my colleague of this is most likely tachycardia mediated card myopathy from rapid atrial fibrillation. His heart rates much better rate control with the addition of amiodarone. I have switched his intravenous amiodarone to oral amiodarone. The patient is scheduled for transesophageal echocardiogram and cardioversion tomorrow 3:00. Please keep patient nothing by mouth past midnight. The patient was explained about the procedure. He will be scheduled with anesthesiologist. After the cardioversion then we will decide if and when the patient can be discharged to home. Status: Acute ICD Code: I50.23 (2) Tachycardia induced cardiomyopathy Status: Acute ICD Code: R00.0 (3) Noncompliance w/medication treatment due to intermit use of medication Status: Acute ICD Code: Z91.14 Pain Evaluation: Adequate Pain Control GI Prophylaxis: Not indicated VTE Prophylaxis: Other (Continue home Eliquis) Resuscitation Status: CPR: Attempt Resuscitation Time spent 20 minutes Jelani Lyman MD Jul 28, 2016 11:35
--- NOTE | 2016-07-28 11:45 | PCM.PNMED ---
Subjective Date of Service Jul 28, 2016 Subjective Mr. Bui has become increasingly more pleasant and cooperative since he began diuresing. He is still not cooperative with many aspects of care including posture and refusing blood sugar checks and correctional insulin. No significant overnight events. Comprehensive ROS negative except as listed above. Exam Vital Signs Vital Sign - Last Date Time Temp Pulse Resp B/P Pulse Ox O2 Delivery O2 Flow Rate FiO2 07/28/16 10:43 88 07/28/16 09:12 37.1 16 100/58 91 Room Air 07/25/16 09:01 4.00 50 Intake and Output 07/27/16 07/27/16 07/28/16 Cumulative From/Thru 15:00 23:00 07:00 07/20/16 23:33 - 07/28/16 06:13 Intake Total 748 ml 580 ml 26053 ml Output Total 2075 ml 2160 ml 81973 ml Balance -1327 ml -1580 ml -6183 ml Intake Oral 586 ml 580 ml 00919 ml IV Total 162 ml 1548 ml Output Urine Total 2075 ml 2160 ml 16213 ml # Voids 4 20 # Bowel Movements 1 14 Exam Gen: A/O x3, very talkative and tangential gentleman Neck: Large circumference neck, no JVD, Full ROM HEENT: PERRL, EOMI, no scleral icterus, no conjunctival pallor CV: Very distant heart sounds, irregularly irregular with rate in 90s, no perceptible murmurs Resp: Lungs with mild bibasilar crackles, no wheezing rales or rhonchi Abd: Large protuberant belly,BS+ 4Q, no rebound masses or guarding Extr: +2 pitting BL LE edema improved from prior exam, no cyanosis or clubbing Neuro: CN 2-12 grossly intact, no focal neurologic deficit Psych: Pleasant and appropriate mood and affect with tangential conversation IVs and Medications IV Fluids 100 ml NS delivered with IV meds Medications Reviewed: Medications were reviewed in detail Lab and Diagnostics Item Value Date Time Red Blood Count 5.32 mil/mm3 07/28/16 0803 Mean Corpuscular Volume 91.4 fL 07/28/16 0803 Mean Corpuscular Hemoglobin 29.1 pg 07/28/16 0803 Mean Corpuscular Hemoglobin Concent 31.9 % L 07/28/16 0803 Red Cell Distribution Width 16.4 % H 07/28/16 08 Neutrophils (%) (Auto) 75.8 % H 07/28/16 08 Monocytes (%) (Auto) 9.4 % 07/28/16 08 Lymphocytes (%) (Auto) 13.2 % L 07/28/16 08 Eosinophils (%) (Auto) 1.1 % 07/28/16 08 Basophils (%) (Auto) 0.2 % 07/28/16 08 Estimat Glomerular Filtration Rate 80 mL/min 07/28/16 08 Calcium Level 9.2 mg/dL 07/28/16 08 Total Bilirubin 2.0 mg/dL H 07/28/16 08 Aspartate Amino Transf (AST/SGOT) 36 U/L 07/28/16 08 Alanine Aminotransferase (ALT/SGPT) 188 U/L H 07/28/16 08 Alkaline Phosphatase 93 U/L 07/28/16 08 Albumin 3.7 g/dL 07/28/16 08 Total Protein 6.4 g/dL 07/28/16 08 Result Diagram: 07/28/16 0803 07/28/16 08 Microbiology Blood cultures no growth after 5 days X-Rays, CTs and MRIs X-RAY CHEST ONE VIEW, PORTABLE IMPRESSION: Cardiomegaly and interstitial prominence. No definite acute cardiopulmonary process. Dictated by: Justice MARTINEZ Interpreted: Catalina Maxwell MD on 07/21/2016 at 9:09 Transcribed by: WILSON on 07/21/2016 at 9:09 Approved by: Catalina Maxwell M.D. on 07/21/2016 at 10:14 . Additional Diagnostics PROCEDURE: US ABDOMEN, LIMITED IMPRESSION: 1. No ascites. 2. Probable chronic liver and kidney disease. No hydronephrosis of the kidneys. Dictated by: Justice MARTINEZ Interpreted: Kevin Kearney MD on 07/21/2016 at 14 :40 Transcribed by: JACKY on 07/21/2016 at 14:42 Approved by: Kevin Kearney M.D. on 07/21/2016 at 15:10 . Assessment & Plan 65-year-old male with past medical history remarkable for high output/ tachycardia associated cardiomyopathy, chronic systolic heart failure, and atrial fibrillation presents with 1 week of worsening shortness of breath. Patient's rate improved today with sustained periods in the 90-105 range, diuresing well on Lasix drip. Patients remains obstinate at times with particular difficulty interacting with ancillary staff. atrial fibrillation with rapid ventricular response, POA, acute on chronic. Improving - ECG shows A. fib with RVR; patient not compliant with mediation regimen at home - Metoprolol Succinate 50 mg TID per cardiology - Initially continued on diltiazem drip from ED - Continue abixaban - Cardiology consulted and we appreciate their expertise - Amiodarone Drip per cardiology started 07/25/16; transitioning to PO - Anticipated KALINA tomorrow with subsequent likely attempted cardioversion Acute on chronic hypoxemic respiratory failure, POA, acute on chronic. Active - Patient with desaturation as low as 70s without supplemental O2 - Patient initially only intermittently compliant with O2 supplementation, thus frequent hypoxemic events, now more compliant with less desaturation - Likely secondary to CHF exacerbation - Diuresis and cardiac management as outlined above - Lasix drip with strict I/Os Tachycardia induced cardiomyopathy, POA, chronic. Active - Echocardiogram from 2014 shows EF of 40-45%, repeat ECHO official results pending - Continue outpatient digoxin 0.0625mg(Dig level undetectable) - Amiodarone as above - Metoprolol as above Acute exacerbation of Chronic systolic heart failure, POA, acute on chronic. Active - Patient appears hypervolemic on exam, and elevated Pro-BNP 3061 - Echocardiogram from 2014 shows EF of 40-45%, now 20-25% - Continue outpatient losartan 25 mg daily - Lasix drip as above - Nephrology consult to evaluate poor urine output in the face of diuretic therapy Leukocytosis, POA, acute. Resolved - Perhaps secondary to elevated uric acid - Patient is SIRS positive with WBC 13.1, heart rate 163, respiratory rate 30 upon admission - Elevated Lactic Acid 2.5 with elevated procalcitonin of 0.48 consistent with possible infection - No definitive source of infection is identified and patient does not appear acutely infectious at this time - Patient is hypervolemic with CHF described above avoid IV fluids - Acute hepatitis panel negative - Blood cultures negative - CXR ordered and demonstrative of CHF without acute infiltrate - Abdominal US negative for ascites, indicative of perhaps liver or kidney disease - ID consulted and we appreciate their input Acute liver failure with elevated indirect bilirubin and transaminase, POA, chronicity uncertain. Improving - AST 1279 and ALT 922 with indirect bilirubin 2.4 on admission, now improving - Initial scoring: Meld 20 indicative of 6% 3 month mortality, Maddrey discriminate function 53 indicative of benefit from steroids - Patient denies risky sexual activity or illicit drug use - Acute hepatitis negative - Potential congestive hepatopathy - Abdominal US as above - Will closely monitor with Amiodarone therapy Hyperglycemia, POA, chronic. Active - A1c 5.8 - Correction scale lispro ordered, patient is refusing glucose checks and correctional insulin - Constant carb diet Subclinical Hypothyroidism, POA, chronic. Active - Per [facility] records which also indicated an TSH of 0.811 in June 2012 - TSH within normal limits - Not currently on outpatient medication Hyperlipidemia, POA, chronic. Active - Per [facility] records which also indicated LDL 107, HDL 39, total cholesterol 177 - Recheck this admission - Not currently on outpatient medication - Withholding Statin due to liver failure History of Moderate aortic arch aneurysm, POA, chronic. Active - Complete echo with results as above - Monitor History of lower GI bleed, POA, chronicity uncertain. Active - [facility] records indicate possible diverticulosis - Patient indicates bright blood on toilet tissue when taking full dose of Apixaban - Encourage patient to obtain colonoscopy in near future - Hemoglobin is 15.5 - Monitor with initiation of full dose Apixaban Disposition: Patient improving at this time, will likely need 1-2 more days of diuresis and amiodarone treatment prior to discharge. Patient has been transferred to PO amiodarone today and scheduled for KALINA tomorrow, with potential subsequent discharge. Pain Evaluation: Adequate Pain Control GI Prophylaxis: Not indicated VTE Prophylaxis: Other (Continue home Eliquis) Resuscitation Status: CPR: Attempt Resuscitation Attending Statement The patient was seen and examined together with Dr. Thompson on 07/28/16 and I have added additional information to the note above. Guillermo Thompson DO Jul 28, 2016 11:45 Arely Morgan DO Jul 28, 2016 17:35
--- NOTE | 2016-07-28 14:51 | NUR ---
Amiodarone/KALINA Pt's IV amiodarone beeping constantly "distal occlusion". Pt refusing to keep arm straight. notified. ordered OK to take off amiodarone drip. Drip saline locked at 0910. PO amiodarone started. VSS. Pt aware of KALINA schduled for tomorrow. noted for patient to be NPO after midnight but OK to still have a light snack such as applesauce or pudding prior to 0700. Procedure will be at 1530. Addendum: 07/28/16 at 1505 by KYLEE SHARP RN Pt refused all blood sugar checks and insulin administrations.
[2016-07-28] MEDS: Sodium Chloride LOK Flush 10 mL Syringe IVFLUSH SCH (16:16)
[2016-07-28] MEDS: Furosemide 5 mg/Hr Drip IV SCH ×2 (22:05)
--- NOTE | 2016-07-28 22:30 | NUR ---
Blood pressure: Dr. Baker notified of pt's systolic pressures in the low 100s. Order obtained to hold scheduled Metoprolol and to continue to hold lasix gtt. Will cont. to monitor.
[2016-07-29] VITALS (17 sets, daily range): BP systolic 92–114; BP diastolic 61–90; PULSE 51–99; RESP 18–25; O2SAT 84–94
[2016-07-29] MEDS: Sodium Chloride LOK Flush 10 mL Syringe IVFLUSH SCH ×3 (00:37→18:31)
[2016-07-29] MEDS ORDERED: Lactated Ringer's 1,000 ML IV SCH (05:00)
--- NOTE | 2016-07-29 06:30 | NUR ---
Rhythm/Rate: Pt has remained stable in an atrial fibrillation with an IVCD; HR in the 90. Pt having light snack this am before 0700. Then strict NPO for KALINA this afternoon.
[2016-07-29] MEDS: Insulin LISPRO 300 Unit/3 mL Inj SUBQ SCH ×4 (08:00→21:20)
[2016-07-29 08:10] LABS: BASOPHILS % (AUTO) 0.4 % (0-3); EOSINOPHILS % (AUTO) 1.3 % (0-5); MONOCYTES % (AUTO) 13.2 % (4-12); Mean Corpuscular Hemoglobin 29.1 pg (27.0-35.0); Mean Corpuscular Volume 92.3 fL (81-100); NEUTROPHILS % (AUTO) 66.7 % (40-74); Platelet Count 218 bil/L (150-400)
[2016-07-29 08:38] LABS: Magnesium 2.3 mg/dL (1.6-2.6); Phosphorus 4.1 mg/dL (2.5-4.9)
[2016-07-29] MEDS: MeTOProlol XL 50 mg ER24 Tablet PO SCH ×3 (08:48→20:30)
[2016-07-29] MEDS ORDERED: Propofol 10,000 mCg/mL 20 mL Inj ONE (09:28)
--- NOTE | 2016-07-29 14:36 | NUR ---
To [facility]IAN[facility]: Pt to [facility] at 1430 via wheelchair, accompanied by this RN. Pt denies pain. Report from primary RN. Telemetry shows Afib with HR in the 80-90's. RA sats 89%; pt denies SOB. Hearts sounds distant and irregular; anterior lung sounds are clear.
--- NOTE | 2016-07-29 15:04 | PCM.HPANE ---
Patient Data Surgeon Admitting Provider:Cassandra Shahid DO Attending Provider:Cassandra Shahid DO Primary Care Physician:Ozzy Lowry MD Other Provider: Reason for Visit Rashid,Chf Ht/WT & BMI Height (Feet): 5 Height (Inches): 11.00 Weight (Kilograms): 137.400 Body Mass Index 44.60 Allergies Coded Allergies: No Known Allergies (Verified Allergy, Severe, POLLEN, 06/07/07) Past Anesthesia History Anesthesia History: Denies:: Anesthesia Reactions Diabetes History Hx Diabetes?: Yes (146) Current Bedside Blood Glucose: 133 MRSA MRSA: No Medications Hypertension Medication: Yes Home Meds Incl Beta Wendy: Yes Date Beta Wendy Taken: Jul 29, 2016 Time Beta Wendy Taken: 08:00 Reported Medications Potassium Chloride 10 Meq Capsule.er10 Meq PO DAILY 30 Days Ref 0 TAKE WITH FOOD 07/21/16 Furosemide 40 Mg [id number] Mg PO BID 07/21/16 Ferrous Gluconate 324 Mg [id number] Mg PO DAILY Ref 0 07/21/16 Apixaban (Eliquis)5 Mg Tablet2.5 Mg PO BID 07/21/16 Zolpidem 10 Mg [id number] Mg PO HS PRN HS Ref 0 07/21/16 Digoxin 125 Mcg [id number] Mcg PO DAILY #30 TABLET Ref 0 07/21/16 Metoprolol Succinate ER 50 Mg Tab.er.24h50 Mg PO BID Ref 0 07/21/16 History History of ENT Problems?: No HEENT History: Positive for:: Abnormal Airway Denture Type: None Teeth Condition: Within Normal Limits Other History/Comment history of tracheostomy Hx of Heart Problems?: Yes Cardiovascular History: Positive for:: Congestive Heart Failure Edema Hypertension Irregular Heartbeat (ATRIAL FIB) Denies:: Cardiac Surgery Chest Pain Heart Murmur Pacemaker Thrombophlebitis Other Cardiac History: high lipids Hx of Respiratory Problem?: Yes Respiratory History: Positive for:: COPD Dyspnea Hx Neurologic Problems?: No Neurological History: Denies:: CVA Hx of GI Problems?: Yes Hx of Problems?: No Male Hx: Denies:: Prostate Problems Scrotal Mass Testicular Surgery Hx Musculoskeletal Problems?: Yes Musculoskeletal History: Positive for:: Back Injury Denies:: Joint Replacement Musculoskeletal Trauma Hx of Psycho/Social Problems?: No Hx Surgeries?: Yes (KNEE SURGERY, HERNIA, PFO PATCH, TONSILS) Other History: Positive for:: Hospitalization Denies:: Cancer Thyroid Disease History Blood Transfusions: Positive for:: Accept Blood Products? Blood Transfusions Denies:: Blood Transfuse Reaction Hx Diabetes: Yes (146)Bedside Blood Glucose: 133 Occupation: retired white Hx Alcohol Use: Yes (quit in 2007)Hx Substance Use: Yes (marijuana only) Smoking Status: Former Smoker Have You Smoked inLast 12 mo: NoApprox How Many Cigarettes/day: 1PPD Stop/Bang Treated for Sleep Apnea?: Yes Do You Have a CPAP Machine?: Yes (IN ROOM) KANG Risk Assessment: High Risk, =/>3 Yes Risk Assessment Category Category 1A: Patient has history of documented sleep apnea, and HAS NOT received any narcotic, sedative or anesthesia administration during this stay. Category 1B: Patient has history of documented sleep apnea, and HAS received any narcotic , sedative or anesthesia administration during this stay Category 2: Patient has SUSPECTED Obstructive Sleep Apnea, and HAS received any narcotic , sedative or anesthesia administration during this stay. Category 3: Patient has SUSPECTED Obstructive Sleep Apnea and HAS NOT received narcotic, sedative or anesthesia administration during this stay. Category 4: Outpatient in Procedural Areas with known sleep apnea or who screen positive for High Risk via the STOP/BANG questionnaire. Exam Exam Vital Signs Vital Signs Date Time Temp Pulse Resp B/P Pulse Ox O2 Delivery O2 Flow Rate FiO2 07/29/16 14:41 37.2 92 22 104/83 94 Room Air 07/29/16 12:14 36.4 90 18 101/69 90 Room Air 07/29/16 08:37 98 07/29/16 08:30 36.5 86 18 104/72 92 Room Air General Appearance: Alert, Oriented X3, Cooperative, No Acute Distress HEENT/AIRWAY: MP 3 Lungs: Clear to Auscultation Heart: Exam Unremarkable Meds/Labs/Diagnostics Admission Meds Current Medications Sodium Chloride (Saline Jacklyn Flush) 10 ml JACKLYN IVFLUSH Last administered on t 08:50; Start 07/28/16 at 16:30 Bedside Blood Glucose: 133 Labs Test 07/20/16 23:54 07/21/16 00:00 07/21/16 03:00 07/22/16 03:00 Activated Partial Thromboplast Time 30.7sec (22.8-33.0) Hemoglobin A1c 5.8% (4.8-5.6) Troponin T < 0.010ug/L (0.0-0.011) Pro-B-Type Natriuretic Peptide 3061pg/mL (0-376) Thyroid Stimulating Hormone (TSH) 1.610uIU/mL (0.450-4.500) Direct Bilirubin 0.8mg/dL (0.0-0.3) Hepatitis A IgM Antibody Negative (Negative) Hepatitis B Surface Antigen Negative (Negative) Hepatitis B Core IgM Antibody Negative (Negative) Hepatitis C Antibody <0.1s/co ratio (0.0-0.9) Hepatitis C Comment Comment (.) Lactic Acid Level 2.1mmol/L (0.4-2.0) Test 07/24/16 07:00 07/24/16 07:25 07/24/16 21:21 07/25/16 03:12 Prothrombin Time 14.1sec (8.1-12.5) Prothromb Time International Ratio 1.31ratio Triglycerides Level 145mg/dL (0-149) Cholesterol Level 141mg/dL (100-199) LDL Cholesterol, Calculated 94.000mg/dL (0-99) VLDL Cholesterol 29.000mg/dL HDL Cholesterol 18mg/dL (>39) Cholesterol/HDL Ratio 7.83 (0.0-4.4) Procalcitonin 0.41ng/mL (0.00-0.08) Urine Color Yellow (YELLOW) Urine Appearance Hazy (CLEAR,HAZY) Urine pH 5.5 (5.0-8.0) Urine Specific Tinnie 1.015 (1.003-1.035) Urine Protein Negativemg/dL (NEG,TRACE) Urine Glucose (UA) Negativemg/dL (NEGATIVE) Urine Ketones Negativemg/dL (NEGATIVE) Urine Occult Blood Negative (NEGATIVE) Urine Nitrite Negative (NEGATIVE) Urine Bilirubin Negative (NEGATIVE) Urine Urobilinogen Normalmg/dL (NORMAL) Urine Leukocyte Esterase Negative (NEGATIVE) Urine RBC 0-2/hpf (0-2) Urine WBC 0-5/hpf (0-5) Urine Epithelial Cells Occasional/hpf (NONE-MOD) Urine Crystals Uric acid crystals (NONE Urine Bacteria Few/hpf (NONE-FEW) Urine Hyaline Casts None/lpf (NONE) Urine Granular Casts None seen (NONE SEEN) Urine Waxy Casts None seen (NONE SEEN) Urine Red Blood Cell Casts None seen (NONE SEEN) Urine White Blood Cell Casts None seen (NONE SEEN) Urine Mucus Present (None Seen) Urine Trichomonas None seen (NONE SEEN) Urine Yeast None (NONE SEEN) Urinalysis Comment Fine granular casts Urine Culture Reflexed Not indicated Urine Random Creatinine 71mg/dL (22-328) Urine Random Total Protein 7mg/dL (0-15) Uric Acid 15.0mg/dL (2.6-7.2) Test 07/28/16 08:03 07/29/16 08:03 Digoxin Level 0.3nG/mL (0.9-2.0) White Blood Count 8.3th/mm3 (3.8-10.1) Red Blood Count 5.33mil/mm3 (4.40-5.80) Hemoglobin 15.5g/dL (13.8-17.2) Hematocrit 49.2% (41.0-50.0) Mean Corpuscular Volume 92.3fL (81-100) Mean Corpuscular Hemoglobin 29.1pg (27.0-35.0) Mean Corpuscular Hemoglobin Concent 31.5% (32.0-37.0) Red Cell Distribution Width 16.6% (12.3-15.4) Platelet Count 218bil/L (150-400) Neutrophils (%) (Auto) 66.7% (40-74) Lymphocytes (%) (Auto) 18.2% (14-46) Monocytes (%) (Auto) 13.2% (4-12) Eosinophils (%) (Auto) 1.3% (0-5) Basophils (%) (Auto) 0.4% (0-3) Sodium Level 141mEq/L (134-144) Potassium Level 3.3mEq/L (3.5-5.2) Chloride Level 96mEq/L (97-108) Carbon Dioxide Level 32mmol/L (18-29) Blood Urea Nitrogen 29mg/dL (8-27) Creatinine 0.97mg/dL (0.76-1.27) Estimat Glomerular Filtration Rate 82mL/min (>59) Glucose Level 97mg/dL (60-99) Calcium Level 9.3mg/dL (8.5-10.1) Phosphorus Level 4.1mg/dL (2.5-4.9) Magnesium Level 2.3mg/dL (1.6-2.6) Total Bilirubin 1.8mg/dL (0.0-1.2) Aspartate Amino Transf (AST/SGOT) 30U/L (0-50) Alanine Aminotransferase (ALT/SGPT) 143U/L (0-44) Alkaline Phosphatase 92U/L (25-160) Total Protein 6.4g/dL (6.4-8.4) Albumin 3.6g/dL (3.4-5.0) Plan Impression Patient chart reviewed, patient interviewed and anesthestic plan with risks, benefits, and alternatives discussed, and informed consent obtained. ASA Physical Status: ASA3 Severe Disease Anesthetic Plan: MAC Bene/Risks/Altern/Consents: Yes HP Complete Prior to Induction: Yes Selwyn Marcelo MD Jul 29, 2016 15:04
--- NOTE | 2016-07-29 16:00 | PCM.DIMED ---
ThompsonGuillermo DO 07/29/16 1600: Discharge Instructions Date of Service Jul 29, 2016 Dates of Hospitalization Jul 21, 2016 at 01:01 Discharge Diagnosis Discharge Diagnosis atrial fibrillation with rapid ventricular response, POA, acute on chronic. Improving: Your atrial fibrillation was difficult to manage during your hospital stay, likely because it took a while to get enough diuretic medication( the IV form of your water pill) to get you to start getting rid of your excess fluid. When the heart is overloaded with fluid it causes it to stretch which can make your Atrial fibrillation worse and more difficult to control. We were able to get your heart back into a normal rhythm by shocking it. You will need to follow up with Dr. Lyman to make sure it stays in a normal rhythm. Acute on chronic hypoxemic respiratory failure: When you came in you were having some difficulty breathing; again most likely because you had too much fluid in your body and it was getting backed up into your lungs. Tachycardia induced cardiomyopathy: Your heart was damaged from beating too fast for too long. This causes stress to the heart which can cause it to weaken. The good news is that if you can get your heart rate under control, you can eventually improve the function of your heart and repair some of the damage that has been done. Acute exacerbation of Chronic systolic heart failure: The damage from your heart beating too fast for too long caused it to not pump as well. This lead to a build up of fluid that further weakened the heart. We were able to get the extra fluid out of your body which should help your heart pump more effectively. Leukocytosis, POA: You had a high white blood cell count when you arrived, this is most often a sign that you have an infection in your body. However, in your case you did not appear to have an infection, rather the white blood cells were elevated because of the stress your heart was under and your high uric acid levels. Acute liver failure with elevated indirect bilirubin and transaminase: When you came in your liver was no doing well at all. You had lab values that showed your liver was actively failing. This was most likely due to the overall fluid overload and congestion from your heart failure. Your liver has been improving steadily, and is very near to normal values at this time. I fully expect your liver to recover without any lingering damage. Hyperglycemia: Your blood sugar was high when you came in. Your A1c, which is a measure of your average blood sugar over the past 3 months was the same as it has been in the past. You do not have diabetes at this time. Your blood sugar was most likely elevated from the stress your body was under with your heart and liver problems. Hyperlipidemia: Your cholesterol was mildly elevated, but not dangerously so. Keep taking your usual cholesterol medications as they appear to be working well for you. Diet Discharge Diet: Heart Healthy Activity Discharge Activity: No restrictions Call your provider Call your provider for: Fever or Chills, Shortness of breath, Bleeding, Chest pain, Vomitting, Excessive diarrhea, Weakness (unilateral) Patient Instructions Patient Instructions It is very important that you either establish care with a primary care doctor in your area, or move back to this area in the very near future. Your heart failure and atrial fibrillation will need to be followed very closely, and it will be very difficult to do so if you continue to live in [facility] and commute over here for your medical care, particularly during the winter months when travel across the mountains is difficult and dangerous. Follow-up plan Please follow up with Dr. Lowry and Dr. Lyman in 2-3 weeks, we will try to make you appointments to see them both on the same day if possible so you only have to make 1 trip. As above you should really establish care with doctors closer to where you live, or move back over here as quickly as possible. Follow-up Provider: Ozzy Lowry MD Follow-up with PCP in: 2 weeks Provider: Jelani Lyman MD Follow-up in: 2 weeks Arely Morgan DO 07/29/16 1800: Discharge Instructions Attending's Statement The patient was seen and examined together with Dr. Thompson on 07/29/16 and I agree with the history, exam and plan as outlined in the note above. Guillermo Thompson DO Jul 29, 2016 16:00 Arely Morgan DO Jul 29, 2016 18:00
--- NOTE | 2016-07-29 16:05 | PCM.ANEP1 ---
Post Anesthesia PACU Phase 1 Assessment Vital Signs Vital Signs Date Time Temp Pulse Resp B/P Pulse Ox O2 Delivery O2 Flow Rate FiO2 07/29/16 16:00 77 20 105/90 92 Nasal Cannula 2.00 07/29/16 15:53 76 23 107/82 93 Nasal Cannula 2.00 07/29/16 15:45 74 23 99/73 94 Oxy Mask 11.00 07/29/16 15:39 72 25 96/67 91 Oxy Mask 11.00 07/29/16 15:35 92 25 92/66 84 Oxy Mask 11.00 07/29/16 14:41 37.2 92 22 104/83 94 Room Air 07/29/16 12:14 36.4 90 18 101/69 90 Room Air 07/29/16 08:37 98 07/29/16 08:30 36.5 86 18 104/72 92 Room Air Anesthetic Administered: MAC Level of Alertness: Awake, talking CURRY's with Equal Strength: Yes Pain: No Pain Scale Score: 0 Nausea or Vomiting: No CV Function & Hydration Stable: No Airway Device: Oxygen Delivery: Nasal Cannula Lungs: Clear to Auscultation Dermatome Level: Full Sensation PACU Phase 2 Assessment Complications: No Follow up Care: No Patient Instructions Provided: N/A Selwyn Marcelo MD Jul 29, 2016 16:05
--- NOTE | 2016-07-29 16:21 | NUR ---
Social Work: Continued Discharge Planning D: EMR reviewed. Pt is on day 8 of hospitalization. Per MD in AM multi-disciplinary rounds, pt is likely to discharge tomorrow. Pt would like SW to call [facility] first thing 07/31 to coordinate transportation as MAYO lives in [place]. Pt had complaints regarding the phone lines and that he was not able to make long distance calls. WILLIAN provided pt with pt advocate contact information and administration business card. A: Pt who is independent at baseline P: Pt would like SW to call [facility] first thing 07/31 to coordinate transportation as MAYO lives in [place]. NAYELI Arzola
--- NOTE | 2016-07-29 17:04 | PCM.DC.MED ---
Discharge Summary Date of Service Jul 29, 2016 Dates of Hospitalization Date of Hospital Admission Jul 21, 2016 at 01:01 Date of Discharge: Jul 30, 2016 Providers: Admitting Physician: Cassandra Shahid DO Primary Care Physician: Ozzy Lowry MD Attending Physician: Cassandra Shahid DO Diagnosis at Time of Discharge Diagnosis at Time of Discharge atrial fibrillation with rapid ventricular response, POA, acute on chronic. Improving: Your atrial fibrillation was difficult to manage during your hospital stay, likely because it took a while to get enough diuretic medication( the IV form of your water pill) to get you to start getting rid of your excess fluid. When the heart is overloaded with fluid it causes it to stretch which can make your Atrial fibrillation worse and more difficult to control. We were able to get your heart back into a normal rhythm by shocking it. You will need to follow up with Dr. Lyman to make sure it stays in a normal rhythm. Acute on chronic hypoxemic respiratory failure: When you came in you were having some difficulty breathing; again most likely because you had too much fluid in your body and it was getting backed up into your lungs. Tachycardia induced cardiomyopathy: Your heart was damaged from beating too fast for too long. This causes stress to the heart which can cause it to weaken. The good news is that if you can get your heart rate under control, you can eventually improve the function of your heart and repair some of the damage that has been done. Acute exacerbation of Chronic systolic heart failure: The damage from your heart beating too fast for too long caused it to not pump as well. This lead to a build up of fluid that further weakened the heart. We were able to get the extra fluid out of your body which should help your heart pump more effectively. Leukocytosis, POA: You had a high white blood cell count when you arrived, this is most often a sign that you have an infection in your body. However, in your case you did not appear to have an infection, rather the white blood cells were elevated because of the stress your heart was under and your high uric acid levels. Acute liver failure with elevated indirect bilirubin and transaminase: When you came in your liver was no doing well at all. You had lab values that showed your liver was actively failing. This was most likely due to the overall fluid overload and congestion from your heart failure. Your liver has been improving steadily, and is very near to normal values at this time. I fully expect your liver to recover without any lingering damage. Hyperglycemia: Your blood sugar was high when you came in. Your A1c, which is a measure of your average blood sugar over the past 3 months was the same as it has been in the past. You do not have diabetes at this time. Your blood sugar was most likely elevated from the stress your body was under with your heart and liver problems. Hyperlipidemia: Your cholesterol was mildly elevated, but not dangerously so. Keep taking your usual cholesterol medications as they appear to be working well for you. Consultations Cardiology with Dr. Rodriguez, Dr. Steinberg, and Dr. Lyman Nephrology with Dr. Montesinos Procedures XRay, CTs & MRIs X-RAY CHEST ONE VIEW, PORTABLE IMPRESSION: Cardiomegaly and interstitial prominence. No definite acute cardiopulmonary process. Dictated by: Justice MARTINEZ Interpreted: Catalina Maxwell MD on 07/21/2016 at 9:09 Transcribed by: WILSON on 07/21/2016 at 9:09 Approved by: Catalina Maxwell M.D. on 07/21/2016 at 10:14 . Other Diagnostics PROCEDURE: US ABDOMEN, LIMITED IMPRESSION: 1. No ascites. 2. Probable chronic liver and kidney disease. No hydronephrosis of the kidneys. Dictated by: Justice MARTINEZ Interpreted: Kevin Kearney MD on 07/21/2016 at 14 :40 Transcribed by: JACKY on 07/21/2016 at 14:42 Approved by: Kevin Kearney M.D. on 07/21/2016 at 15:10 . Brief History Taken from History and Physical composed by Dr. Baker on 07/21/16 65-year-old male with past medical history remarkable for high output/ tachycardia associated cardiomyopathy, chronic systolic heart failure, and atrial fibrillation presents with 1 week of worsening shortness of breath. The patient states that he has noted the shortness of breath both at rest and with exertion stating he can only walk less than 50ft before needing to stop as well as lying flat. The patient states that he has not been able to sleep more than a few hours due to severe orthopnea. The patient states that he has had a dry cough recently which he is not sure is associated with his heart failure or seasonal allergies. The patient states that he believes his belly is more distended and with associated lower extremity swelling. The patient also admits to nausea without vomiting or diarrhea. Patient states that his heart rate is chronically elevated but not as elevated as it is today. The patient states that he continues to only take half of a tab of Eliquis daily due to rectal bleeding he believes is due to hemorrhoids without a formal diagnosis. He has not had a colonoscopy ever. The patient is also only taking a half tab of metoprolol XL due to drug associated fatigue. 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 The patient had a possible gout flare after his last outpatient cardiology appointment delaying his scheduling of the cardioversion. He states that he lives in [facility] however he remains a patient of Dr. Reeder and Dr. Lowry. . Hospital Course 65-year-old male with past medical history remarkable for high output/ tachycardia associated cardiomyopathy, chronic systolic heart failure, and atrial fibrillation presents with 1 week of worsening shortness of breath. Overall clinical course was complicated by difficult to control Afib, and diuretic titration which was exacerbated greatly by patient non-compliance with medical recommendations. He was eventually able to be rate controlled with Amiodarone, and subsequently underwent KALINA and cardioversion which successfully converted him to sinus rhythm. He was subsequently discharged in good condition with follow up instructions and return precautions. For full hospital course see below atrial fibrillation with rapid ventricular response, POA, acute on chronic. Improving - ECG shows A. fib with RVR; patient not compliant with mediation regimen at home - Metoprolol Succinate 50 mg TID per cardiology - Initially continued on diltiazem drip from ED - Continue abixaban - Cardiology consulted and we appreciate their expertise - Amiodarone Drip per cardiology started 07/25/16; transitioned to PO - Adequate diuresis was achieved with Lasix drip - KALINA with subsequent cardioversion established sinus rhythm on 07/29/16 Acute on chronic hypoxemic respiratory failure, POA, acute on chronic. Active - Patient with desaturation as low as 70s without supplemental O2 on admission - Patient initially only intermittently compliant with O2 supplementation initially, thus frequent hypoxemic events, eventually became compliant with less desaturation - Likely secondary to CHF exacerbation - Diuresis and cardiac management as outlined above - Lasix drip with strict I/Os Tachycardia induced cardiomyopathy, POA, chronic. Active - Echocardiogram from 2014 shows EF of 40-45%, repeat ECHO shows EF 20-25% per report - Continue outpatient digoxin 0.0625mg(Dig level undetectable) - Amiodarone transitioned to PO - Metoprolol as above Acute exacerbation of Chronic systolic heart failure, POA, acute on chronic. Active - Patient appeared hypervolemic on exam on presentation, and elevated Pro-BNP 3061 - Echocardiogram from 2014 shows EF of 40-45%, now 20-25% - Continued outpatient losartan 25 mg daily - Lasix drip as above - Nephrology consulted to evaluate poor urine output in the face of diuretic therapy Leukocytosis, POA, acute. Resolved - Perhaps secondary to elevated uric acid - Patient was SIRS positive with WBC 13.1, heart rate 163, respiratory rate 30 upon admission - Elevated Lactic Acid 2.5 with elevated procalcitonin of 0.48 consistent with possible infection - No definitive source of infection is identified and patient did not appear acutely infectious at intake - Patient was hypervolemic with CHF described above - Acute hepatitis panel negative - Blood cultures negative - CXR ordered and demonstrative of CHF without acute infiltrate - Abdominal US negative for ascites, indicative of perhaps liver or kidney disease - ID consulted and we appreciate their input Acute liver failure with elevated indirect bilirubin and transaminase, POA, chronicity uncertain. Improving - AST 1279 and ALT 922 with indirect bilirubin 2.4 on admission, now improving - Initial scoring: Meld 20 indicative of 6% 3 month mortality, Maddrey discriminate function 53 indicative of benefit from steroids - Patient denies risky sexual activity or illicit drug use - Acute hepatitis negative - Potential congestive hepatopathy - Abdominal US as above - Will closely monitor with Amiodarone therapy Hyperglycemia, POA, chronic. Active - A1c 5.8 - Correction scale lispro ordered, patient refused glucose checks and correctional insulin - Constant carb diet Subclinical Hypothyroidism, POA, chronic. Active - Per [facility] records which also indicated an TSH of 0.811 in June 2012 - TSH within normal limits - Not currently on outpatient medication Hyperlipidemia, POA, chronic. Active - Per [facility] records which also indicated LDL 107, HDL 39, total cholesterol 177 - Rechecked this admission total Chol 141, LDL 94, HDL 29, TriG 145 - Not currently on outpatient medication - Withholding Statin due to liver failure History of Moderate aortic arch aneurysm, POA, chronic. Active - Complete echo, and subsequent KALINA with results as above - Monitor History of lower GI bleed, POA, chronicity uncertain. Active - [facility] records indicate possible diverticulosis - Patient indicates bright blood on toilet tissue when taking full dose of Apixaban - Encourage patient to obtain colonoscopy in near future - Hemoglobin is 15.5 - Monitor with initiation of full dose Apixaban Exam Vital Signs (Last) Date Time Temp Pulse Resp B/P Pulse Ox O2 Delivery O2 Flow Rate FiO2 07/29/16 16:32 78 18 108/71 92 Room Air 07/29/16 16:10 2.00 07/29/16 14:41 37.2 07/25/16 09:01 50 Exam Gen: A/O x3, very talkative and tangential gentleman Neck: Large circumference neck, no JVD, Full ROM HEENT: PERRL, EOMI, no scleral icterus, no conjunctival pallor CV: Very distant heart sounds, irregularly irregular with rate in 90s, no perceptible murmurs Resp: Lungs with mild bibasilar crackles, no wheezing rales or rhonchi Abd: Large protuberant belly,BS+ 4Q, no rebound masses or guarding Extr: +2 pitting BL LE edema improved from prior exam, no cyanosis or clubbing Neuro: CN 2-12 grossly intact, no focal neurologic deficit Psych: Pleasant and appropriate mood and affect with tangential conversation Test 07/20/16 23:54 07/21/16 00:00 07/21/16 03:00 07/22/16 03:00 Activated Partial Thromboplast Time 30.7sec (22.8-33.0) Hemoglobin A1c 5.8% (4.8-5.6) Troponin T < 0.010ug/L (0.0-0.011) Pro-B-Type Natriuretic Peptide 3061pg/mL (0-376) Thyroid Stimulating Hormone (TSH) 1.610uIU/mL (0.450-4.500) Direct Bilirubin 0.8mg/dL (0.0-0.3) Hepatitis A IgM Antibody Negative (Negative) Hepatitis B Surface Antigen Negative (Negative) Hepatitis B Core IgM Antibody Negative (Negative) Hepatitis C Antibody <0.1s/co ratio (0.0-0.9) Hepatitis C Comment Comment (.) Lactic Acid Level 2.1mmol/L (0.4-2.0) Test 07/24/16 07:00 07/24/16 07:25 07/24/16 21:21 07/25/16 03:12 Prothrombin Time 14.1sec (8.1-12.5) Prothromb Time International Ratio 1.31ratio Triglycerides Level 145mg/dL (0-149) Cholesterol Level 141mg/dL (100-199) LDL Cholesterol, Calculated 94.000mg/dL (0-99) VLDL Cholesterol 29.000mg/dL HDL Cholesterol 18mg/dL (>39) Cholesterol/HDL Ratio 7.83 (0.0-4.4) Procalcitonin 0.41ng/mL (0.00-0.08) Urine Color Yellow (YELLOW) Urine Appearance Hazy (CLEAR,HAZY) Urine pH 5.5 (5.0-8.0) Urine Specific [place] 1.015 (1.003-1.035) Urine Protein Negativemg/dL (NEG,TRACE) Urine Glucose (UA) Negativemg/dL (NEGATIVE) Urine Ketones Negativemg/dL (NEGATIVE) Urine Occult Blood Negative (NEGATIVE) Urine Nitrite Negative (NEGATIVE) Urine Bilirubin Negative (NEGATIVE) Urine Urobilinogen Normalmg/dL (NORMAL) Urine Leukocyte Esterase Negative (NEGATIVE) Urine RBC 0-2/hpf (0-2) Urine WBC 0-5/hpf (0-5) Urine Epithelial Cells Occasional/hpf (NONE-MOD) Urine Crystals Uric acid crystals (NONE Urine Bacteria Few/hpf (NONE-FEW) Urine Hyaline Casts None/lpf (NONE) Urine Granular Casts None seen (NONE SEEN) Urine Waxy Casts None seen (NONE SEEN) Urine Red Blood Cell Casts None seen (NONE SEEN) Urine White Blood Cell Casts None seen (NONE SEEN) Urine Mucus Present (None Seen) Urine Trichomonas None seen (NONE SEEN) Urine Yeast None (NONE SEEN) Urinalysis Comment Fine granular casts Urine Culture Reflexed Not indicated Urine Random Creatinine 71mg/dL (22-328) Urine Random Total Protein 7mg/dL (0-15) Uric Acid 15.0mg/dL (2.6-7.2) Test 07/28/16 08:03 07/29/16 08:03 Digoxin Level 0.3nG/mL (0.9-2.0) White Blood Count 8.3th/mm3 (3.8-10.1) Red Blood Count 5.33mil/mm3 (4.40-5.80) Hemoglobin 15.5g/dL (13.8-17.2) Hematocrit 49.2% (41.0-50.0) Mean Corpuscular Volume 92.3fL (81-100) Mean Corpuscular Hemoglobin 29.1pg (27.0-35.0) Mean Corpuscular Hemoglobin Concent 31.5% (32.0-37.0) Red Cell Distribution Width 16.6% (12.3-15.4) Platelet Count 218bil/L (150-400) Neutrophils (%) (Auto) 66.7% (40-74) Lymphocytes (%) (Auto) 18.2% (14-46) Monocytes (%) (Auto) 13.2% (4-12) Eosinophils (%) (Auto) 1.3% (0-5) Basophils (%) (Auto) 0.4% (0-3) Sodium Level 141mEq/L (134-144) Potassium Level 3.3mEq/L (3.5-5.2) Chloride Level 96mEq/L (97-108) Carbon Dioxide Level 32mmol/L (18-29) Blood Urea Nitrogen 29mg/dL (8-27) Creatinine 0.97mg/dL (0.76-1.27) Estimat Glomerular Filtration Rate 82mL/min (>59) Glucose Level 97mg/dL (60-99) Calcium Level 9.3mg/dL (8.5-10.1) Phosphorus Level 4.1mg/dL (2.5-4.9) Magnesium Level 2.3mg/dL (1.6-2.6) Total Bilirubin 1.8mg/dL (0.0-1.2) Aspartate Amino Transf (AST/SGOT) 30U/L (0-50) Alanine Aminotransferase (ALT/SGPT) 143U/L (0-44) Alkaline Phosphatase 92U/L (25-160) Total Protein 6.4g/dL (6.4-8.4) Albumin 3.6g/dL (3.4-5.0) Microbiology Results Blood cultures no growth after 5 days Discharge Medications Discharge Medications Allopurinol (Allopurinol) 100 Mg Tablet 100 MG PO DAILY Prescribed by: DAGOBERTO THOMPSON DO Amiodarone (Amiodarone) 200 Mg Tablet 200 MG PO BID Prescribed by: DAGOBERTO THOMPSON DO Amiodarone (Amiodarone) 200 Mg Tablet 200 MG PO DAILY Prescribed by: DAGOBERTO THOMPSON DO Apixaban (Eliquis) 5 Mg Tablet 5 MG PO BID Prescribed by: DAGOBERTO THOMPSON DO Ferrous Gluconate (Ferrous Gluconate) 324 Mg Tab 324 MG PO DAILY (Reported) Losartan Potassium (Losartan Potassium) 25 Mg Tablet 25 MG PO DAILY Prescribed by: DAGOBERTO THOMPSON DO Metoprolol Succinate ER (Metoprolol Succinate ER) 50 Mg Tab.er.24h 50 MG PO BID (Reported) Potassium Chloride (Potassium Chloride) 10 Meq Capsule.er 10 MEQ PO DAILY ( Reported) TAKE WITH FOOD Spironolactone (Aldactone) 25 Mg Tablet 25 MG PO DAILY Prescribed by: DAGOBERTO THOMPSON DO Torsemide (Demadex) 20 Mg Tablet 40 MG PO DAILY Prescribed by: DAGOBERTO THOMPSON DO As needed Zolpidem (Zolpidem) 10 Mg Tablet 10 MG PO HS PRN PRN HS (Reported) Followup Plan Disposition: Home Follow-up plan Please follow up with Dr. Lowry and Dr. Lyman in 2-3 weeks, we will try to make you appointments to see them both on the same day if possible so you only have to make 1 trip. As above you should really establish care with doctors closer to where you live, or move back over here as quickly as possible. Discharge Diet: Heart Healthy Discharge Activity: No restrictions Patient Instructions It is very important that you either establish care with a primary care doctor in your area, or move back to this area in the very near future. Your heart failure and atrial fibrillation will need to be followed very closely, and it will be very difficult to do so if you continue to live in [facility] and commute over here for your medical care, particularly during the winter months when travel [place] the [place] is difficult and dangerous. Follow-up Provider: Ozzy Lowry MD Follow-up with PCP in: 2 weeks Provider: Jelani Lyman MD Follow-up in: 2 weeks Time spent Time spent counseling patient and coordinating discharge > 35 minutes Attending Statement The patient was seen and examined independently and case discussed with Dr. Thompson on 07/30/16 and I agree with the discharge summary and plan as outlined in the note above. copies to: Jelani Lyman MD; Ozzy Lowry MD, David E DO Jul 29, 2016 17:04 Arely Morgan DO Jul 29, 2016 18:23 Eduar Kidd MD Jul 30, 2016 15:13
--- NOTE | 2016-07-29 17:04 | NUR ---
MARIANELA Patient to [facility] bed 9 at 1440 for KALINA/Cardioversion with anesthesia sedation. Procedure complete without problems and patient convert to sinus rhythm. When patient fully awake and able to take PO, transferred back to room 2024 by WC at 1640. Report to receiving RN.
--- NOTE | 2016-07-29 17:13 | PCM.PNMED ---
Subjective Date of Service Jul 29, 2016 Subjective Patient was interviewed while walking the halls without difficulty. States that he feels very much better and was anxiously looking forward to afternoon KALINA with cardioversion. Denies chest pain, GILLESPIE, abdominal pain, or difficulty with ambulation. No significant overnight events. Comprehensive ROS negative except as outlined above. Exam Vital Signs Vital Sign - Last Date Time Temp Pulse Resp B/P Pulse Ox O2 Delivery O2 Flow Rate FiO2 07/29/16 16:32 78 18 108/71 92 Room Air 07/29/16 16:10 2.00 07/29/16 14:41 37.2 07/25/16 09:01 50 Intake and Output 07/28/16 07/28/16 07/29/16 Cumulative From/Thru 15:00 23:00 07:00 07/20/16 23:33 - 07/29/16 06:35 Intake Total 185 ml 400 ml 640 ml 60781 ml Output Total 1975 ml 925 ml 11485 ml Balance 185 ml -1575 ml -285 ml -7858 ml Intake Oral 400 ml 640 ml 12632 ml IV Total 185 ml 1733 ml Output Urine Total 1975 ml 925 ml 42912 ml # Voids 3 23 # Bowel Movements 1 15 Exam Gen: A/O x3, very talkative and tangential gentleman Neck: Large circumference neck, no JVD, Full ROM HEENT: PERRL, EOMI, no scleral icterus, no conjunctival pallor CV: Very distant heart sounds, irregularly irregular with rate in 90s, no perceptible murmurs Resp: Lungs with mild bibasilar crackles, no wheezing rales or rhonchi Abd: Large protuberant belly,BS+ 4Q, no rebound masses or guarding Extr: +2 pitting BL LE edema improved from prior exam, no cyanosis or clubbing Neuro: CN 2-12 grossly intact, no focal neurologic deficit Psych: Pleasant and appropriate mood and affect with tangential conversation Lab and Diagnostics Item Value Date Time Red Blood Count 5.33 mil/mm3 07/29/16 0803 Mean Corpuscular Volume 92.3 fL 07/29/16 0803 Mean Corpuscular Hemoglobin 29.1 pg 07/29/16 0803 Mean Corpuscular Hemoglobin Concent 31.5 % L 07/29/16 0803 Red Cell Distribution Width 16.6 % H 07/29/16 0803 Neutrophils (%) (Auto) 66.7 % 07/29/16 0803 Lymphocytes (%) (Auto) 18.2 % 07/29/16 0803 Monocytes (%) (Auto) 13.2 % H 07/29/16 0803 Eosinophils (%) (Auto) 1.3 % 07/29/16 0803 Basophils (%) (Auto) 0.4 % 07/29/16 08 Estimat Glomerular Filtration Rate 77 mL/min 07/24/16 0725 Calcium Level 9.0 mg/dL 07/24/16 0725 Phosphorus Level 5.0 mg/dL H 07/24/16 0725 Magnesium Level 2.6 mg/dL 07/24/16 0725 Potassium Level 3.3 mEq/L L 07/29/16 08 Calcium Level 9.3 mg/dL 07/29/16 0803 Phosphorus Level 4.1 mg/dL 07/29/16 0803 Total Bilirubin 1.8 mg/dL H 07/29/16 0803 Magnesium Level 2.3 mg/dL 07/29/16 0803 Aspartate Amino Transf (AST/SGOT) 30 U/L 07/29/16 0803 Alanine Aminotransferase (ALT/SGPT) 143 U/L H 07/29/16 0803 Alkaline Phosphatase 92 U/L 07/29/16 0803 Total Protein 6.4 g/dL 07/29/16 0803 Albumin 3.6 g/dL 07/29/16 0803 Result Diagram: 07/29/16 0803 07/29/16 08 Microbiology Blood cultures no growth after 5 days X-Rays, CTs and MRIs X-RAY CHEST ONE VIEW, PORTABLE IMPRESSION: Cardiomegaly and interstitial prominence. No definite acute cardiopulmonary process. Dictated by: Justice MARTINEZ Interpreted: Catalina Maxwell MD on 07/21/2016 at 9:09 Transcribed by: WILSON on 07/21/2016 at 9:09 Approved by: Catalina Maxwell M.D. on 07/21/2016 at 10:14 . Additional Diagnostics PROCEDURE: US ABDOMEN, LIMITED IMPRESSION: 1. No ascites. 2. Probable chronic liver and kidney disease. No hydronephrosis of the kidneys. Dictated by: Justice MARTINEZ Interpreted: Kevin Kearney MD on 07/21/2016 at 14 :40 Transcribed by: JACKY on 07/21/2016 at 14:42 Approved by: Kevin Kearney M.D. on 07/21/2016 at 15:10 . Assessment & Plan 65-year-old male with past medical history remarkable for high output/ tachycardia associated cardiomyopathy, chronic systolic heart failure, and atrial fibrillation presents with 1 week of worsening shortness of breath. Overall clinical course has been complicated by difficult to control Afib and diuretic titration; which was exacerbated greatly by patient non-compliance with medical recommendations. He was eventually able to be rate controlled with Metoprolol and amiodarone, and subsequently underwent KALINA and cardioversion today which successfully converted him to sinus rhythm. atrial fibrillation with rapid ventricular response, POA, acute on chronic. Improving - ECG shows A. fib with RVR; patient not compliant with mediation regimen at home - Metoprolol Succinate 50 mg TID per cardiology - Initially continued on diltiazem drip from ED - Continue abixaban - Cardiology consulted and we appreciate their expertise - Amiodarone Drip per cardiology started 07/25/16; transitioned to PO - Adequate diuresis was achieved with Lasix drip - KALINA with subsequent cardioversion established sinus rhythm on 07/29/16 Acute on chronic hypoxemic respiratory failure, POA, acute on chronic. Active - Patient with desaturation as low as 70s without supplemental O2 on admission - Patient initially only intermittently compliant with O2 supplementation initially, thus frequent hypoxemic events, eventually became compliant with less desaturation - Likely secondary to CHF exacerbation - Diuresis and cardiac management as outlined above - Lasix drip with strict I/Os Tachycardia induced cardiomyopathy, POA, chronic. Active - Echocardiogram from 2014 shows EF of 40-45%, repeat ECHO shows EF 20-25% per report - Continue outpatient digoxin 0.0625mg(Dig level undetectable) - Amiodarone transitioned to PO - Metoprolol as above Acute exacerbation of Chronic systolic heart failure, POA, acute on chronic. Active - Patient appeared hypervolemic on exam on presentation, and elevated Pro-BNP 3061 - Echocardiogram from 2014 shows EF of 40-45%, now 20-25% - Continued outpatient losartan 25 mg daily - Lasix drip as above - Nephrology consulted to evaluate poor urine output in the face of diuretic therapy Leukocytosis, POA, acute. Resolved - Perhaps secondary to elevated uric acid - Patient was SIRS positive with WBC 13.1, heart rate 163, respiratory rate 30 upon admission - Elevated Lactic Acid 2.5 with elevated procalcitonin of 0.48 consistent with possible infection - No definitive source of infection is identified and patient did not appear acutely infectious at intake - Patient was hypervolemic with CHF described above - Acute hepatitis panel negative - Blood cultures negative - CXR ordered and demonstrative of CHF without acute infiltrate - Abdominal US negative for ascites, indicative of perhaps liver or kidney disease - ID consulted and we appreciate their input Acute liver failure with elevated indirect bilirubin and transaminase, POA, chronicity uncertain. Improving - AST 1279 and ALT 922 with indirect bilirubin 2.4 on admission, now improving - Initial scoring: Meld 20 indicative of 6% 3 month mortality, Maddrey discriminate function 53 indicative of benefit from steroids - Patient denies risky sexual activity or illicit drug use - Acute hepatitis negative - Potential congestive hepatopathy - Abdominal US as above - Will closely monitor with Amiodarone therapy Hyperglycemia, POA, chronic. Active - A1c 5.8 - Correction scale lispro ordered, patient refused glucose checks and correctional insulin - Constant carb diet Subclinical Hypothyroidism, POA, chronic. Active - Per [facility] records which also indicated an TSH of 0.811 in June 2012 - TSH within normal limits - Not currently on outpatient medication Hyperlipidemia, POA, chronic. Active - Per [facility] records which also indicated LDL 107, HDL 39, total cholesterol 177 - Rechecked this admission total Chol 141, LDL 94, HDL 29, TriG 145 - Not currently on outpatient medication - Withholding Statin due to liver failure History of Moderate aortic arch aneurysm, POA, chronic. Active - Complete echo, and subsequent KALINA with results as above - Monitor History of lower GI bleed, POA, chronicity uncertain. Active - [facility] records indicate possible diverticulosis - Patient indicates bright blood on toilet tissue when taking full dose of Apixaban - Encourage patient to obtain colonoscopy in near future - Hemoglobin is 15.5 - Monitor with initiation of full dose Apixaban Disposition: Patient will likely be able to DC home with close outpatient follow up tomorrow. We will need to coordinate with his friend that social work has been in contact with to facilitate his transport. Pain Evaluation: Adequate Pain Control GI Prophylaxis: Not indicated VTE Prophylaxis: Other (Continue home Eliquis) Resuscitation Status: CPR: Attempt Resuscitation Guillermo Thompson DO Jul 29, 2016 17:07
--- NOTE | 2016-07-29 17:16 | DRSVH ---
[facility] [address] [place] [address] Echocardiogram Report Name: KESHA PANIAGUA ate: 07/29/2016 Height: 70 in Hospital [facility] Weight: 302 lb Gender: Male BSA: 2.5 m2 : 1950 Age: 65 yrs BP: 96/67 mmHg Reason For Study: PRE-CARDIOVERSION Ordering Physician: Performed By: Gerson Kent Interpretation Summary No thrombus is detected in the left atrial appendage. There is no LV thrombus. Procedure: A 2D transesophageal echocardiogram with spectral and color flow Doppler was performed. Informed consent for Transesophageal Echocardiogram, and use of a contrast agent as needed, was obtained prior to the procedure. The patient was brought to the [facility] in a fasting state. An intravenous line was placed. A topical anesthetic agent was used for oropharangeal anesthesia. A bite block was inserted. Sedation was managed by anesthesiologist; see anesthesiology notes for details. The patient was in atrial fibrillation with rapid ventricular response during the exam with a heart rate exceeding 100 bpm. There were no complications. Left Ventricle: There is no thrombus. Left ventricular systolic function is severely reduced. Atria: No thrombus is detected in the left atrial appendage. Reading Physician:MILE
[2016-07-29] MEDS ORDERED: AMIO200T PO ×2 (17:18)
[2016-07-29] MEDS ORDERED: APIX5TAB PO (17:18)
[2016-07-29] MEDS ORDERED: TORS20TA PO (17:18)
[2016-07-29] MEDS ORDERED: LOSA25TA21 PO (17:18)
[2016-07-29] MEDS ORDERED: SPIR25TA PO (17:18)
[2016-07-29] MEDS ORDERED: ZYL100 PO (17:18)
--- NOTE | 2016-07-29 17:48 | PCM.PROC ---
Procedure Note Date of Service: Jul 29, 2016 Pre Procedure Diagnosis: Rapid atrial fibrillation with tachycardia mediated cardiomyopathy Post Procedure Diagnosis: Normal sinus rhythm Procedure: Electrical cardioversion Indication for Procedure: Acute CHF secondary to rapid atrial fibrillation Procedural Analgesia: See anesthesiologist note Procedure Details: A timeout was performing the correct patient procedure were verified. Patient was placed on continuous cardiac monitoring and continuous pulse oximetry. Supplemental oxygen was administered via nasal cannula. Defibrillator pads were placed in the anterior and posterior fashion. The pads were connected to a biphasic defibrillator which was placed in sync mode. After appropriate level of sedation was achieved, synchronize cardioversion was performed at 200 joules with chest fall conversion to sinus rhythm. Post Procedure Plan: Patient scheduled to see me in mid August Jelani Lyman MD Jul 29, 2016 17:48
[2016-07-29] MEDS: Potassium Chloride 20 mEq SR Tablet PO SCH (18:22)
--- NOTE | 2016-07-29 19:30 | NUR ---
Return from [facility] Pt returned from KALINA with cardioversion in SR in the 80s. Per MD order, Torsemide held, but metoprolol and digoxin given. BP 101/61 pulse 80. Pt placed on continuous pulse ox per MD order. Pt ate dinner.
--- NOTE | 2016-07-29 21:55 | NUR ---
Transfer Patient transferred to room 3006 at 2039 from [facility], room 2024. Alert and oriented, has all belongings. Patient's home medications locked in closet by security staff. Vitals stable, telemetry connected. IV's patent. Patient given care notes on new medications, Torsemide and Amiodarone.
[2016-07-30] MEDS: Sodium Chloride LOK Flush 10 mL Syringe IVFLUSH SCH ×2 (00:37→08:02)
[2016-07-30 01:28] VITALS: BP 105/63; PULSE 82; RESP 18; O2SAT 94
[2016-07-30 03:27] VITALS: PULSE 78
[2016-07-30 05:40] VITALS: BP 109/76; PULSE 73; RESP 17; O2SAT 90
[2016-07-30] MEDS: Potassium Chloride 20 mEq SR Tablet PO SCH (07:59)
[2016-07-30] MEDS: Insulin LISPRO 300 Unit/3 mL Inj SUBQ SCH (08:00)
[2016-07-30] MEDS: MeTOProlol XL 50 mg ER24 Tablet PO SCH (08:02)
--- NOTE | 2016-07-30 09:07 | NUR ---
Social Work-discharge: Data:EMR Reviewed. Pt is on day 9 of hospitalization for CHF per H&P. Pt is medically stable for discharge. SW spoke with pt at bedside who confirms he has already gotten in touch with his friend Tu who is on his way to pick pt up from the [facility]. Pt declines any other information. Per RN notes, pt has been up independent in his room. No discharge needs identified. All updated and agreeable to plan. Assessment:Pt who is independent at baseline. Plan:Pt to discharge home today via POV.No discharge needs identified. All updated and agreeable to plan. NAYELI Javed
--- NOTE | 2016-07-30 09:44 | NUR ---
Nursing Discharge Note: Patient was discharged to home at 0930. His IVs were removed intact x2. His telemetry was discontinued . All of his discharge information was reviewed with him and his questions were answered to his satisfaction.Patient was brought to the [facility] lobby in a wheelchair by nursing staff member and he was driven to home by his friend.
--- NOTE | 2016-07-30 11:42 | NUR ---
spiritual care: [facility] greeted me and shared updates including his hopes for resting, medical progress and thoughts about family relationship building following these medical experiences and related learnings. prayer
== END 2016-07-30 09:29 | disposition home or self-care (01) | DRG 308 ==
LOC: SED 23:26 → PCC 07-21 01:01 → MPC 07-29 20:50
PROVIDERS: ADMIT Internal Medicine; ATTEND Internal Medicine
PROC: 4A033R1 Measurement of Arterial Saturation, Peripheral, Percutaneous Approach (ICD-10-PCS; 2016-07-22)
PROC: B245ZZ4 Ultrasonography of Left Heart, Transesophageal (ICD-10-PCS; principal; 2016-07-29)
PROC: 5A2204Z Restoration of Cardiac Rhythm, Single (ICD-10-PCS; 2016-07-29)
DX: I48.2 Chronic atrial fibrillation (principal); I50.23 Acute on chronic systolic (congestive) heart failure; J96.21 Acute and chronic respiratory failure with hypoxia; K72.00 Acute and subacute hepatic failure without coma; Z68.41 Body mass index [BMI] 40.0-44.9, adult; I42.8 Other cardiomyopathies; Z79.01 Long term (current) use of anticoagulants; E11.9 Type 2 diabetes mellitus without complications; G47.33 Obstructive sleep apnea (adult) (pediatric); I71.2 Thoracic aortic aneurysm, without rupture; E66.01 Morbid (severe) obesity due to excess calories; R34 Anuria and oliguria; Z87.891 Personal history of nicotine dependence; T44.7X6A Underdosing of beta-adrenoreceptor antagonists, initial encounter; Z91.128 Patient's intentional underdosing of medication regimen for other reason; Z91.14 Patient's other noncompliance with medication regimen; T45.526A Underdosing of antithrombotic drugs, initial encounter